=== PATIENT | female | born 1995 | race Caucasian/White ===

== ENCOUNTER 2020-05-19 15:15 | Emergency (ER) | payer OTHER ==
[2020-05-19] MEDS ORDERED: METOCLOPRAMIDE INJ 10MG/2ML VIAL (J2765 PER 1) ONE (17:49)
[2020-05-19] MEDS ORDERED: METOCLOPRAMIDE INJ 10MG/2ML VIAL (J2765 PER 1) As Ordered ONE (17:49)
--- NOTE | 2020-06-29 14:17 | ECGEPIP ---
SINUS RHYTHM NORMAL ECG SEE SCANNED DOWNTIME REPORT MTDD
[2020-07-02 18:20] LABS: BASO % 0.6 % (0.0-1.0); EOS # 0.1 10^3/uL (0.0-0.5); EOS % 0.9 % (0.0-3.0); HEMATOCRIT 41.7 % (36.0-47.0); LYMPH # 0.9 10^3/uL (1.5-5.0); LYMPH % 14.1 % (24.0-44.0); MEAN CORPUSCULAR HEMOGLOBIN 27.2 pg (27.0-33.0); MEAN CORPUSCULAR HGB CONC 33.6 g/dl (32.0-36.5); MEAN CORPUSCULAR VOLUME 81.1 fl (80.0-96.0); MONO # 0.4 10^3/uL (0.0-0.8); MONO % 6.6 % (0.0-5.0); NEUTROPHILS % 77.5 % (36.0-66.0); PLATELET COUNT, AUTOMATED 276 10^3/uL (150-450); RED BLOOD COUNT 5.14 10^6/uL (4.00-5.40); WHITE BLOOD COUNT 6.5 10^3/uL (4.0-10.0)
[2020-07-02 18:35] LABS: APPEARANCE, URINE HAZY (CLEAR); BACTERIA, URINE AUTO NEGATIVE (NEGATIVE); BILIRUBIN, URINE AUTO NEGATIVE (NEGATIVE); BLOOD, URINE BLOOD NEGATIVE (NEGATIVE); COLOR, URINE AMBER (YELLOW); GLUCOSE, URINE (UA) AUTO 1+ mg/dL (NEGATIVE); KETONE, URINE AUTO 2+ mg/dL (NEGATIVE); LEUKOCYTE ESTERASE, URINE AUTO NEGATIVE (NEGATIVE); MUCUS, URINE SMALL (NEGATIVE); NITRITE, URINE AUTO NEGATIVE (NEGATIVE); PROTEIN, URINE AUTO 1+ mg/dL (NEGATIVE); RBC, URINE AUTO 0 /HPF (0-3); SPECIFIC GRAVITY URINE AUTO 1.019 (1.002-1.035); SQUAMOUS EPITHELIAL CELL UR AU 3 /HPF (0-6); WBC, URINE AUTO 26 /HPF (0-3)
[2020-08-07 11:46] LABS: ALBUMIN 3.5 GM/DL (3.2-5.2); ALT/SGPT 73 U/L (12-78); BILIRUBIN,DIRECT 0.4 MG/DL (0.0-0.2); BILIRUBIN,TOTAL 1.3 MG/DL (0.2-1.0); BLOOD UREA NITROGEN 7 MG/DL (7-18); CALCIUM LEVEL 9.4 MG/DL (8.5-10.1); CARBON DIOXIDE LEVEL 24 MEQ/L (21-32); CHLORIDE LEVEL 103 MEQ/L (98-107); CK-MB VALUE MASS < 1.0 NG/ML (<3.6); CPK CREATINE PHOSPHOKINASE 109 U/L (26-192); CREATININE FOR GFR 0.72 MG/DL (0.55-1.30); GLOMERULAR FILTRATION RATE > 60.0 (>60); GLUCOSE, FASTING 95 MG/DL (70-100); MAGNESIUM LEVEL 1.9 MG/DL (1.8-2.4); MB/CK RELATIVE INDEX 0.92 (< OR =4); SODIUM LEVEL 136 MEQ/L (136-145); THYROID STIMULATING HORMONE < 0.005 uIU/ML (0.358-3.740); TOTAL PROTEIN 7.5 GM/DL (6.4-8.2); TROPONIN I < 0.02 NG/ML (< 0.10)
== END 2020-05-19 19:43 | disposition home or self-care (01) ==
LOC: M ED 15:15
DX: O26.891 Other specified pregnancy related conditions, first trimester (principal); R55 Syncope and collapse; O21.9 Vomiting of pregnancy, unspecified; Z3A.00 Weeks of gestation of pregnancy not specified
CPT/HCPCS: 80048; 80076; 81001; 82550; 82553; 83735; 84443; 84484; 84703; 85025; 93005; 96374; 99284; J2765

== ENCOUNTER → 2020-05-20 | Emergency (ER) | payer OTHER ==
[~2020-05-20] MED LIST: METOCLOPRAMIDE INJ 10MG/2ML VIAL (J2765 PER 1) As Ordered ONE; METOCLOPRAMIDE INJ 10MG/2ML VIAL (J2765 PER 1) ONE; MULTTAB20 PO; POTASSIUM CHLORIDE 10 MEQ SR TABLET As Ordered ONE; POTASSIUM CHLORIDE 10 MEQ SR TABLET ONE; metroNIDAZOLE (FLAGYL) 500MG TABLET As Ordered ONE; metroNIDAZOLE (FLAGYL) 500MG TABLET ONE
--- NOTE | 2020-06-28 16:49 | ECGEPIP ---
SINUS JUAN CARLOS CARDIA WITH SINUS ARRHYTHMIA BORDERLINE ECG SEE SCANNED DOWNTIME REPORT MTDD
[2020-07-02 09:07] LABS: CHLAMYDIA DNA AMPLIFICATION NEGATIVE (NEGATIVE); GC DNA AMPLIFICATION NEGATIVE (NEGATIVE)
[2020-07-06 11:29] LABS: D-DIMER QUANT 654.72 ng/ml (<500); INR 1.24; PARTIAL THROMBOPLASTIN TIME 26.3 SECONDS (24.2-38.5); PROTHROMBIN TIME 15.9 SECONDS (12.5-14.3)
[2020-07-06 11:48] LABS: APPEARANCE, URINE HAZY (CLEAR); BACTERIA, URINE AUTO NEGATIVE (NEGATIVE); BILIRUBIN, URINE AUTO NEGATIVE (NEGATIVE); BLOOD, URINE BLOOD NEGATIVE (NEGATIVE); COLOR, URINE AMBER (YELLOW); GLUCOSE, URINE (UA) AUTO NEGATIVE (NEGATIVE); KETONE, URINE AUTO 2+ mg/dL (NEGATIVE); LEUKOCYTE ESTERASE, URINE AUTO NEGATIVE (NEGATIVE); MUCUS, URINE SMALL (NEGATIVE); NITRITE, URINE AUTO NEGATIVE (NEGATIVE); PROTEIN, URINE AUTO NEGATIVE (NEGATIVE); RBC, URINE AUTO 3 /HPF (0-3); SPECIFIC GRAVITY URINE AUTO 1.018 (1.002-1.035); SQUAMOUS EPITHELIAL CELL UR AU 6 /HPF (0-6); WBC, URINE AUTO 7 /HPF (0-3)
[2020-07-06 17:18] LABS: BASO # 0.1 10^3/uL (0.0-0.2); BASO % 1.1 % (0.0-1.0); EOS # 0.1 10^3/uL (0.0-0.5); EOS % 1.9 % (0.0-3.0); HEMATOCRIT 36.7 % (36.0-47.0); HEMOGLOBIN 12.2 g/dl (12.0-15.5); LYMPH # 1.4 10^3/uL (1.5-5.0); LYMPH % 26.8 % (24.0-44.0); MEAN CORPUSCULAR HEMOGLOBIN 27.4 pg (27.0-33.0); MEAN CORPUSCULAR HGB CONC 33.2 g/dl (32.0-36.5); MEAN CORPUSCULAR VOLUME 82.5 fl (80.0-96.0); MONO # 0.4 10^3/uL (0.0-0.8); MONO % 6.8 % (0.0-5.0); NEUTROPHILS # 3.4 10^3/uL (1.5-8.5); NEUTROPHILS % 63.2 % (36.0-66.0); PLATELET COUNT, AUTOMATED 251 10^3/uL (150-450); RED BLOOD COUNT 4.45 10^6/uL (4.00-5.40); WHITE BLOOD COUNT 5.3 10^3/uL (4.0-10.0)
[2020-08-08 18:45] LABS: HCG, SERUM QUALITATIVE POSITIVE (NEGATIVE)
[2020-08-08 18:48] LABS: BLOOD UREA NITROGEN 4 MG/DL (7-18); CALCIUM LEVEL 8.7 MG/DL (8.5-10.1); CARBON DIOXIDE LEVEL 25 MEQ/L (21-32); CHLORIDE LEVEL 105 MEQ/L (98-107); CK-MB VALUE MASS < 1.0 NG/ML (<3.6); CPK CREATINE PHOSPHOKINASE 34 U/L (26-192); CREATININE FOR GFR 0.56 MG/DL (0.55-1.30); GLOMERULAR FILTRATION RATE > 60.0 (>60); GLUCOSE, FASTING 84 MG/DL (70-100); LIPASE 54 U/L (73-393); MB/CK RELATIVE INDEX 2.94 (< OR =4); POTASSIUM SERUM 3.4 MEQ/L (3.5-5.1); SODIUM LEVEL 137 MEQ/L (136-145)
== END | disposition home or self-care (01) ==
LOC: M ED 13:45
DX: O26.51 Maternal hypotension syndrome, first trimester (principal); O23.591 Infection of other part of genital tract in pregnancy, first trimester; Z3A.10 10 weeks gestation of pregnancy
CPT/HCPCS: 76801; 80048; 80076; 81001; 82550; 82553; 83690; 84703; 85025; 85379; 85610; 85730; 86850; 86900; 86901; 87086; 87210; 87491; 87591; 93005; 93970; 93976; 96374; 99284; J2765

== ENCOUNTER 2020-08-17 19:01 | Emergency (ER) | payer OTHER ==
[~2020-08-17] VITALS: Ht 167.6 cm; Wt 78.6 kg
[2020-08-17] MEDS ORDERED: MULTTAB20 PO (19:13)
[2020-08-17] MEDS ORDERED: NS 1,000 ML IV ONE (21:30)
[2020-08-17 21:52] LABS: APPEARANCE, URINE HAZY (CLEAR); BACTERIA, URINE AUTO NEGATIVE (NEGATIVE); BILIRUBIN, URINE AUTO NEGATIVE (NEGATIVE); BLOOD, URINE BLOOD NEGATIVE (NEGATIVE); COLOR, URINE YELLOW (YELLOW); GLUCOSE, URINE (UA) AUTO NEGATIVE (NEGATIVE); KETONE, URINE AUTO NEGATIVE (NEGATIVE); LEUKOCYTE ESTERASE, URINE AUTO NEGATIVE (NEGATIVE); NITRITE, URINE AUTO NEGATIVE (NEGATIVE); PROTEIN, URINE AUTO NEGATIVE (NEGATIVE); RBC, URINE AUTO 1 /HPF (0-3); SQUAMOUS EPITHELIAL CELL UR AU 2 /HPF (0-6); UROBILINOGEN, URINE AUTO 0.2 mg/dL (0.0-2.0); WBC, URINE AUTO 1 /HPF (0-3)
[2020-08-17 22:15] LABS: BASO # 0.1 10^3/uL (0.0-0.2); BASO % 0.5 % (0.0-1.0); EOS # 0.2 10^3/uL (0.0-0.5); EOS % 1.4 % (0.0-3.0); HEMATOCRIT 34.2 % (36.0-47.0); HEMOGLOBIN 10.5 g/dl (12.0-15.5); LYMPH # 2.1 10^3/uL (1.5-5.0); LYMPH % 17.2 % (24.0-44.0); MEAN CORPUSCULAR HEMOGLOBIN 26.7 pg (27.0-33.0); MEAN CORPUSCULAR HGB CONC 30.7 g/dl (32.0-36.5); MONO # 0.7 10^3/uL (0.0-0.8); NEUTROPHILS # 8.8 10^3/uL (1.5-8.5); NEUTROPHILS % 74.1 % (36.0-66.0); PLATELET COUNT, AUTOMATED 277 10^3/uL (150-450); RED BLOOD COUNT 3.93 10^6/uL (4.00-5.40); WHITE BLOOD COUNT 11.9 10^3/uL (4.0-10.0)
[2020-08-17 22:48] LABS: CK-MB VALUE MASS < 1.0 NG/ML (<3.6); CPK CREATINE PHOSPHOKINASE 30 U/L (26-192); MB/CK RELATIVE INDEX 3.33 (< OR =4); TROPONIN I < 0.02 NG/ML (< 0.10)
[2020-08-17 22:53] LABS: ALBUMIN 2.6 GM/DL (3.2-5.2); ALT/SGPT 17 U/L (12-78); BILIRUBIN,DIRECT 0.1 MG/DL (0.0-0.2); BILIRUBIN,TOTAL 0.3 MG/DL (0.2-1.0); BLOOD UREA NITROGEN 10 MG/DL (7-18); CALCIUM LEVEL 8.6 MG/DL (8.5-10.1); CARBON DIOXIDE LEVEL 24 MEQ/L (21-32); CHLORIDE LEVEL 108 MEQ/L (98-107); CREATININE FOR GFR 0.59 MG/DL (0.55-1.30); FREE T4 0.92 NG/DL (0.76-1.46); GLOMERULAR FILTRATION RATE > 60.0 (>60); GLUCOSE, FASTING 86 MG/DL (70-100); LIPASE 100 U/L (73-393); POTASSIUM SERUM 3.8 MEQ/L (3.5-5.1); SODIUM LEVEL 139 MEQ/L (136-145); TOTAL PROTEIN 6.2 GM/DL (6.4-8.2)
[2020-08-17 23:47] VITALS: BP 125/63
--- NOTE | 2020-08-18 13:37 | ECGEPIP ---
[facility] - ED Test Date: 2020-08-17 Pat Name: LIANE FIGUEROA Department: Room: - Gender: Female [employer]: BARNEY : 1995 Requested By: ELPIDIO Nuñez PA-C Order Number: [id number] Reading MD: Lilli Hurst Measurements Intervals [place] Rate: 68 P: 54 AK: 137 QRS: 20 QRSD: 102 T: 30 QT: 400 QTc: 428 Interpretive Statements SINUS RHYTHM WITH SINUS ARRHYTHMIA No prior Electronically Signed on 08-18-2020 13:37:24 EST by Lilli Hurst
== END 2020-08-17 23:49 | disposition home or self-care (01) ==
LOC: M ED 19:01
DX: O99.891 Other specified diseases and conditions complicating pregnancy (principal); R42 Dizziness and giddiness; Z87.891 Personal history of nicotine dependence; Z3A.22 22 weeks gestation of pregnancy; Z87.828 Personal history of other (healed) physical injury and trauma

== ENCOUNTER 2020-09-12 13:49 | Outpatient (CLI) | payer OTHER ==
[~2020-09-12] VITALS: Ht 167.6 cm; Wt 83.1 kg
[~2020-09-12 13:49] MED LIST changes: -METOCLOPRAMIDE INJ 10MG/2ML VIAL (J2765 PER 1) As Ordered ONE; -METOCLOPRAMIDE INJ 10MG/2ML VIAL (J2765 PER 1) ONE; -POTASSIUM CHLORIDE 10 MEQ SR TABLET As Ordered ONE; -POTASSIUM CHLORIDE 10 MEQ SR TABLET ONE; -metroNIDAZOLE (FLAGYL) 500MG TABLET As Ordered ONE; -metroNIDAZOLE (FLAGYL) 500MG TABLET ONE
[2020-09-12 14:10] VITALS: BP 129/64
[2020-09-12 15:21] VITALS: BP 112/57
[2020-09-12 16:08] VITALS: BP 99/57
[2020-09-12] MEDS ORDERED: ACETAMINOPHEN 500 MG TAB PO ONE (16:30)
[2020-09-12 17:16] LABS: HEMATOCRIT 32.9 % (36.0-47.0); HEMOGLOBIN 10.3 g/dl (12.0-15.5); MEAN CORPUSCULAR HEMOGLOBIN 26.3 pg (27.0-33.0); MEAN CORPUSCULAR HGB CONC 31.3 g/dl (32.0-36.5); MEAN CORPUSCULAR VOLUME 84.1 fl (80.0-96.0); PLATELET COUNT, AUTOMATED 254 10^3/uL (150-450); RED BLOOD COUNT 3.91 10^6/uL (4.00-5.40); WHITE BLOOD COUNT 10.9 10^3/uL (4.0-10.0)
[2020-09-12 17:23] VITALS: BP 110/58
[2020-09-12 17:49] VITALS: BP 107/57
== END 2020-09-12 18:09 | disposition home or self-care (01) ==
LOC: M LDO 13:49
PROVIDERS: ATTEND Registered Nurse
DX: O99.891 Other specified diseases and conditions complicating pregnancy (principal); Z3A.26 26 weeks gestation of pregnancy; W01.0XXA Fall on same level from slipping, tripping and stumbling without subsequent striking against object, initial encounter
CPT/HCPCS: 36415; 76815; 85027; 85460; G0378; G0463

== ENCOUNTER 2020-11-24 05:23 | Inpatient (IN) | payer OTHER ==
--- NOTE | 2020-11-23 12:59 | HPE ---
HISTORY AND PHYSICAL DATE OF ADMISSION: 11/24/2020 HISTORY OF PRESENT ILLNESS: This lady is a 24-year-old 4, para 2, last menstrual period (LMP) March 04, 2020, estimated date of confinement (EDC) December 16, 2020 by dating ultrasound at eight weeks, two days. Her past history was a previous section times two. Initial section was at 39 weeks because of a breech presentation and the second was an elective repeat section. She came in several days ago with acute itching. liver enzymes were performed and she was given ursodiol for the severe itching and her section was moved up to November 24, 2020. She received a Beta 12 mg 11/22/2020 and received her second dose on 11/23/2020. PAST MEDICAL HISTORY: 1. 10/23/2011 at 38 weeks, primary section, breech presentation, 8 pounds 5 ounces; infant required hip braces for four months. 2. 10/30/2016 at 39 weeks, elective repeat section, 7 pounds 11 ounces. 3. Several years later, had a spontaneous at 6 weeks, which was confirmed. PHYSICAL EXAMINATION: The rest of the examination is unremarkable. She is normocephalic, atraumatic. Neck full range of motion. Pupils equal and reactive to light. Distal pulses are symmetric. No evidence of deep venous thrombosis (DVT), pulmonary embolism (PE) or superficial phlebitis. CHEST: Clear bilaterally to bases. No wheezes or rhonchi. No CVAT. ABDOMEN: Soft. Four quadrant bowel sounds are noted. Symphysis fundus height is 36.5. heart is 145 and regular. Her weight today is 198.8 pounds. She is 5 feet 6 inches. Her initial body mass index (BMI) at visit was 25.8. Blood pressure 131/65, respirations 18, pulse 72. LABORATORY DATA: She is A positive. Human immunodeficiency virus negative. Hepatitis negative. RPR negative. Rubella immune. Varicella nonimmune. Pap was normal. Urine was mixed thuan. Gonorrhea and chlamydia were negative. Her one-hour glucose was 113. Group B Streptococcus (GBS) is pending. We reviewed the risks and benefits of section including hemorrhage, infection, perforation, , reoperation, remote possibility of blood transfusion, remote possibility of hysterectomy for life-threatening bleeding issues, remote possibility of laceration and/or baby in the intensive care unit (NICU) for respiratory difficulty, despite the fact she has had two Beta shots already. Patient expressed understanding of risks and benefits, has significant itching today. She had a nonstress test, which is reactive. All questions were answered, 30 minute discussion. Patient signed a consent form. She is scheduled for COVID testing. supervisor rod placing her medications at [place]. [facility]
[~2020-11-24] VITALS: Ht 167.6 cm; Wt 90.4 kg
[2020-11-24] VITALS (8 sets, daily range): BP systolic 114–128; BP diastolic 56–82
[~2020-11-24 05:23] MED LIST changes: +[UNRECOGNIZED DRUG - OTHER] PO; +[UNRECOGNIZED DRUG - REMARK] PO
--- OUTSIDE RECORDS SUMMARY | 2020-11-24 05:27 | CCD ---
Author Author [facility] Organization [facility] Address Unknown Phone Unavailable Care Team Providers Care Fence Laborer Name Role Phone Li, Zhenbo PA Unavailable Unavailable Li, Zhenbo PA Unavailable Unavailable Li, Zhenbo PA Unavailable Unavailable Li, Zhenbo PA Unavailable Unavailable Swatsworth, A Alfonso PA Unavailable Unavailable Swatsworth, A Alfonso PA Unavailable Unavailable Swatsworth, A Alfonso PA Unavailable Unavailable Swatsworth, A Alfonso PA Unavailable Unavailable Swatsworth, A Alfonso PA Unavailable Unavailable Swatsworth, A Alfonso PA Unavailable Unavailable Swatsworth, A Alfonso PA Unavailable Unavailable Swatsworth, A Alfonso PA Unavailable Unavailable Swatsworth, A Alfonso PA Unavailable Unavailable Swatsworth, A Alfonso PA Unavailable Unavailable Swatsworth, A Alfonso PA Unavailable Unavailable Swatsworth, A Alfonso PA Unavailable Unavailable Swatsworth, A Alfonso PA Unavailable Unavailable Swatsworth, A Alfonso PA Unavailable Unavailable Giuliana MOORE MD Unavailable Unavailable Giuliana MOORE MD Unavailable Unavailable Giuliana MOORE MD Unavailable Unavailable Giuliana MOORE MD Unavailable Unavailable Giuliana MOORE MD Unavailable Unavailable Giuliana MOORE MD Unavailable Unavailable Giuliana MOORE MD Unavailable Unavailable Giuliana MOORE MD Unavailable Unavailable Giuliana MOORE MD Unavailable Unavailable Giuliana MOORE MD Unavailable Unavailable Giuliana MOORE MD Unavailable Unavailable Giuliana MOORE MD Unavailable Unavailable TERESA F SUNNI CHAMPION Unavailable Unavailable TERESAGiuliana MD Unavailable Unavailable TERESA F SUNNI CHAMPION Unavailable Unavailable TERESA, F SUNNI CHAMPION Unavailable Unavailable TERESA, F SUNNI CHAMPION Unavailable Unavailable TERESA, F SUNNI CHAMPION Unavailable Unavailable TERESA, F SUNNI CHAMPION Unavailable Unavailable TERESA, F SUNNI CHAMPION Unavailable Unavailable TERESA, F SUNNI CHAMPION Unavailable Unavailable TERESA, F SUNNI CHAMPION Unavailable Unavailable TERESA, F SUNNI CHAMPION Unavailable Unavailable TERESA, F SUNNI CHAMPION Unavailable Unavailable TERESA, F SUNNI CHAMPION Unavailable Unavailable TERESA, F SUNNI CHAMPION Unavailable Unavailable TERESA, F SUNNI CHAMPION Unavailable Unavailable UNKNOWN, [facility] Unavailable Unavailable TURRIN, TATI Unavailable Unavailable TURRIN, TATI Unavailable Unavailable TURRIN, TATI Unavailable Unavailable TURRIN, TATI Unavailable Unavailable Sandra, J Anjum PA-C Unavailable Unavailable Sandra, J Anjum PA-C Unavailable Unavailable Sandra, J Anjum PA-C Unavailable Unavailable Sandra, J Anjum PA-C Unavailable Unavailable Sandra, J Anjum PA-C Unavailable Unavailable Sandra, J Anjum PA-C Unavailable Unavailable Sandra, J Anjum PA-C Unavailable Unavailable Sandra, J Anjum PA-C Unavailable Unavailable Sandra, J Anjum PA-C Unavailable Unavailable Sandra, J Anjum PA-C Unavailable Unavailable Sandra, J Anjum PA-C Unavailable Unavailable Kendrick RODRIGUEZ MD Unavailable Unavailable Kendrick RODRIGUEZ MD Unavailable Unavailable Kendrick RODRIGUEZ MD Unavailable Unavailable Kendrick RODRIGUEZ MD Unavailable Unavailable Kendrick RODRIGUEZ MD Unavailable Unavailable Kendrick RODRIGUEZ MD Unavailable Unavailable Kendrick RODRIGUEZ MD Unavailable Unavailable Kendrick RODRIGUEZ MD Unavailable Unavailable Kendrick RODRIGUEZ MD Unavailable Unavailable Kendrick RODRIGUEZ MD Unavailable Unavailable Kendrick RODRIGUEZ MD Unavailable Unavailable Kendrick RODRIGUEZ MD Unavailable Unavailable Kendrick RODRIGUEZ MD Unavailable Unavailable Kendrick RODRIGUEZ MD Unavailable Unavailable Kendrick RODRIGUEZ MD Unavailable Unavailable Kendrick RODRIGUEZ MD Unavailable Unavailable Kendrick RODRIGUEZ MD Unavailable Unavailable Kendrick RODRIGUEZ MD Unavailable Unavailable Kendrick RODRIGUEZ MD Unavailable Unavailable Kendrick RODRIGUEZ MD Unavailable Unavailable Kendrick RODRIGUEZ MD Unavailable Unavailable Kendrick RODRIGUEZ MD Unavailable Unavailable Kendrick RODRIGUEZ MD Unavailable Unavailable VENERUS, Mumtaz MCCANN MD Unavailable Unavailable VENERUS, Mumtaz MCCANN MD Unavailable Unavailable VENERUS, Mumtaz MCCANN MD Unavailable Unavailable VENERUS, Mumtaz MCCANN MD Unavailable Unavailable VENERUS, Mumtaz MCCANN MD Unavailable Unavailable VENERUS, Mumtaz MCCANN MD Unavailable Unavailable VENERUS, Mumtaz MCCANN MD Unavailable Unavailable VENERUS, Mumtaz MCCANN MD Unavailable Unavailable VENERUS, Mumtaz MCCANN MD Unavailable Unavailable Re-disclosure Warning The records that you are about to access may contain information from federally-assisted alcohol or drug abuse programs. If such information is present, then the following federally mandated warning applies: This information has been disclosed to you from records protected by federal confidentiality rules (42 CFR part 2). The federal rules prohibit you from making any further disclosure of this information unless further disclosure is expressly permitted by the written consent of the person to whom it pertains or as otherwise permitted by 42 CFR part 2. A general authorization for the release of medical or other information is NOT sufficient for this purpose. The Federal rules restrict any use of the information to criminally investigate or prosecute any alcohol or drug abuse patient.The records that you are about to access may contain highly sensitive health information, the redisclosure of which is protected by Article 27-F of the [facility] Public Health law. If you continue you may have access to information: Regarding HIV / AIDS; Provided by facilities licensed or operated by the [facility] Office of Mental Health; or Provided by the [facility] Office for People With Developmental Disabilities. If such information is present, then the following [facility] mandated warning applies: This information has been disclosed to you from confidential records which are protected by state law. State law prohibits you from making any further disclosure of this information without the specific written consent of the person to whom it pertains, or as otherwise permitted by law. Any unauthorized further disclosure in violation of state law may result in a fine or long-term sentence or both. A general authorization for the release of medical or other information is NOT sufficient authorization for further disc losure. Allergies and Adverse Reactions Type Description Substance Reaction Status Data Source(s ) No Known Allergies No Known Allergies [facility] Hospital Encounters Encounter Providers Location Date Indications Data Source(s ) Outpatient Attender: SUNNI MOORE MDConsultant: MIKE Belcher NKNOWRiccardo 11/13/2020 07:27:00 PM EST - 11/13/2020 09:59:00 PM [facility] Patient discharged. Emergency Attender: Anjum Flores PA-C 01/2020 02:08:00 PM EDT - 05/16/2020 05:45:00 PM EDT [facility] Patient discharged. Inpatient Attender: Rebecca Mosquera PAAttender: TATI MILNER 05/08/2020 01:45:00 PM EDT - 05/12/2020 02:00:00 PM EDT [facility] Patient discharged. Emergency Attender: JEFE LOWERY MD 05/05 08:12:00 AM EDT - 05/05/2020 12:59:00 PM EDT [facility] Patient discharged. Emergency Attender: TATI MILNER 2019 09:16:00 PM EDT - 05/04/2020 01:07:00 AM EDT [facility] Patient discharged. Emergency Attender: TATI MILNER 2019 06:58:00 PM EDT - 05/01/2020 10:04:00 PM EDT [facility] Patient discharged. Emergency Attender: ABIGAIL RODRIGUEZ MD 2019 06:07:00 PM EDT - 04/27/2020 09:28:00 PM EDT [facility] Patient discharged. Emergency Attender: Alfonso BANKS 04/2020 09:32:00 PM EDT - 04/19/2020 12:11:00 AM EDT [facility] Patient discharged. Medications Medication Brand Name Start Date Product Form Dose Route Admi nistrative Instructions Pharmacy Instructions Status Indications Reaction Description Data Source(s) 400 mg (241.3 mg magnesium) 05/13/2020 12:00:00 AM EDT table t 40 TAKE ONE TABLET BY MOUTH TWICE A DAY TAKE ONE TABLET BY MOUTH TWICE A DAY SOLD: 05/13/2020 [facility] Meclizine Hydrochloride 25 MG Oral Tablet MECLIZINE HCL 05/12/2020 12:00:00 AM EDT tablet 30 TAKE ONE TABLET BY MOUTH TWI CE A DAY TAKE ONE TABLET BY MOUTH TWICE A DAY SOLD: 05/13/2020 [facility] Insurance Providers Payer name Policy type / Coverage type Policy ID Covered constitution party ID Covered constitution party's relationship to tavera Policy Tavera Plan Information [facility] [id number] [facility] [id number] [facility] - O/P [id number] 01 [id number] [facility] - I/P [id number] 01 [id number] [facility] - PHYSICIAN [id number] 01 [id number] Problems, Conditions, and Diagnoses Code Display Name Description Problem Type Effective Dates Data Source(s) Z3A35 35 weeks gestation of 35 weeks gestation of Diagnosis 11/13/2020 07:27:00 PM [facility] [id number] Maternal care for low transverse scar fr om previous delivery Maternal care for low transverse scar from previous delivery Diagnosis 11/13/2020 07:27:00 PM [facility] Z3A09 9 weeks gestation of 9 weeks gestation of pr egnancy Diagnosis 05/16/2020 02:08:00 PM EDT [facility] O211 Hyperemesis gravidarum with metabolic di sturbance Hyperemesis gravidarum with metabolic disturbance Diagnosis 05/16/2020 02:08:00 PM EDT [facility] O219 Vomiting of , unspecified Vomiting of p regnancy, unspecified Diagnosis 05/16/2020 02:08:00 PM EDT [facility] N30673 Endocrine, nutritional and m etabolic diseases complicating , first trimester Endocrine, nutritional and metabolic dis eases complicating , first trimester Diagnosis 05/08/2020 01:45:00 PM EDT [facility] E8342 Hypomagnesemia Hypomagnesemia Diagnosis 05/08/2020 01:45: 00 PM EDT [facility] E860 Dehydration Dehydration Diagnosis 05/08/2020 01:45:00 PM EDT [facility] R824 Acetonuria Acetonuria Diagnosis 05/08/2020 01:45:00 PM ED T [facility] Z3A08 8 weeks gestation of 8 weeks gestation of pr egnancy Diagnosis 05/08/2020 01:45:00 PM EDT [facility] E869 Volume depletion, unspecified Volume depletion, unspec ified Diagnosis 05/05/2020 08:12:00 AM EDT [facility] V93803 Other specified related condit ions, first trimester Other specified related conditions, first trimester Diagnosis 05/05/2020 08:12:00 AM EDT [facility] Z3A01 Less than 8 weeks gestation of Less than 8 weeks gestation of Diagnosis 05/01/2020 06:58:00 PM EDT [facility] E876 Hypokalemia Hypokalemia Diagnosis 04/27/2020 06:07:00 PM EDT [facility] R102 Pelvic and perineal pain Pelvic and perineal pain Diag nosis 04/18/2020 09:32:00 PM [facility] Surgeries/Procedures Procedure Description Date Indications Data Source(s) Introduction of Electrolytic and Water B alance Substance into Peripheral Vein, Percutaneous Approach Introduction of Electrolytic and Water B alance Substance into Peripheral Vein, Percutaneous Approach 05/11/2020 12:00:00 AM [facility] Results ID Date Data Source [id number] 11/17/2020 02:38:00 PM EST [facility] Name Value Range Interpretation Code Description Data Marilia rce(s) Supporting Document(s) CULTURE URINE [facility] spital _CULTURE URINE_$$[id number]$$125256$$155698$$334168$$132394$$410553$$569139$$968456$$631667$$ 688734$$222936$$819092$$019127$$817390$$768523$$503973$$355962$$251624$$616412$$ 204363$$784811$$343091$$274784$$942467$$019052$$519854$$899805 -- Continued on next page --Patient: CAROLINA Pope Order: [id number] Page 2Culture: CULTURE URINE Status: Final ==== -- Continued on next page --Patient: CAROLINA Pope Order: [id number] Page 2Culture: CULTURE URINE Status: Prelim ===== -- Continued on next page --Patient: CAROLINA Pope Order: [id number] Page 2Culture: CULTURE URINE Status: Prelim =====$$[id number]$$[id number] DATE/TIME: 11/17/2020 14:07Culture: CULTURE URINE Status: FinalUrine Culture,Comprehensive: P1No growth in 36 - 48 hours. Previous result entered on 11/16/2020 13:31 ET Specimen has been received and testing has been initiated. Previous result entered on 11/16/2020 04:45 ET Specimen has been received and testing has been initiated.P1 Test performed by: [facility] #: [id number] [address] [place] [address] [id number] [facility] [id number] Director : Hero Lezama MD NPI #:Rig Operator : 11/16/[email or web address].SENT REF 11/16/20.1744.XMT.SENT REF 11/17/20.1438.XMT.SENT REF ID Date Data Source [id number] 11/13/2020 07:55:00 PM EST [facility] Name Value Range Interpretation Code Description Data Marilia rce(s) Supporting Document(s) UR[facility]ALYSIS [facility] URINALYSIS SOURCE R [facility] COLOR yellow NORMAL: Yellow [facility] CLARITY clear NORMAL: Clear [facility] Specific gravity of Urine by Test strip 1.020 1.001 - 1.030 [facility] pH 6 5 - 9 [facility] Hospit [facility] Glucose [Mass/volume] in Urine by Test strip NORM NORMAL: Negat [facility] Bilirubin.total [Presence] in Urine by Test strip NEG NORMAL: Negative [facility] Ketones [Presence] in Urine by Test strip 15 NORMAL: Negative A [facility] Protein [Mass/volume] in Urine by Test strip NEG NORMAL: Negat [facility] Nitrite [Presence] in Urine by Test strip NEG NORMAL: Negative [facility] BLOOD NEG NORMAL: Negative [facility] Leukocyte esterase [Presence] in Urine by Test strip NEG ABIGAIL L: Negative [facility] Urobilinogen [Mass/volume] in Urine by Test strip NOR less jeromy n 1.0 mg/dL [facility] MICROSCOPIC Not Indicate [facility] ID Date Data Source [id number] 10/11/2020 11:32:00 AM EST [facility] Name Value Range Interpretation Code Description Data Marilia rce(s) Supporting Document(s) SARS-COV-2 RNA RESP QL [facility]AN[facility]BE [facility] This lab was ordered by [id number] and rep orted by [employer] [place]. ID Date Data Source [id number] 05/17/2020 09:53:00 AM EDT [facility] [address] [place] [address] PHONE: [phone] FAX: [phone] Name .................. : CAROLINA Pope Acct Number.................. : [id number] ROOM. ................. : [place] Number ................... : [id number] Stay type ............. : E/R Discharge Date......... ... : 05/16/20 Admit Date ......... : 05/16/20 Admit Phys .................... : SANDRA LIO Date of ....... : 1995 Family Phys ................... : UNKNOWN Phone .................. : [phone] Age ................................ : 24 Film# .................. .:[id number] Sex ................................. : F Unsigned transcriptions are preliminary reports and do not represent a medical or legal document OB 1ST TRI UP TO 14 WEEKS 58718 COMPLETE:05/16/20 15:12 KNB 37922 Reason(s): lower abd pain, vomiting OBSTETRICAL ULTRASOUND: HISTORY: Lower abdominal pain and vomiting. FINDINGS: The uterus measures 9.3 x 7.6 x 6.2 cm. The right ovary measures 2.7 x 2.9 x 3.0 cm. The left ovary measures 2.3 x 1.9 x 1.7 cm. Within the endometrial cavity, there is a single live intrauterine gestation with a crown rump length measuring 28 mm, which corresponds to 9 weeks 5 days plus/minus 1 week. EDC is 12/14/20. heart rate is 172 beats per minute. IMPRESSION: Single live intrauterine gestation at 9 weeks 5 days. EDC is 12/14/20. EDC based on the initial sonogram was 12/17/20. This indicates appropriate interval growth. heart rate is 172 beats per minute. Examination dictated by DARREN Porras. Examination was reviewed with Sudhakar Sahni MD, radiologist at the time of this dictation. Electronically Reviewed and Signed By Sudhakar Sahni MD , 05/17/20 09:53, AML Transcribe Initials: DZ , Transcribe Date: 05/17/20 00:34, Dictation Date: Copy for: SANDRA Pandya via fax Copy for: EMERGENCY DEPT via modem Page 1 of 2 [facility] [address] [facility] [place] [address] PHONE: [phone] FAX: [phone] Name .................. : CAROLINA Pope Acct Number.................. : [id number] ROOM. ................. : [place] MR Number ................... : [id number] Stay type ............. : E/R Discharge Date......... ... : 05/16/20 Admit Date ......... : 05/16/20 Admit Phys .................... : SANDRA LIO Date of ....... : 1995 Family Phys ................... : UNKNOWN Phone .................. : [phone] Age ................................ : 24 Film# .................. .:[id number] Sex ................................. : F Unsigned transcriptions are preliminary reports and do not represent a medical or legal document US OB 1ST TRI UP TO 14 WEEKS 51375 COMPLETE:05/16/20 15:12 KNB 74930 Reason(s): lower abd pain, vomiting Copy for: 710 MED REC DISCHARGED Page 2 of 2 Name Value Range Interpretation Code Description Data Marilia rce(s) Supporting Document(s) ID Date Data Source [id number] 05/16/2020 02:08:00 PM EDT [facility] 1 OrderSheet [facility] Emergency Department [address] [place] [address] Phone #: ext- [phone] 05/16/2020 13:54 Patient: LIANE FIGUEROA Sex: F : 1995 Age: 24yWEIGHT:67.5 kg (S) HEIGHT:66 inches (S) BMI:24.0ALLERGIES: No Known Drug AllergyCHIEF COMPLAINT: vomitingDIAGNOSIS: Hyperemesis gravidarum, Urinary tract infectious diseaseLAB ORDERSOrder Description Priority Entered Acknowledged InitialedBeta-HCG, Quant STAT 14:43 05/16/2020 14:44 Sumi,Serum Anjum BANKS; Noam GoCBC w Diff STAT 14:43 05/16/2020 14:44 Anjum oJnas; Noam GoCMP STAT 14:43 05/16/2020 14:44 Anjum Jonas; Noam GoLactic Acid STAT 14:43 05/16/2020 14:44 Anjum Jonas; Noam GoLipase STAT 14:43 05/16/2020 14:44 Anjum Jonas; Noam GoUrinalysis (Clean STAT 14:43 05/16/2020 16:45 Nelly,Catch) Anjum BANKS; Veronica GoCulture, Urine STAT 17:23 05/16/2020 18:21 Sumi,(Urine, Clean Anjum BANKS; Noam GoCatch)DIAGNOSTIC STUDY ORDERSOrder Description Priority Entered Acknowledged InitialedUS OB 1ST TRI UP STAT 14:43 05/16/2020 14:44 Sumi,TO 14 WEEKS Anjum BANKS; Noam Go(Oxygen?(No))(IV?(Yes)) Reason for Study: lower abd pain, vomitingMEDICATION/IV/DRIP/FLUID ORDERSOrder Description Priority Entered Acknowledged InitialedNS IV : Bolus 1000 14:43 05/16/2020 15:13 Sumi,mL, then 125 mL/hr Anjum BANKS; Noam Go(NOW x1)Reglan 10 mg IVP 14:43 05/16/2020 15:03 Sumi,X1 dose: 10 mg Anjum BANKS; Noam Go 2 OrderSheet [facility] Emergency Department [address] [place] [address] Phone #: ext- [phone] 05/16/2020 13:54 Patient: LIANE FIGUEROA Sex: F : 1995 Age: 24y(NOW x1)GENERAL ORDERSOrder Description Priority Entered Acknowledged InitialedNPO 14:43 05/16/2020 14:44 Anjum Jonas; Noam GoWarm blanket 14:43 05/16/2020 14:44 Anjum Jonas; Noam GoVitals 14:43 05/16/2020 14:44 Anjum Jonas; Noam Go[Electronically signed by Noam Jonas R.N. (18:21 05/16/2020)][Electronically signed by Anjum Flores (18:27 05/16/2020)][Electronically locked by Noam Jonas R.N. (18:21 05/16/2020)] Name Value Range Interpretation Code Description Data Marilia rce(s) Supporting Document(s) ID Date Data Source [id number] 05/16/2020 02:08:00 PM EDT [facility] 1 Medication Reconciliation Report [facility] Emergency Department [address] [place] [address] Phone #: ext- [phone] 05/16/2020 13:54 Patient: LIANE FIGUEROA Sex: F : 1995 Age: 24yWeight: 67.5 kgHeight/Length: 66 in.BMI: 24.0ALLERGIES: No Known Drug AllergyThe patient's Home Medications are listed below:CONTINUE TAKING THE FOLLOWING MEDICATIONS: Meclizine HCl Oral 25 mg, prnThe source(s) of the original Home Medication information:patientThe following Medications were given to the patient in the Emergency Department:Reglan [IVP] IVP 10 mg, administered: 05/16/2020 2:48:00 PMNS [IV] IV Fluids bolus 0, then 1500 mL/hr, administered: 05/16/2020 3:12:00 PMThe following Medications were prescribed to the patient:Macrobid 100 mg capsule Take 1 capsule twice a day as directed for 7 days -- for UTI. Dispense 14capsule. Refills: 0. Substitution permitted.Pharmacy - [facility] [id number] ; [place] [address]. . -- DARREN Taylor Name Value Range Interpretation Code Description Data Marilia rce(s) Supporting Document(s) ID Date Data Source [id number] 05/16/2020 02:08:00 PM EDT [facility] 1 Medication Administration Record [facility] Emergency Department [address] [place] [address] Phone #: ext- [phone] 05/16/2020 13:54 Patient: LIANE FIGUEROA Sex: F : 1995 Age: 24yWeight: 67.5 kgHeight/Length: 66 inBMI: 24ALLERGIES: No Known Drug Allergy Date/Time Medication Administered Medication OrderedStart NS [IV] NS IV : Bolus 1000 mL, then 23922:12 05/16/2020 Dose: IV Fluids mL/hr (NOW x1)Noam Jonas RAnastacio Rate: 1500 mL/hr over 40 minute(s)---- Dispensed: 1000 mL bagStop Site: #1 right AC16:45 05/16/2020Veronica Villegas R.N.Given REGLAN [IVP] (METOCLOPRAMIDE Reglan 10 mg IVP X1 dose: 10 mg14:48 05/16/2020 HCL) (NOW x1)Noam Jonas R.N. Dose: 10 mg IVP Site: #1 right AC Name Value Range Interpretation Code Description Data Marilia rce(s) Supporting Document(s) ID Date Data Source [id number] 05/16/2020 02:08:00 PM EDT [facility] 1 General Instructions [facility] Emergency Department [address] [place] [address] Phone #: ext- [phone] 05/16/2020 13:54 Patient: LIANE FIGUEROA Sex: F : 1995 Age: 24yAcute urinary tract infection with cystitis and hematuria. Not associated with indwelling catheter orobstruction.Moderate hyperemesis gravidarum less than 21 weeks with dehydration.INSTRUCTIONSNo strenuous activity until better. Rest at home for two days. Do not work for two days.Drink plenty of fluids for the next 48 hours as needed. Avoid alcohol and NSAIDS. NSAIDS includeaspirin, ibuprofen (Advil) and naproxen (Aleve). Avoid fatty, fried/greasy, lactose-containing (such as milk,cheese and ice cream), salty and spicy foods until better. No alcohol. Do not smoke.Warnings: Further evaluation is necessary. It is very important to follow up with a healthcare provider.GENERAL WARNINGS: Return or contact your physician immediately if your condition worsens orchanges unexpectedly, if not improving as expected, or if other problems arise. SPECIFICALLY, return ifyou develop pain in the abdomen, back or shoulder, fever, vomiting, the inability to keep fluids down, bloodin vomitus, blood in diarrhea, fainting, lightheadedness or vaginal bleeding.Your Current Medications: Your current home medications have been reviewed.CONTINUE TAKING THE FOLLOWING MEDICATIONS:Meclizine HCl Oral : 25 mg, prn.Prescription Medications:Macrobid 100 mg capsule Take 1 capsule twice a day as directed for 7 days -- for UTI. Dispense 14capsule. Refills: 0. Substitution permitted.Pharmacy - [facility] [place] - [id number] ; [place] [address]. .Follow-up:Follow up with your healthcare provider in three days even if well. Call for the next available appointment.Reason for referral: evaluation. Summary of care provided to patient and follow-up provider via paper.Understanding of the discharge instructions verbalized by patient. Expected course of illness, dischargeinstructions, activity level, prescriptions x1, follow-up appointment a nd risks and benefits of treatmentreviewed with patient and understanding verbalized. Agrees to plan of care. ADDITIONAL INFORMATION 2 General Instructions [facility] Emergency Department [address] [place] [address] Phone #: ext- [phone] 05/16/2020 13:54 Patient: LIANE FIGUEROA ct#: [id number] Sex: F : 1995 Age: 24yBladder Infection, Female (Adult)Urine is normally doesn't have any bacteria in it. But bacteria can get into the urinary tract from theskin around the rectum. Or they can travel in the blood from elsewhere in the body. Once they are inyour urinary tract, they can cause infection in the urethra (urethritis), the bladder (cystitis), or thekidneys (pyelonephritis).The most common place for an infection is in the bladder. This is called a bladder infection. This isone of the most common infections in women. Most bladder infections are easily treated. They arenot serious unless the infection spreads to the kidney.The phrases "bladder infection," "UTI," and "cystitis" are often used to describe the same thing. Butthey are not always the same. Cystitis is an inflammation of the bladder. The most common cause ofcystitis is an infection.SymptomsThe infection causes inflammation in the urethra and bladder. This causes many of the symptoms.The most common symptoms of a bladder infection are: Pain or burning when urinating Having to urinate more often than usual Urgent need to urinate Only a small amount of urine comes out 3 General Instructions [facility] Emergency Department [address] [place] [address] Phone #: ext- [phone] 05/16/2020 13:54 Patient: LIANE FIGUEROA Sex: F : 1995 Age: 24y Blood in urine Abdominal discomfort. This is usually in the lower abdomen above the pubic bone. Cloudy urine Strong- or bad-smelling urine Unable to urinate (urinary retention) Unable to hold urine in (urinary incontinence) Fever Loss of appetite Confusion (in older adults)CausesBladder infections are not contagious. You can't get one from someone else, from a toilet seat, orfrom sharing a bath.The most common cause of bladder infections is bacteria from the bowels. The bacteria get onto theskin around the opening of the urethra. From there, they can get into the urine and travel up to thebladder, causing inflammation and infection. This usually happens because of: Wiping improperly after urinating. Always wipe from front to back. Bowel incontinence Procedures such as having a catheter inserted Older age Not emptying your bladder. This can allow bacteria a chance to grow in your urine. Dehydration Constipation Sex Use of a diaphragm for controlTreatmentBladder infections are diagnosed by a urine test. They are treated with antibiotics and usually clear up 4 General Instructions [facility] Emergency Department [address] [place] [address] Phone #: ext- [phone] 05/16/2020 13:54 Patient: LIANE FIGUEROA Sex: F : 1995 Age: 24yquickly without complications. Treatment helps prevent a more serious kidney infection.MedicinesMedicines can help in the treatment of a bladder infection: Take antibiotics until they are used up, even if you feel better. It is important to finish them to make sure the infection has cleared. You can use acetaminophen or ibuprofen for pain, fever, or discomfort, unless another medicine was prescribed. If you have chronic liver or kidney disease, talk with your healthcare provider before using these medicines. Also talk with your provider if you've ever had a stomach ulcer or gastrointestinal bleeding, or are taking blood-thinner medicines. If you are given phenazopydridine to reduce burning with urination, it will cause your urine to become a bright orange color. This can stain clothing.Care and preventionThese self-care steps can help prevent future infections: Drink plenty of fluids to prevent dehydration and flush out your bladder. Do this unless you must restrict fluids for other health reasons, or your doctor told you not to. Proper cleaning after going to the bathroom is important. Wipe from front to back after using the toilet to prevent the spread of bacteria. Urinate more often. Don't try to hold urine in for a long time. Wear loose-fitting clothes and cotton underwear. Avoid tight-fitting pants. Improve your diet and prevent constipation. Eat more fresh fruit and vegetables, and fiber, and less junk and fatty foods. Avoid sex until your symptoms are gone. Avoid caffeine, alcohol, and spicy foods. These can irritate your bladder. Urinate right after intercourse to flush out your bladder. If you use control pills and have frequent bladder infections, discuss it with your doctor.Follow-up careCall your healthcare provider if all symptoms are not gone after 3 days of treatment. This is especiallyimportant if you have repeat infections.If a culture was done, you will be told if your treatment needs to be changed. If directed, you can 5 General Instructions [facility] Emergency Department [address] [place] [address] Phone #: ext- [phone] 05/16/2020 13:54 Patient: LIANE FIGUEROA Sex: F : 1995 Age: 24ycall to find out the results.If X-rays were done, you will be told if the results will affect your treatment.Call 911Call [phone] if any of the following occur: Trouble breathing Hard to wake up or confusion Fainting or loss of consciousness Rapid heart rateWhen to seek medical adviceCall your healthcare provider right away if any of these occur: Fever of 100.4F (38.0C) or higher, or as directed by your healthcare provider Symptoms are not better by the third day of treatment Back or belly (abdominal) pain that gets worse Repeated vomiting, or unable to keep medicine down Weakness or dizziness Vaginal discharge Pain, redness, or swelling in the outer vaginal area (labia) [id number] [employer]. [address] [place] [id number]. All rights reserved. This information is not intended as asubstitute for professional medical care. Always follow your healthcare professional's instructions.Hyperemesis GravidarumHyperemesis gravidarum is a severe form of morning sickness that can affect some women duringpregnancy. It may develop around the 5th week and last until the 16th week of . In somewomen, it may last longer. Symptoms include severe nausea and vomiting. This can lead to problemssuch as weight loss and dehydration.It's not clear what causes hyperemesis gravidarum. It may be from rising hormone levels early in thepregnancy. It can be a serious threat to mother and fetus if symptoms are severe. Follow the advicebelow carefully. If your symptoms don't get better with home care measures, you may need to stay inthe hospital. In the hospital, you may get IV (intravenous) fluids and medicines. 6 General Instructions [facility] Emergency Department [address] [place] [address] Phone #: ext- [phone] 05/16/2020 13:54 Patient: LIANE FIGUEROA Sex: F : 1995 Age: 24yHome careDiet Keep a log of the foods you eat and how they affect your symptoms. Don't eat foods that trigger your symptoms. Eat small meals often throughout the day rather than 3 large meals. This can help keep your stomach from being empty. An empty stomach can make nausea worse. Choose foods that are high in carbohydrates. Eating foods high in protein may also help. Limit greasy or spicy foods. Before getting out of bed in the morning, try eating crackers or dry toast. This may help settle your stomach. Drink cold, clear liquids. Drinking small amounts of liquids with electrolytes, such as sports drinks, may help as well.Medicine If needed, your healthcare provider may prescribe certain medicines to help ease nausea and vomiting. Your provider may suggest vitamin B6 and nat. Don't try any [id number] medicines or home remedies without talking with your provider first.Follow-up careFollow up with your healthcare provider, or as advised.When to seek medical adviceCall your healthcare provider right away if any of these occur: Signs of dehydration. These include dry mouth, extreme thirst, dark urine or little urine output, dizziness, weakness, or fainting. Vomiting that won't stop Inability to keep down liquids Frequent diarrhea Weight loss or no weight gain over a 2-week period Severe constant pain in the lower right abdomen Fever of 100.4F (38C) or higher, or as directed by your healthcare provider 7 General Instructions [facility] Emergency Department [address] [place] [address] Phone #: ext- [phone] 05/16/2020 13:54 Patient: LIANE FIGUEROA Sex: F : 1995 Age: 24y [id number] [employer] [place] [address]. All rights reserved. This information is not intended as asubstitute for professional medical care. Always follow your healthcare professional's instructions.Lamar DietYour healthcare provider may recommend a bland diet if you have an upset stomach. It consists offoods that are mild and easy to digest. It is better to eat small frequent meals rather than 3 largemeals a day.BeveragesOK: Fruit juices, non-caffeinated teas and coffee, non-carbonated watersAvoid: Carbonated beverage, caffeinated tea and coffee, all alcoholic beveragesBreadOK: Refined white, wheat or rye bread, taco or soda crackers, Ashtyn toast, plain rolls, bagelsAvoid: Whole-grain breadCerealOK: Refined cereals: cooked or ready to eatAvoid: Whole-grain cereals and granola, or those containing bran, seeds or nutsDesserts 8 General Instructions [facility] Emergency Department [address] [place] [address] Phone #: ext- [phone] 05/16/2020 13:54 Patient: LIANE FIGUEROA Sex: F : 1995 Age: 24yOK: Peanut butter and all others except those to "avoid"Avoid: Chocolate, cocoa, coconut, popcorn, nuts, seeds, jam, marmaladeFruitsOK: Canned, cooked, frozen or fresh fruits without seeds or tough skinAvoid: Olives, skin and seeds of fruit, dried fruitMeatsOK: All fresh or preserved meat, fish and fowlAvoid: Any that are prepared with those spices to "avoid"Cheese and eggsOK: Eggs, cottage cheese, cream cheese, other cheesesAvoid: All cheeses made with those spices to "avoid"Potatoes and pastaOK: Potato, rice, macaroni, noodles, spaghettiAvoid: NoneSoupsOK: All soups without heavy seasoningAvoid: Soups made with those spices to "avoid"VegetablesOK: Canned, cooked, fresh or frozen mildly flavored vegetables without seeds, skins or coarse fiberAvoid: Vegetables prepared with those spices to "avoid"; skin and seeds of vegetables and those withcoarse fiber, broccoli, cabbage, cauliflower, cucumber, green peppers, and cornSpicesOK: Salt, lemon and limejuice, vinegar, all extracts, guadalupe, cinnamon, thyme, mace, allspice, paprikaAvoid: [place] powder, cloves, pepper, seed spices, garlic, gravy pickles, highly seasoned saladdressings 9 General Instructions [facility] Emergency Department [address] [place] [address] Phone #: ext- [phone] 05/16/2020 13:54 Patient: LIANE FIGUEROA Sex: F : 1995 Age: 24y [phone] [employer]. [address] [place], [place] [id number]. All rights reserved. This information is not intended as asubstitute for professional medical care. Always follow your healthcare professional's instructions.Clear Liquid DietClear liquids are any liquid that you can see through. They are also very easy to digest. You may beput on a clear liquid diet if you are recovering from irritation or infection of the stomach or intestinaltract. This diet may also be used before surgery or special procedures such as a colonoscopy. Youshould not be on this diet for more than 3 days. Below are some clear liquids you can have on thisdiet.Adults and children over 2 years oldAdults should drink a total of 2 to 3 quarts of liquid per day. It may be easier to drink small frequentservings rather than a few la rge ones. Liquids can include: Fruit juices. Strained orange juice or lemonade (no pulp); apple, grape, and cranberry juice; clear fruit drinks Beverages. Sport drinks, sodas, mineral water (plain or flavored), tea, black coffee, liquid gelatin (add twice the recommended amount of water) Soups. Clear broth Desserts. Plain gelatin, popsicles, fruit juice barsChildren under 2 years oldOral rehydration fluids are available at drug stores and most grocery stores. You don't need aprescription. [id number] [employer]. [address] [place] [address]. All rights reserved. This information is not intended as asubstitute for professional medical care. Always follow your healthcare professional's instructions. 10 General Instructions [facility] Emergency Department [address] [place] [address] Phone #: ext- [phone] 05/16/2020 13:54 Patient: LIANE FIGUEROA Sex: F : 1995 Age: 24yYou have been given the following additional information:Bladder Infection, Female (Adult)Hyperemesis GravidarumDiet, Lamar (Adult)Clear Liquid DietNo strenuous activity until better. Rest at home for two days. Do not work for two days.(Electronically signed by DARREN Taylor 05/16/2020 18:28) Name Value Range Interpretation Code Description Data Marilia rce(s) Supporting Document(s) ID Date Data Source [id number] 05/16/2020 02:08:00 PM EDT [facility] 1 Clinical Report - Nurses [facility] Emergency Department [address] [place] [address] Phone #: [phone]- [phone] 05/16/2020 13:54 Patient: LIANE FIGUEROA Sex: F : 1995 Age: 24yTRIAGEArrived by private vehicle. Historian: patient.Acuity: LEVEL 3.Chief Complaint: (nausea,vomiting,dizziness at 9 weeks gestation).Alert. No acute distress.This started yesterday. Onset. (11 AM). ( patient seen last week here in ED, admitted for 5 days.). Nofever. Last oral intake by patient was this morning.Treatment FRATERNITY ADVISER:(attempted meclizine PO FRATERNITY ADVISER.). --14:05/16/20 Veronica Villegas R.N.14:05/16/20. HR: 90. RR: 16. O2 saturation: 96%. Temp: 98 F. Pain level now: 01/20. --14:07 05/16/20Veronica Villegas R.N.14:08 05/16/20. BP: 98/40. MAP: 59. --14:08 05/16/20 Veronica Villegas R.N.Weight: 67.5 kg stated. Height/Length: 66 inches Per Patient. BMI: 24. --14:01 05/16/20 Veronica Villegas R. N.MedicationsMeclizine HCl Oral 25 mg, as needed. --14:04 05/16/20 Veronica Villegas R.N.AllergiesNo Known Drug Allergy. --14:05/16/20 Veronica Villegas R.N.Medication/allergy information source: the patient. --14:05/16/20 Veronica Villegas R.N.ADDITIONAL SURGERIES:Csection.Vertigo. --14:05 05/16/20 Veronica Villegas R.N.HistoryPAST MEDICAL HX: Immunizations: up-to-date. Currently . confirmed with serumtest and sonogram. Risks and / or problems associated with current include hyperemesisgravidarum.SOCIAL HX: Never smoker. No alcohol use or drug use. The patient was offered HIV testin g butdeclshasta and hepatitis C testing but declined. The patient has not traveled outside the [place]Infectious disease exposure: No infectious disease exposure. The patient was not exposed to C-diff,MRSA, VRE or CRE. 2 Clinical Report - Nurses [facility] Emergency Department [address] [place] [address] Phone #: ext- [phone] 05/16/2020 13:54 Patient: LIANE FIGUEROA Sex: F : 1995 Age: 24y SELF HARM ASSESSMENT: Self harm assessment was performed. The patient answered "no" to the question(s) "Have you recently felt down, depressed, or hopeless?", "Do you have thoughts of harming or killing yourself?", "Do you have a plan for harming or killing yourself?", "Have you recently had thoughts about harming or killing others?", "Do you have any dangerous items in your possession?", "Have you noticed less interest or pleasure in doing things?", "Are you here because you tried to hurt yourself?" and "Have you ever tried to hurt yourself before today?". ABUSE ASSESSMENT: No report of abuse. NUTRITIONAL RISK ASSESSMENT: The nutritional risk assessment revealed no deficiencies. FUNCTIONAL ASSESSMENT: Functional assessment: no impairments noted. LEARNING NEEDS ASSESSMENT: The learning needs assessment revealed no barriers. FALL RISK ASSESSMENT: Fall risk assessment completed. Risk factors identified include dizziness. SKIN INTEGRITY ASSESSMENT: Skin integrity risk assessment completed. No skin integrity risk identified. --14:07 05/16/20 Veronica Villegas R.N.PHYSICAL [id number] 05/16/20. Ambulatory to room.GENERAL / NEURO / PSYCH: Alert. Oriented X 4. Appears in no acute distress.HEENT: Mucous membranes are pink.RESPIRATORY: Respirations not labored. Breath sounds within normal limits.CVS: Normal heart rate and rhythm. Capillary refill less than 2 seconds.GI / : Abdomen soft and nontender. Bowel sounds within normal limits.EXTREMITIES: No lower extremity edema.SKIN: Skin is warm and dry. --15:04 05/16/20 Noam Jonas R.N.NURSING PROGRESS NOTES14:47 05/16/2020 Site #1 started via IV in the right antecubital space with an 20g angiocath, with aseptictechnique and good blood return; one attempt. Saline lock flushed with 10 mL saline. --15:02 05/16/20Noam dotson R.N. 14:48 05/16/2020 Reglan (Metoclopramide HCl) IVP 10 mg given over 2 minute(s) via site #1. Allergies verified and confirmed 5 rights. IV patency established. IV site checked: no pain, redness, or swelling. IV flushed thoroughly pre- and post- medication administration. IVP given by RN. Information reviewed with patient including reason for taking this medication, signs of allergic reaction and precautions. Verbalizes understanding. --15:03 05/16/20 Noam Jonas R.N. 14:48 05/16/20. Reassurance given. Reassessment acuity: LEVEL 3. Two patient identifiers checked. Call light placed in reach. Bed placed in lowest position. Brakes of bed on. Patient ready for evaluation- 3 Clinical Report - Nurses [facility] Emergency Department [address] [place] [address] Phone #: ext- [phone] 05/16/2020 13:54 ----- Patient: LIANE FIGUEROA Sex: F : 1995 Age: 24y PA notified. --15:03 05/16/20 Noam Jonas R.N. 14:49 05/16/20. Patient transported to [facility] by wheelchair with lawn and garden technician. --15:04 05/16/20 Noam Jonas R.N. 15:04 05/16/20. [facility] lawn and garden technician. --15:04 05/16/20 Noam Jonas R.N. 15:12 05/16/2020 Started bag #1 1000 mL IV Fluids NS; at 1500 mL/hr over 40 minute(s) via site #1 via IV pump. Allergies verified and confirmed 5 rights. IV patency established. IV site checked: no pain, redness, or swelling. IV flushed thoroughly pre- and post-medication administration. Information reviewed with patient including reason for taking this medication, signs of allergic reaction and precautions. Verbalizes understanding. --15:13 05/16/20 Noam Jonas R.N. 16:19 05/16/20. Reassurance given. Reassessment acuity: LEVEL 3. Reassessment after fluids administered. She reports no complaints and she is calm, resting quietly and sleeping. GI / : Denies nausea. SKIN: Skin is warm and dry. Two patient identifiers checked. Call light placed in reach. Bed placed in lowest position. Brakes of bed on. Patient ready for evaluation- PA notified. --16:29 05/16/20 Noam Jonas R.N. 16:45 05/16/2020 IV Fluids NS via IV site #1 Discontinued: completed. Total amount infused: 1000 mL. IV patency established. IV site checked: no pain, redness, or swelling. IV flushed thoroughly. --16:45 05/16/20 Veronica Villegas R.N.DISPOSITION / DISCHARGE 17:44 05/16/2020 Site #1 removed upon discharge. Catheter intact. Bandage applied. --17:44 05/16/20 Noam Jonas R.N. Condition at departure: improved and stable. The goals identified in the patient's plan of care were met. Fall risk assessment completed. No risk factors identified. No learning barriers present. Discharge instructions provided and reviewed with the patient. Reviewed warnings. Reviewed medication(s) side effects, precautions, dosing and course information. Prescription(s) sent electronically to pharmacy. Treatments reviewed. Reviewed referral to a primary care physician. Work note given. Patient verbalized understanding. Written instructions provided in Armenian. The patient was discharged by the physician learning support assistant. She was discharged home and accompanied by spouse. She left ambulatory and via private vehicle. Spouse driving. --17:45 05/16/20 Noam Jonas R.N. 17:43 05/16/20. BP: 94/68. MAP: 76. HR: 62. RR: 16. O2 saturation: 100%. Temp: 98.5 F. Pain level now: 0/10. --17:45 05/16/20 Noam Jonas R.N. Departure time: 17:45 05/16/2020. --17:45 05/16/20 Noam Jonas R.N. 4 Clinical Report - Nurses [facility] Emergency Department [address] [place] [address] Phone #: ext- [phone] 05/16/2020 13:54 Patient: LIANE FIGUEROA Sex: F : 1995 Age: 24yLocked/Released at 05/16/2020 18:21 by Noam Jonas R.N. Name Value Range Interpretation Code Description Data Marilia rce(s) Supporting Document(s) ID Date Data Source [id number] 05/16/2020 02:08:00 PM EDT [facility] 1 Clinical Report - Physicians/Mid Levels [facility] Emergency Department [address] [place] [address] Phone #: ext- [phone] 05/16/2020 13:54 Patient: LIANE FIGUEROA Sex: F : 1995 Age: 24y Time Seen: 14:35 05/16/2020. Arrived- By private vehicle. Historian- patient. Disposition decision: 17:24 05/16/2020.HISTORY OF PRESENT ILLNESS Chief Complaint: VOMITING. No recent travel. She has had nausea. She has had moderate vomiting. The vomiting has occurred several times. It has been similar to previous episodes. No diarrhea, black stools, bloody stools, abdominal pain or constipation. No flank pain, history of possible bad food exposure, known cont act with a sick individual or change in routine. Has not recently been camping or on antibiotics. This started just prior to arrival 9 weeks gestation and recent admission x 5 days for hyperemisis gravidarum, followed by OB on [place], vomited 6x today, lower abdominal pain. No fever. and is still present. It has been constant. The illness is described as moderate. (24 year old female who is currently 9 weeks is here today with hyperemesis. She was admitted for 5 days last week due to similar symptoms. Pt states she has vomited 6 times today and nothing is making it better.). Similar symptoms previously. Patient has had similar symptoms frequently. Recent medical care: The patient was seen recently in the emergency department and hospitalized.REVIEW OF SYSTEMSNo fever, muscle aches, difficulty with urination, dark urine or missed periods. No abnormal bleeding,irregular periods, headache, dizziness or sore throat. No cough, chest pain, difficulty breathing, excessiveurination or skin rash. No jaundice, back pain, fainting episodes or blurred vision. Currently : 9weeks In 1st trimester. All other systems reviewed and are negative.PAST HISTORYSee nurses notes. Problems: Hyperemesis Gravidarum. Hypokalemia. Dehydration. Discomfort of . OB History. . Psoriasis. Other Disease. Problems. 2 Clinical Report - Physicians/Mid Levels [facility] Emergency Department [address] [place] [address] Phone #: ext- [phone] 05/16/2020 13:54 Patient: LIANE FIGUEROA [facility]#: [id number] Sex: F : 1995 Age: 24y Additional Surgeries: C- sections. Cellulitus. Csection. C- Section. Elbow wash out. Vertigo. Medications: Meclizine HCl Oral 25 mg, as needed. Allergies: No Known Drug Allergy.SOCIAL HISTORYNever smoker. No alcohol use or drug use. No recent travel.ADDITIONAL NOTESThe nursing notes have been reviewed with agreement regarding the chief complaint, HPI, ROS, PMH andpatient medications and allergies.PHYSICAL EXAMVital Signs: 05/16/2020 14:08 BP: 98/40. MAP: 59.05/16/2020 14:02 HR: 90. RR: 16. O2 saturation: 96%. Temp: 98 F. Pain level now: 10. Have beenreviewed as abnormal and appear to be correct. Hypotensive. Mean arterial pressure- normal. Heartrate normal. Respiratory rate normal. Temperature normal. Oxygen saturation normal.Appearance: Alert. Oriented X3. No acute distress.Eyes: Pupils equal, round and reactive to light. Eyes normal inspection.ENT: Ears normal. Nose normal. Dry mucous membranes present. Pharynx normal.Neck: Normal inspection. Neck supple.CVS: Normal heart rate and rhythm. Heart sounds normal. Pulses normal.Respiratory: No respiratory distress. Painless inspiration. Breath sounds normal.Abdomen: Soft and nontender. Bowel sounds normal. No organomegaly. No mass.Back: Normal inspection.Skin: Skin warm and dry. Normal skin color. No rash. Normal skin turgor.Extremities: Extremities exhibit normal ROM. No lower extremity edema.Neuro: Oriented X 3. No motor deficit. No sensory deficit. Reflexes normal.LABS, X-RAYS, AND EKGLaboratory Tests: Laboratory tests have been ordered, with results reviewed and considered in themedical decision making process. Beta-HCG, Quant Serum: (ELBERT: 05/16/2020 15:40) ( MsgRcvd 05/16/2020 16:30) Final results Test Result Flag Units (Reference) HCG QUANT [id number] mIU/mL 3 Clinical Report - Physicians/Mid Levels [facility] Emergency Department [address] [place] [address] Phone #: ext- [phone] 05/16 13:54 Patient: LIANE FIGUEROA Sex: F : 1995 Age: 24y Interpretation: Less than 5 mU/mL: Negative6-10 mU/mL: Borderline (suggest repeat in 48 hours) >10: PositiveApprox HCG range (mU/mL) Weeks post LMP 5.4-708 mU/mL 3-4 Tewud490-17121 mU/mL 5-6 Weeks 4059-873052 mU/mL 7-8 Ubrex83455-105918 mU/mL 9-10 Weeks 20798-72640 mU/mL 12-14 Priom19382-08861 mU/mL 15-16 Weeks 8240-59794 mU/mL 17-18 WeeksCBC w Diff: (ELBERT: 05/16/2020 15:40) ( MsgRcvd 05/16/2020 15:56) Final results Test Result Flag Units (Reference) CBC W/AUTOMATED DIFF COMPLETE BLOOD COUNT WBC 7.8 10/uL (4.2 - 11.0) RBC 5.18 10/uL (4.20 - 5.40) HEMOGLOBIN 13.9 g/dL (12.0 - 16.0) HEMATOCRIT 42.3 % (37.0 - 47.0) MCV 81.7 fL (81.0 - 101) MCH 26.8 L pg (27.0 - 34.0) MCHC 32.9 g/dL (31.0 - 36.0) RDW 15.2 H % (11.5 - 14.5) PLATELETS 247 10/uL (150 - 450) MPV 11.9 H fL (7.4 - 10.4) NEUT 56.6 % (37.0 - 80.0) LYMPH 21.4 L % (25.0 - 40.0) MONO 6.2 % (3.0 - 8.0) EOS 14.4 H % (0.0 - 7.0) BASO 1.0 % (0.0 - 2.5) %IG 0.4 H % (0.0 - 0.0) %NRBC 0.0 % (0.0 - 0.0) #NEUT 4.41 10/uL (2.00 - 6.90) #LYMPH 1.67 10/uL (0.60 - 3.40) #MONO 0.48 10/uL (0.00 - 0.90) #EOS 1.12 H 10/uL (0.00 - 0.70) #BASO 0.08 10/uL (0.00 - 0.20) #IG 0.03 10/uL (0.00 - 0.10) #NRBC 0.00 10/uL (0.00 - 0.00) MANUAL DIFF NOT INDICATED RBC MORPH NOT INDICATEDCMP: (ELBERT: 05/16/2020 15:40) ( MsgRcvd 05/16/2020 16:32) Final results Test Result Flag Units (Reference) COMPREHENSIVE METABOLIC PANEL COMPREHENSIVE METABOLIC PANEL SODIUM 135 mEq/L (134 - 153) POTASSIUM 4.0 mEq/L (3.6 - 5.0) CHLORIDE 98 mEq/L (98 - 107) CO2 21 L MEQ/L (22 - 30) GLUCOSE 99 MG/DL (65 - 110) BUN 10 MG/DL (7 - 21) CREATININE 0.5 L MG/DL (0.7 - 1.5) BUN/CREAT 20 (8 - 27) TOTAL PROTEIN 7.2 G/DL (6.3 - 8.2) ALBUMIN 4.6 G/DL (3.9 - 5.0) GLOBULIN 2.6 GM/DL (2.4 - 3.2) A/G RATIO 1.8 (0.8 - 2.0) CALCIUM 10.2 MG/DL (8.4 - 10.2) TOTAL BILI 1.1 MG/DL (0.2 - 1.3) ALKALINE PHOS 84 U/L (38 - 126) 4 Clinical Report - Physicians/Mid Levels [facility] Emergency Department [address] [place] [address] Phone #: ext- [phone] 05/16/2020 13:54 Patient: LIANE FIGUEROA Sex: F : 1995 Age: 24y SGOT/AST 32 U/L (5 - 40) SGPT/ALT 55 U/L (7 - 56) ANION GAP 16.0 mmol/L (8.0 - 16.0) AGE 24 yrs NON- AA GFR >60 mL/min AFR AMER GFR >60 mL/min Male GFR Interprentation 20-49 yrs >60 mL/min Okmjau69-62 yrs >56 mL/min Normal 60-69 yrs >49 mL/min Normal 70-79yrs>42 mL/min Normal 80 and above >35 mL/min Normal Female GFRInterpretation 20-39 yrs >60 mL/min Normal 40-49 yrs >58 mL/minNormal 50-59 yrs >51 mL/min Normal 60-69 yrs >45 mL/min Artqpi73-30 yrs >39 mL/min Normal 80 and above >32 mL/min NormalLactic Acid: (ELBERT: 05/16/2020 15:40) ( MsgRcvd 05/16/2020 16:04) Final results Test Result Flag Units (Reference) LACTIC ACID 2.2 MMOL/L (0.2 - 2.2)Lipase: (ELBERT: 05/16/2020 15:40) ( MsgRcvd 05/16/2020 16:31) Final results Test Result Flag Units (Reference) LIPASE 21 U/L (13 - 60)Urinalysis: (ELBERT: 05/16/2020 16:40) ( MsgRcvd 05/16/2020 17:13) Final results Test Result Flag Units (Reference) URINALYSIS URINALYSIS SOURCE R COLOR taisha (NORMAL: Yello CLARITY clear (NORMAL: Clear SPEC GRAVITY 1.010 (1.001 - 1.030 pH 7 (5 - 9) GLUCOSE NORM (NORMAL: Negat BILIRUBIN NEG (NORMAL: Negat KETONE 150 A (NORMAL: Negat PROTEIN 15 (NORMAL: Negat NITRITE NEG (NORMAL: Negat BLOOD NEG (NORMAL: Negat LEUK EST 25 (NORMAL: Negat UROBILINOGEN 4 (less than 1.0 MICROSCOPIC See Below WBC 1 - 3 (NORMAL: NONE RBC 0 - 1 (NORMAL: NONE EPITHELIAL MODERATE A (NORMAL: NONE BACTERIA 1+ SMALL (NORMAL: NONE MUCOUS 2+ A (NORMAL: NONEUS OB 1ST TRI UP TO 14 WEEKS: (ELBERT: 05/16/2020 14:43) ( [facility] In ProgressUS OB 1ST TRI UP TO 14 WEEKSReason(s): lower abd pain, vomitingTRANSPORTATION: S IV? IV?(Yes) O2? Oxygen?(No) Ro.Note - Tests: (OB US- SLIUP FHR 172 9w5d edc 12/14/20). 5 Clinical Report - Physicians/Mid Levels [facility] Emergency Department [address] [place] [address] Phone #: ext- [phone] 05/16/2020 13:54 Patient: LIANE FIGUEROA Sex: F : 1995 Age: 24yPROGRESS AND PROCEDURESCourse of Care: 17:32 May 16 2020. Pt feeling improved after IV fluids and reglan in ED, no episodes ofvomiting while in ED, may have mild UTI, will tx as outpt, advised 3 day PCM f/u, and advised returnprecau tions. Disposition: Discharged home in good and improved condition. Discharge decision based on the following: patient's condition is improved; patient is ambulatory; patient is active; patient's exam is improved; minimally abnormal test results; improving condition on repeat evaluation; social support is adequate; transportation is available; follow-up is available; clinical impression is consistent with outpatient treatment.CLINICAL IMPRESSION Acute urinary tract infection with cystitis and hematuria. Not associated with indwelling catheter or obstruction. Moderate hyperemesis gravidarum less than 21 weeks with dehydration.INSTRUCTIONS No strenuous activity until better. Rest at home for two days. Do not work for two days. Drink plenty of fluids for the next 48 hours as needed. Avoid alcohol and NSAIDS. NSAIDS include aspirin, ibuprofen (Advil) and naproxen (Aleve). Avoid fatty, fried/greasy, lactose- containing (such as milk, cheese and ice cream), salty and spicy foods until better. No alcohol. Do not smoke. Warnings: Further evaluation is necessary. It is very important to follow up with a healthcare provider. GENERAL WARNINGS: Return or contact your physician immediately if your condition worsens or changes unexpectedly, if not improving as expected, or if other problems arise. SPECIFICALLY, return if you develop pain in the abdomen, back or shoulder, fever, vomiting, the inability to keep fluids down, blood in vomitus, blood in diarrhea, fainting, lightheadedness or vaginal bleeding. Your Current Medications: Your current home medications have been reviewed. CONTINUE TAKING THE FOLLOWING MEDICATIONS: Meclizine HCl Oral : 25 mg, prn. Prescription Medications: Macrobid 100 mg capsule Take 1 capsule twice a day as directed for 7 days -- for UTI. Dispense 14 capsule. Refills: 0. Substitution permitted. Pharmacy - [facility] - [id number] [facility] ; [place] [address]. . Follow-up: Follow up with your healthcare provider in three days even if well. Call for the next available appointment. 6 Clinical Report - Physicians/Mid Levels [facility] Emergency Department [address] [place] [address] Phone #: ext- [phone] 05/16/2020 13:54 Patient: LIANE FIGU[facility]OA [id number] Sex: F : 1995 Age: 24y Reason for referral: evaluation. Summary of care provided to patient and follow-up provider via paper. Understanding of the discharge instructions verbalized by patient. Expected course of illness, discharge instructions, activity level, prescriptions x1, follow-up appointment and risks and benefits of treatment reviewed with patient and understanding verbalized. Agrees to plan of care.(Electronically signed by DARREN Taylor 05/16/2020 18:28) Name Value Range Interpretation Code Description Data Marilia rce(s) Supporting Document(s) ID Date Data Source [id number] 05/20/2020 11:32:00 AM EDT [facility] Name Value Range Interpretation Code Description Data Marilia rce(s) Supporting Document(s) CULTURE URINE [facility] spital _CULTURE URINE_$$[id number]$$[id number]$$[id number]$$808001$$263310$$988163$$444795$$564254$$993871$$ 026551$$812995$$200753$$593720$$687582$$613877$$165918$$617519$$866987$$350561$$ 281528$$779480$$856358$$516419$$119426$$543333$$777936$$[id number] -- Continued on next page --Patient: CAROLINA Poep Order: [id number] Page 2Culture: CULTURE URINE Status: Final ==== -- Continued on next page --Patient: CAROLINA Pope Order: [id number] Page 2Culture: CULTURE URINE Status: Prelim ===== -- Continued on next page --Patient: CAROLINA Pope Order: [id number] Page 2Culture: CULTURE URINE Status: Prelim =====$$[id number]$$[id number] DATE/TIME: 05/20/2020 10:06Culture: CULTURE URINE Status: FinalUrine Culture,Comprehensive: P1No growth in 36 - 48 hours. Previous result entered on 05/19/2020 14:02 ET No growth after 18-24 hours. Previous result entered on 05/19/2020 05:39 ET Specimen has been received and testing has been initiated.P1 Test performed by: [facility] #: [id number] [address] [place] [address] [id number] [facility] [id number] Director : Hero Lezama MD NPI #:Rig Operator : [email or web address] REF 05/20/[email or web address] REF 05/20/[email or web address] REF ID Date Data Source [id number] 05/16/2020 05:12:00 PM EDT [facility] Name Value Range Interpretation Code Description Data Marilia rce(s) Supporting Document(s) UR[facility]YSIS [facility] el[facility] URINALYSIS SOURCE R [facility] COLOR taisha NORMAL: Yellow [facility] CLARITY clear NORMAL: Clear [facility] Specific gravity of Urine by Test strip 1.010 1.001 - 1.030 [facility] pH 7 5 - 9 [facility] Glucose [Mass/volume] in Urine by Test strip NORM NORMAL: Negat [facility] Bilirubin.total [Presence] in Urine by Test strip NEG NORMAL: Negative [facility] Ketones [Presence] in Urine by Test strip 150 NORMAL: Negative A [facility] Protein [Mass/volume] in Urine by Test strip 15 NORMAL: Negat [facility] Nitrite [Presence] in Urine by Test strip NEG NORMAL: Negative [facility] BLOOD NEG NORMAL: Negative [facility] Leukocyte esterase [Presence] in Urine by Test strip 25 ABIGAIL L: Negative [facility] Urobilinogen [Mass/volume] in Urine by Test strip 4 less jeromy n 1.0 mg/dL [facility] MICROSCOPIC See Below [facility] ital WBC 1 - 3 NORMAL: NONE SEEN [facility] Erythrocytes [#/volume] in Urine by Test strip 0 - 1 NORMAL: NON E SEEN [facility] EPITHELIAL MODERATE NORMAL: NONE SEEN A [facility] Bacteria [Presence] in Urine sediment by Light microscopy 1+ SMALL NORMAL: NONE SEEN [facility] Mucus [Presence] in Urine sediment by Light microscopy 2+ NOR MAL: NONE SEEN A [facility] ID Date Data Source [id number] 05/16/2020 04:32:00 PM EDT [facility] Name Value Range Interpretation Code Description Data Marilia rce(s) Supporting Document(s) COMPREHENSIVE METABOLIC PANEL [facility] COMPREHENSIVE METABOLIC PANEL Sodium [Moles/volume] in Serum or Plasma 135 mEq/L 134 - 153 [facility] Potassium [Moles/volume] in Serum or Plasma 4.0 mEq/L 3.6 - 5.0 [facility] Chloride [Moles/volume] in Serum or Plasma 98 mEq/L 98 - 107 [facility] Carbon dioxide, total [Moles/volume] in Serum or Plasma 21 MEQ/L 22 - 30 L [facility] Glucose [Mass/volume] in Serum or Plasma 99 MG/DL 65 - 110 [facility] BUN 10 MG/DL 7 - 21 [facility] Creatinine [Mass/volume] in Serum or Plasma 0.5 MG/DL 0.7 - 1.5 L [facility] BUN/CREAT 20 8 - 27 [facility] al Protein [Mass/volume] in Serum or Plasma 7.2 G/DL 6.3 - 8.2 [facility] Albumin [Mass/volume] in Serum or Plasma 4.6 G/DL 3.9 - 5.0 [facility] Globulin [Mass/volume] in Serum by calculation 2.6 GM/DL 2.4 - 3.2 [facility] A/G RATIO 1.8 0.8 - 2.0 [facility] Calcium [Mass/volume] in Serum or Plasma 10.2 MG/DL 8.4 - 10.2 [facility] Bilirubin.total [Mass/volume] in Serum or Plasma 1.1 MG/DL 0.2 - 1.3 [facility] Alkaline phosphatase [Enzymatic activity/volume] in Serum or Plasma 84 U/L 38 - 126 [facility] Aspartate aminotransferase [Enzymatic activity/volume] in Serum or Plasma 32 U/L 5 - 40 [facility] Alanine aminotransferase [Enzymatic activity/volume] in Seru m or Plasma 55 U/L 7 - 56 [facility] Anion gap 3 in Serum or Plasma 16.0 mmol/L 8.0 - 16.0 [facility] AGE 24 yrs [facility] al NON-AA GFR >60 mL/min [facility] ital AFR AMER GFR >60 mL/min [facility] sp[facility] Male GFR In terprentation 20-49 yrs >60 mL/min Normal 50-59 yrs >56 mL/min Normal 60-69 yrs >49 mL/min Normal 70-79yrs >42 mL/min Normal 80 and above >35 mL/min Normal Female GFR Interpretation 20-39 yrs >60 mL/min Normal 40-49 yrs >58 mL/min Normal 50-59 yrs >51 mL/min Normal 60-69 yrs >45 mL/min Normal 70-79 yrs >39 mL/min Normal 80 and above >32 mL/min Normal ID Date Data Source [id number] 05/16/2020 04:31:00 PM EDT [facility] Name Value Range Interpretation Code Description Data Marilia rce(s) Supporting Document(s) Lipase [Enzymatic activity/volume] in Serum or Plasma 21 U/L 13 - 60 [facility] ID Date Data Source [id number] 05/16/2020 04:30:00 PM EDT [facility] Name Value Range Interpretation Code Description Data Marilia rce(s) Supporting Document(s) Choriogonadotropin.intact [Units/volume] in Serum or Plasma 746213. 0 mIU/mL [facility] Interpr etation: Less than 5 mU/mL: Negative 6-10 mU/mL: Borderline (suggest repeat in 48 hours) >10: Positive Approx HCG range (mU/mL) Weeks post LMP 5.4-708 mU/mL 3-4 Weeks 217-46032 mU/mL 5-6 Weeks 4059-200209 mU/mL 7-8 Weeks 76234-055168 mU/mL 9-10 Weeks 62357-14094 mU/mL 12-14 Weeks 48836-28563 mU/mL 15-16 Weeks 8240- 36798 mU/mL 17-18 Weeks ID Date Data Source [id number] 05/16/2020 04:04:00 PM EDT [facility] Name Value Range Interpretation Code Description Data Marilia rce(s) Supporting Document(s) Lactate [Moles/volume] in Serum or Plasma 2.2 MMOL/L 0.2 - 2.2 [facility] ID Date Data Source [id number] 05/16/2020 03:56:00 PM EDT [facility] Name Value Range Interpretation Code Description Data Marilia rce(s) Supporting Document(s) CBC W/AUTOMATED DIFF [facility] COMPLETE BLOOD COUNT Leukocytes [#/volume] in Blood by Automated count 7.8 10^3/uL 4.2 - 1 1.0 [facility] Erythrocytes [#/volume] in Blood by Automated count 5.18 10^6/uL 4. 20 - 5.40 [facility] Hemoglobin [Mass/volume] in Blood 13.9 g/dL 12.0 - 16.0 [facility] Hematocrit [Volume Fraction] of Blood by Automated count 42.3 % 3 7.0 - 47.0 [facility] Erythrocyte mean corpuscular volume [Entitic volume] by Auto mated count 81.7 fL 81.0 - 101 [facility] Erythrocyte mean corpuscular hemoglobin [Entitic mass] by Automated count 26.8 pg 27.0 - 34.0 L [facility] Erythrocyte mean corpuscular hemoglobin concentration [Mass/volume] by Automated count 32.9 g/dL 31.0 - 36.0 [facility] Erythrocyte distribution width [Ratio] by Automated count 15.2 % 11.5 - 14.5 H [facility] Platelets [#/volume] in Blood by Automated count 247 10^3/uL 150 - 45 0 [facility] Platelet mean volume [Entitic volume] in Blood by Automated count 11.9 fL 7.4 - 10.4 H [facility] Neutrophils/100 leukocytes in Blood by Automated count 56.6 % 37. 0 - 80.0 [facility] Lymphocytes/100 leukocytes in Blood by Manual count 21.4 % 25.0 - 40.0 L [facility] Monocytes/100 leukocytes in Blood by Automated count 6.2 % 3.0 - 8.0 [facility] Eosinophils/100 leukocytes in Blood by Automated count 14.4 % 0.0 - 7.0 H [facility] Basophils/100 leukocytes in Blood by Automated count 1.0 % 0.0 - 2.5 [facility] %IG 0.4 % 0.0 - 0.0 H [facility] al %NRBC 0.0 % 0.0 - 0.0 [facility] al Neutrophils [#/volume] in Blood by Automated count 4.41 10^3/uL 2.00 - 6.90 [facility] Lymphocytes [#/volume] in Blood by Automated count 1.67 10^3/uL 0.60 - 3.40 [facility] Monocytes [#/volume] in Blood by Automated count 0.48 10^3/uL 0.00 - 0.90 [facility] Eosinophils [#/volume] in Blood by Automated count 1.12 10^3/uL 0.00 - 0.70 H [facility] Basophils [#/volume] in Blood by Automated count 0.08 10^3/uL 0.00 - 0.20 [facility] #IG 0.03 10^3/uL 0.00 - 0.10 [facility] #NRBC 0.00 10^3/uL 0.00 - 0.00 [facility] ospital MANUAL DIFF NOT INDICATED [facility] RBC MORPH NOT INDICATED [facility] spital ID Date Data Source [id number] 05/12/2020 08:40:00 AM EDT [facility] Name Value Range Interpretation Code Description Data Marilia rce(s) Supporting Document(s) Magnesium [Mass/volume] in Serum or Plasma 1.8 MG/DL 1.7 - 2.2 [facility] ID Date Data Source [id number] 05/12/2020 08:40:00 AM EDT [facility] Name Value Range Interpretation Code Description Data Marilia rce(s) Supporting Document(s) BASIC METABOLIC PANEL [facility] BASIC METABOLIC PANEL Sodium [Moles/volume] in Serum or Plasma 136 mEq/L 134 - 153 [facility] Potassium [Moles/volume] in Serum or Plasma 4.1 mEq/L 3.6 - 5.0 [facility] Chloride [Moles/volume] in Serum or Plasma 104 mEq/L 98 - 107 [facility] Carbon dioxide, total [Moles/volume] in Serum or Plasma 20 MEQ/L 22 - 30 L [facility] Glucose [Mass/volume] in Serum or Plasma 93 MG/DL 65 - 110 [facility] BUN <3 MG/DL 7 - 21 L [facility] Creatinine [Mass/volume] in Serum or Plasma 0.4 MG/DL 0.7 - 1.5 L [facility] BUN/CREAT 8 8 - 27 [facility] Calcium [Mass/volume] in Serum or Plasma 8.9 MG/DL 8.4 - 10.2 [facility] Anion gap 3 in Serum or Plasma 12.0 mmol/L 8.0 - 16.0 [facility] AGE 24 yrs [facility] al AFR AMER GFR >60 mL/min [facility] spital NON-AA GFR >60 mL/min [facility] ital Male GFR Inter prentation 20-49 yrs >60 mL/min Normal 50-59 yrs >56 mL/min Normal 60-69 yrs >49 mL/min Normal 70-79yrs >42 mL/min Normal 80 and above >35 mL/min Normal Female GFR Interpretation 20-39 yrs >60 mL/min Normal 40-49 yrs >58 mL/min Normal 50-59 yrs >51 mL/min Normal 60-69 yrs >45 mL/min Normal 70-79 yrs >39 mL/min Normal 80 and above >32 mL/min Normal ID Date Data Source [id number] 05/11/2020 07:01:00 AM EDT [facility] Name Value Range Interpretation Code Description Data Marilia rce(s) Supporting Document(s) BASIC METABOLIC PANEL [facility] BASIC METABOLIC PANEL Sodium [Moles/volume] in Serum or Plasma 137 mEq/L 134 - 153 [facility] Potassium [Moles/volume] in Serum or Plasma 3.8 mEq/L 3.6 - 5.0 [facility] Chloride [Moles/volume] in Serum or Plasma 108 mEq/L 98 - 107 H [facility] Carbon dioxide, total [Moles/volume] in Serum or Plasma 18 MEQ/L 22 - 30 L [facility] Glucose [Mass/volume] in Serum or Plasma 87 MG/DL 65 - 110 [facility] BUN <3 MG/DL 7 - 21 L [facility] al Creatinine [Mass/volume] in Serum or Plasma <0.4 MG/DL 0.7 - 1.5 L [facility] BUN/CREAT 10 8 - 27 [facility] Calcium [Mass/volume] in Serum or Plasma 8.3 MG/DL 8.4 - 10.2 L [facility] Anion gap 3 in Serum or Plasma 11.0 mmol/L 8.0 - 16.0 [facility] AGE 24 yrs [facility] al AFR AMER GFR >60 mL/min [facility] spital NON-AA GFR >60 mL/min [facility] ital Male GFR Inter prentation 20-49 yrs >60 mL/min Normal 50-59 yrs >56 mL/min Normal 60-69 yrs >49 mL/min Normal 70-79yrs >42 mL/min Normal 80 and above >35 mL/min Normal Female GFR Interpretation 20-39 yrs >60 mL/min Normal 40-49 yrs >58 mL/min Normal 50-59 yrs >51 mL/min Normal 60-69 yrs >45 mL/min Normal 70-79 yrs >39 mL/min Normal 80 and above >32 mL/min Normal ID Date Data Source [id number] 05/11/2020 06:58:00 AM EDT [facility] Name Value Range Interpretation Code Description Data Marilia rce(s) Supporting Document(s) Magnesium [Mass/volume] in Serum or Plasma 1.8 MG/DL 1.7 - 2.2 [facility] ID Date Data Source [id number] 05/10/2020 07:03:00 AM EDT [facility] Name Value Range Interpretation Code Description Data Marilia rce(s) Supporting Document(s) CBC W/AUTOMATED DIFF [facility] COMPLETE BLOOD COUNT Leukocytes [#/volume] in Blood by Automated count 5.8 10^3/uL 4.2 - 1 1.0 [facility] Erythrocytes [#/volume] in Blood by Automated count 4.15 10^6/uL 4. 20 - 5.40 L [facility] Hemoglobin [Mass/volume] in Blood 11.0 g/dL 12.0 - 16.0 L [facility] Hematocrit [Volume Fraction] of Blood by Automated count 33.4 % 3 7.0 - 47.0 L [facility] Erythrocyte mean corpuscular volume [Entitic volume] by Auto mated count 80.5 fL 81.0 - 101 L [facility] Erythrocyte mean corpuscular hemoglobin [Entitic mass] by Automated count 26.5 pg 27.0 - 34.0 L [facility] Erythrocyte mean corpuscular hemoglobin concentration [Mass/volume] by Automated count 32.9 g/dL 31.0 - 36.0 [facility] Erythrocyte distribution width [Ratio] by Automated count 15.2 % 11.5 - 14.5 H [facility] Platelets [#/volume] in Blood by Automated count 195 10^3/uL 150 - 45 0 [facility] Platelet mean volume [Entitic volume] in Blood by Automated count 11.7 fL 7.4 - 10.4 H [facility] Neutrophils/100 leukocytes in Blood by Automated count 60.2 % 37. 0 - 80.0 [facility] Lymphocytes/100 leukocytes in Blood by Manual count 28.1 % 25.0 - 40.0 [facility] Monocytes/100 leukocytes in Blood by Automated count 7.0 % 3.0 - 8.0 [facility] Eosinophils/100 leukocytes in Blood by Automated count 3.9 % 0.0 - 7.0 [facility] Basophils/100 leukocytes in Blood by Automated count 0.5 % 0.0 - 2.5 [facility] %IG 0.3 % 0.0 - 0.0 H [facility] Hospit al %NRBC 0.0 % 0.0 - 0.0 [facility] al Neutrophils [#/volume] in Blood by Automated count 3.51 10^3/uL 2.00 - 6.90 [facility] Lymphocytes [#/volume] in Blood by Automated count 1.64 10^3/uL 0.60 - 3.40 [facility] Monocytes [#/volume] in Blood by Automated count 0.41 10^3/uL 0.00 - 0.90 [facility] Eosinophils [#/volume] in Blood by Automated count 0.23 10^3/uL 0.00 - 0.70 [facility] Basophils [#/volume] in Blood by Automated count 0.03 10^3/uL 0.00 - 0.20 [facility] #IG 0.02 10^3/uL 0.00 - 0.10 [facility] #NRBC 0.00 10^3/uL 0.00 - 0.00 [facility] MANUAL DIFF NOT INDICATED [facility] RBC MORPH NOT INDICATED [facility] spital ID Date Data Source [id number] 05/10/2020 07:00:00 AM EDT [facility] Name Value Range Interpretation Code Description Data Marilia rce(s) Supporting Document(s) Magnesium [Mass/volume] in Serum or Plasma 1.5 MG/DL 1.7 - 2.2 L [facility] ID Date Data Source [id number] 05/10/2020 07:00:00 AM EDT [facility] Name Value Range Interpretation Code Description Data Marilia rce(s) Supporting Document(s) COMPREHENSIVE METABOLIC PANEL [facility] COMPREHENSIVE METABOLIC PANEL Sodium [Moles/volume] in Serum or Plasma 140 mEq/L 134 - 153 [facility] Potassium [Moles/volume] in Serum or Plasma 3.0 mEq/L 3.6 - 5.0 L [facility] Chloride [Moles/volume] in Serum or Plasma 109 mEq/L 98 - 107 H [facility] Carbon dioxide, total [Moles/volume] in Serum or Plasma 20 MEQ/L 22 - 30 L [facility] Glucose [Mass/volume] in Serum or Plasma 95 MG/DL 65 - 110 [facility] BUN <2 MG/DL 7 - 21 L [facility] al Creatinine [Mass/volume] in Serum or Plasma <0.4 MG/DL 0.7 - 1.5 L [facility] BUN/CREAT 3 8 - 27 L [facility] Protein [Mass/volume] in Serum or Plasma 5.6 G/DL 6.3 - 8.2 L [facility] Albumin [Mass/volume] in Serum or Plasma 3.6 G/DL 3.9 - 5.0 L [facility] Globulin [Mass/volume] in Serum by calculation 2.0 GM/DL 2.4 - 3.2 L [facility] A/G RATIO 1.8 0.8 - 2.0 [facility] Calcium [Mass/volume] in Serum or Plasma 8.3 MG/DL 8.4 - 10.2 L [facility] Bilirubin.total [Mass/volume] in Serum or Plasma 0.8 MG/DL 0.2 - 1.3 [facility] Alkaline phosphatase [Enzymatic activity/volume] in Serum or Plasma 57 U/L 38 - 126 [facility] Aspartate aminotransferase [Enzymatic activity/volume] in Serum or Plasma 17 U/L 5 - 40 [facility] Alanine aminotransferase [Enzymatic activity/volume] in Seru m or Plasma 31 U/L 7 - 56 [facility] Anion gap 3 in Serum or Plasma 11.0 mmol/L 8.0 - 16.0 [facility] AGE 24 yrs [facility] al NON-AA GFR >60 mL/min [facility] ital AFR AMER GFR >60 mL/min [facility] Male GFR In terprentation 20-49 yrs >60 mL/min Normal 50-59 yrs >56 mL/min Normal 60-69 yrs >49 mL/min Normal 70-79yrs >42 mL/min Normal 80 and above >35 mL/min Normal Female GFR Interpretation 20-39 yrs >60 mL/min Normal 40-49 yrs >58 mL/min Normal 50-59 yrs >51 mL/min Normal 60-69 yrs >45 mL/min Normal 70-79 yrs >39 mL/min Normal 80 and above >32 mL/min Normal ID Date Data Source [id number] 05/09/2020 07:12:00 PM EDT [facility] Name Value Range Interpretation Code Description Data Marilia rce(s) Supporting Document(s) URINALYSIS [facility] URINALYSIS SOURCE R [facility] COLOR yellow NORMAL: Yellow [facility] ospital CLARITY clear NORMAL: Clear [facility] spital Specific gravity of Urine by Test strip 1.010 1.001 - 1.030 [facility] pH 6 5 - 9 [facility] al Glucose [Mass/volume] in Urine by Test strip NORM NORMAL: Negat [facility] Bilirubin.total [Presence] in Urine by Test strip NEG NORMAL: Negative [facility] Ketones [Presence] in Urine by Test strip NEG NORMAL: Negative [facility] Protein [Mass/volume] in Urine by Test strip [facility] Nitrite [Presence] in Urine by Test strip NEG NORMAL: Negative [facility] BLOOD NEG NORMAL: Negative [facility] Leukocyte esterase [Presence] in Urine by Test strip NEG ABIGAIL L: Negative [facility] Urobilinogen [Mass/volume] in Urine by Test strip NOR less jeromy n 1.0 mg/dL [facility] MICROSCOPIC Not Indicate [facility] ID Date Data Source [id number] 05/09/2020 08:53:00 AM EDT [facility] [address] [place] [address] PHONE: [phone] FAX: [phone] Name .................. : CAROLINA Pope Acct Number.................. : [id number] ROOM. ................. : 109-1 MR Number ................... : [id number] Stay type ............. : O/P Discharge Date......... ... : Admit Date ......... : 05/08/20 Admit Phys .................... : SAMANTHA OG Date of ....... : 1995 Family Phys ................... : UNKNOWN Phone .................. : [phone] Age ................................ : 24 Film# .................. .:[id number] Sex ................................. : F Unsigned transcriptions are preliminary reports and do not represent a medical or legal document OB 1ST TRI UP TO 14 WEEKS [id number] COMPLETE:05/08/20 15:34 [facility] [id number] Reason(s): left pelvic pain, N/V, EDC 3-5-21, 8 weeks FIRST TRIMESTER OB ULTRASOUND: INDICATION: Left pelvic pain. FINDINGS: A single viable intrauterine gestation is identified with a crown rump length of 18 mm, which corresponds to 8 weeks 2 days plus/minus 1 week. EDC is 12/16/20. heart rate is 183 beats per minute. The uterus measures 7.6 x 7.2 x 5.7 cm. The right ovary measures 2.2 x 2.7 x 2.1 cm. The corpus luteum is identified, measuring 1.5 cm. The left ovary measures 2.2 x 1.9 x 1.7 cm. No free fluid or torsion is identified. IMPRESSION: Single live intrauterine gestation at 8 weeks 2 days plus/minus 1 we ek. EDC is 12/16/20. heart rate is 183 beats per minute. Examination dictated by DARREN Porras. Examination was reviewed with Camelia Hinojosa MD, radiologist at the time of this dictation. _ Electronically Reviewed and Signed By CAMELIA HINOJOSA MD , 05/09/20 08:53, [facility] Transcribe Initials: DZ , Transcribe Date: 05/08/20 18:17, Dictation Date: Page 1 of 2 [place] [address] PHONE: [phone] FAX: [phone] Name .................. : CAROLINA Pope Acct Number.................. : [id number] ROOM. ................. : 109-1 MR Number ................... : [id number] Stay type ............. : O/P Discharge Date......... ... : Admit Date ......... : 05/08/20 Admit Phys .................... : SAMANTHA OG Date of ....... : 1995 Family Phys ................... : UNKNOWN Phone .................. : [phone] Age ................................ : 24 Film# .................. .:[id number] Sex ................................. : F Unsigned transcriptions are preliminary reports and do not represent a medical or legal document OB 1ST TRI UP TO 14 WEEKS [id number] COMPLETE:05/08/20 15:34 [facility] [id number] Reason(s): left pelvic pain, N/V, EDC 3-5-21, 8 weeks Copy for: EMERGENCY DEPT via modem Copy for: 710 MED REC Page 2 of 2 Name Value Range Interpretation Code Description Data Marilia rce(s) Supporting Document(s) ID Date Data Source [id number] 05/09/2020 07:08:00 AM EDT [facility] Name Value Range Interpretation Code Description Data Marilia rce(s) Supporting Document(s) COMPREHENSIVE METABOLIC PANEL [facility] COMPREHENSIVE METABOLIC PANEL Sodium [Moles/volume] in Serum or Plasma 135 mEq/L 134 - 153 [facility] Potassium [Moles/volume] in Serum or Plasma 3.2 mEq/L 3.6 - 5.0 L [facility] Chloride [Moles/volume] in Serum or Plasma 109 mEq/L 98 - 107 H [facility] Carbon dioxide, total [Moles/volume] in Serum or Plasma 17 MEQ/L 22 - 30 L [facility] Glucose [Mass/volume] in Serum or Plasma 139 MG/DL 65 - 110 H [facility] BUN <2 MG/DL 7 - 21 [facility] Creatinine [Mass/volume] in Serum or Plasma 0.4 MG/DL 0.7 - 1.5 L [facility] BUN/CREAT 5 8 - 27 L [facility] Protein [Mass/volume] in Serum or Plasma 5.5 G/DL 6.3 - 8.2 L [facility] Albumin [Mass/volume] in Serum or Plasma 3.6 G/DL 3.9 - 5.0 L [facility] Globulin [Mass/volume] in Serum by calculation 1.9 GM/DL 2.4 - 3.2 L [facility] A/G RATIO 1.9 0.8 - 2.0 [facility] al Calcium [Mass/volume] in Serum or Plasma 8.1 MG/DL 8.4 - 10.2 L [facility] Bilirubin.total [Mass/volume] in Serum or Plasma 1.7 MG/DL 0.2 - 1.3 H [facility] Alkaline phosphatase [Enzymatic activity/volume] in Serum or Plasma 54 U/L 38 - 126 [facility] Aspartate aminotransferase [Enzymatic activity/volume] in Serum or Plasma 17 U/L 5 - 40 [facility] Alanine aminotransferase [Enzymatic activity/volume] in Seru m or Plasma 31 U/L 7 - 56 [facility] Anion gap 3 in Serum or Plasma 9.0 mmol/L 8.0 - 16.0 [facility] AGE 24 yrs [facility] al NON-AA GFR >60 mL/min [facility] ital AFR AMER GFR >60 mL/min [facility] Male GFR In terprentation 20-49 yrs >60 mL/min Normal 50-59 yrs >56 mL/min Normal 60-69 yrs >49 mL/min Normal 70-79yrs >42 mL/min Normal 80 and above >35 mL/min Normal Female GFR Interpretation 20-39 yrs >60 mL/min Normal 40-49 yrs >58 mL/min Normal 50-59 yrs >51 mL/min Normal 60-69 yrs >45 mL/min Normal 70-79 yrs >39 mL/min Normal 80 and above >32 mL/min Normal ID Date Data Source [id number] 05/09/2020 07:08:00 AM EDT [facility] Name Value Range Interpretation Code Description Data Marilia rce(s) Supporting Document(s) Magnesium [Mass/volume] in Serum or Plasma 1.6 MG/DL 1.7 - 2.2 L [facility] ID Date Data Source [id number] 05/09/2020 06:46:00 AM T [facility] Name Value Range Interpretation Code Description Data Marilia rce(s) Supporting Document(s) CBC W/AUTOMATED DIFF [facility] COMPLETE BLOOD COUNT Leukocytes [#/volume] in Blood by Automated count 5.8 10^3/uL 4.2 - 1 1.0 [facility] Erythrocytes [#/volume] in Blood by Automated count 4.15 10^6/uL 4. 20 - 5.40 L [facility] Hemoglobin [Mass/volume] in Blood 11.0 g/dL 12.0 - 16.0 L [facility] Hematocrit [Volume Fraction] of Blood by Automated count 33.8 % 3 7.0 - 47.0 L [facility] Erythrocyte mean corpuscular volume [Entitic volume] by Auto mated count 81.4 fL 81.0 - 101 [facility] Erythrocyte mean corpuscular hemoglobin [Entitic mass] by Automated count 26.5 pg 27.0 - 34.0 L [facility] Erythrocyte mean corpuscular hemoglobin concentration [Mass/volume] by Automated count 32.5 g/dL 31.0 - 36.0 [facility] Erythrocyte distribution width [Ratio] by Automated count 15.1 % 11.5 - 14.5 H [facility] Platelets [#/volume] in Blood by Automated count 196 10^3/uL 150 - 45 0 [facility] Platelet mean volume [Entitic volume] in Blood by Automated count 11.4 fL 7.4 - 10.4 H [facility] Neutrophils/100 leukocytes in Blood by Automated count 68.7 % 37. 0 - 80.0 [facility] Lymphocytes/100 leukocytes in Blood by Manual count 21.2 % 25.0 - 40.0 L [facility] Monocytes/100 leukocytes in Blood by Automated count 7.3 % 3.0 - 8.0 [facility] Eosinophils/100 leukocytes in Blood by Automated count 1.9 % 0.0 - 7.0 [facility] Basophils/100 leukocytes in Blood by Automated count 0.7 % 0.0 - 2.5 [facility] %IG 0.2 % 0.0 - 0.0 H [facility] %NRBC 0.0 % 0.0 - 0.0 [facility] al Neutrophils [#/volume] in Blood by Automated count 3.98 10^3/uL 2.00 - 6.90 [facility] Lymphocytes [#/volume] in Blood by Automated count 1.23 10^3/uL 0.60 - 3.40 [facility] Monocytes [#/volume] in Blood by Automated count 0.42 10^3/uL 0.00 - 0.90 [facility] Eosinophils [#/volume] in Blood by Automated count 0.11 10^3/uL 0.00 - 0.70 [facility] Basophils [#/volume] in Blood by Automated count 0.04 10^3/uL 0.00 - 0.20 [facility] #IG 0.01 10^3/uL 0.00 - 0.10 [facility] #NRBC 0.00 10^3/uL 0.00 - 0.00 [facility] MANUAL DIFF NOT INDICATED [facility] RBC MORPH NOT INDICATED [facility] spital ID Date Data Source [id number] 05/08/2020 01:45:00 PM EDT [facility] 1 OrderSheet [facility] Emergency Department [address] [place] [address] Phone #: ext- [phone] 05/08/2020 13:45 Patient: LIANE FIGUREOA Sex: F : 1995 Age: 24yWEIGHT:69.8 kg (S) HEIGHT:66 inches (S) BMI:24.8ALLERGIES: NoneCHIEF COMPLAINT: vomitingDIAGNOSIS: Hyperemesis gravidarumLAB ORDERSOrder Description Priority Entered Acknowledged InitialedCBC w Diff STAT 14:05/08/2020 14:25 Tracey Arzola Riccardo R.N. M.D.;CMP STAT 14:05/08/2020 14:25 Tracey Arzola Riccardo R.N. M.D.;Lipase STAT 14:05/08/2020 14:25 Tracey Arzola Riccardo R.N. M.D.;Urinalysis (Clean STAT 14:05/08/2020 15:50 Curry Arzola Riccardo R.N. MHerminia Becker;HCG Serum Quant STAT 14:24 05/08/2020 14:25 Tracey Arzola Riccardo R.N. MPaige;DIAGNOSTIC STUDY ORDERSOrder Description Priority Entered Acknowledged InitialedUS OB 1ST TRI UP STAT 14:25 05/08/2020 14:29 Meenakshi Arzola 14 WEEKS Tati Milner R.NHerminia(Oxygen?(No)) M.D.;(IV?(Yes)) NOTES: do TV if needed Reason for Study: left pelvic pain, N/V, EDC 3-5-21, 8 weeks MEDICATION/IV/DRIP/FLUID ORDERSOrder Description Priority Entered Acknowledged InitialedNS IV 1000 mL 14:25 05/08/2020 14:29 Raji Arzola: : Bolus 1000 Casperrin, Tati R.N.mL (X1) M.D.;Phenergan 25 mg 14:25 05/08/2020 14:30 Tracey Arzola 2 OrderSheet [facility] Emergency Department [address] [place] [address] Phone #: ext- [phone] 05/08/2020 13:45 ---- Patient: LIANE FIGUEROA Sex: F : 1995 Age: 24yin 50 mL NS, give Pop Milnercardo R.NHerminiawide open: 25 mg M.D.;(NOW x1, HIGHALERTMEDICATION)IV NS 1000 mL 15:49 05/08/2020 15:49 Raji Arzola : Bolus 1000 Tracey Arzola.N.; R.N.mL (X1) Verbal order per; Jonh Tati M.DHerminiaReglan 10 mg IVP 16:04 05/08/2020 16:11 Tracey ArzolaX1 dose: 10 mg Casperrin, Tati R.N.(NOW x1) M.D.;IV NS 1000 mL 16:33 05/08/2020 16:33 Tracey ArzolaBolus : Bolus 1000 Tracey Arzola R.N.; R.N.mL (X1) Verbal order per; Tati Milner M.D.Zofran 4 mg IVP X 1 16:36 05/08/2020 16:47 Cammy Arzolaose: 4 mg (NOW Tati Milner R.N.x1) KandyDHerminia;Pepcid IVPB 20 16:36 05/08/2020 16:47 Tracey Arzolamg/50mL (NOW x1, Tati Milner R.N.Infuse over 30 M.D.;minutes.)D5NS IV : 150 16:40 05/08/2020 17:10 Karie Arzola/hr Tati Milner R.N., M.D.;GENERAL ORDERSOrder Description Priority Entered Acknowledged InitialedNPO 14:24 05/08/2020 14:25 Tracey Arzola Riccardo R.N. M.D.;Saline Lock 14:24 05/08/2020 14:25 Tracey Arzola Riccardo R.N. M.D.;[Electronically signed by Tracey Arzola R.N. (18:04 05/08/2020)][Electronically signed by Tati Milner M.D. (18:24 05/08/2020)][Electronically locked by Tracey Arzola R.N. (18:04 05/08/2020)] Name Value Range Interpretation Code Description Data Marilia rce(s) Supporting Document(s) ID Date Data Source [id number] 05/08/2020 01:45:00 PM EDT [facility] 1 Medication Reconciliation Report [facility] Emergency Department [address] [place] [address] Phone #: ext- [phone] 05/08/2020 13:45 Patient: LIANE FIGUEROA Sex: F : 1995 Age: 24yWeight: 69.8 kgHeight/Length: 66 in.BMI: 24.8ALLERGIES: NoneThe patient's Home Medications are listed below:THE FOLLOWING MEDICATIONS NEED TO BE RECONCILED: Phenergan (Promethazine) Rectal, prn Unisom Sleepgels Oral, prn Vitamin B-6 Oral, prn Zofran ODT Oral, prnThe source(s) of the original Home Medication information:patientThe following Medications were given to the patient in the Emergency Department:IV NS IV Fluids bolus 1000 mL over 1 hour(s), administered: 05/08/2020 2:29:00 PMPhenergan [IVPB] IVPB bolus 0, then 25 mg 200 mL/hr, administered: 05/08/2020 2:30:00 PMIV NS IV Fluids bolus 1000 mL over 1 hour(s), administered: 05/08/2020 3:49:00 PMReglan [IVP] IVP 10 mg, administered: 05/08/2020 4:11:00 PMIV NS IV Fluids bolus 1000 mL over 1 hour(s), administered: 05/08/2020 4:33:00 PMZofran [IVP] IVP 4 mg, administered: 05/08/2020 4:47:00 PMPepcid [IVPB] IVPB bolus 0, then 20 mg 100 mL/hr, administered: 05/08/2020 4:47:00 PMD5NS IV IV Fluids bolus 0, then 150 mL/hr, administered: 05/08/2020 5:10:00 PM 2 Medication Reconciliation Report [facility] Emergency Department [address] [place] [address] Phone #: ext- [phone] 05/08/2020 13:45 Patient: LIANE FIGUEROA Sex: F : 1995 Age: 24yThe following Medications were prescribed to the patient:None. Name Value Range Interpretation Code Description Data Marilia rce(s) Supporting Document(s) ID Date Data Source [id number] 05/08/2020 01:45:00 PM EDT [facility] 1 Medication Administration Record [facility] Emergency Department [address] [place] [address] Phone #: ext- [phone] 05/08/2020 13:45 Patient: LIANE FIGUEROA Sex: F : 1995 Age: 24yWeight: 69.8 kgHeight/Length: 66 inBMI: 24.8ALLERGIES: None Date/Time Medication Administered Medication OrderedStart IV NS NS IV 1000 mL Bolus: : Bolus [id number] 05/08/2020 Dose: IV Fluids mL (X1)Tracey Arzola RHerminiaNHerminia Bolus: 1000 mL over 1 hour(s)---- Dispensed: 1000 mL bagStop Site: #1 right AC15:48 05/08/2020Tracey Arzola RHerminiaNHerminiaStart PHENERGAN [IVPB] Phenergan 25 mg in 50 mL NS,14:30 05/08/2020 Dose: 25 mg IVPB give wide open: 25 mg (NOW x1,Tracey Arzola RHerminiaNHerminia Rate: 200 mL/hr over 15 minute(s) HIGH ALERT MEDICATION)---- Dispensed: 50 mL bagStop Site: #1 right AC15:48 05/08/2020Tracey Arzola RHerminiaNHerminiaStart IV NS IV NS 1000 mL Bolus : Bolus [id number]:49 05/08/2020 Dose: IV Fluids mL (X1)Tracey Arzola RHerminiaNHerminia Bolus: 1000 mL over 1 hour(s)---- Dispensed: 1000 mL bagStop Site: #1 right AC16:33 05/08/2020Tracey Arzola RAnastacioGiven REGLAN [IVP] (METOCLOPRAMIDE Reglan 10 mg IVP X1 dose: 10 mg16:11 2019 HCL) (NOW x1)Tracey Arzola R.N. Dose: 10 mg IVP Site: #1 right ACStart IV NS IV NS 1000 mL Bolus : Bolus [id number]:33 05/08/2020 Dose: IV Fluids mL (X1)Tracey Arzola R.N. Bolus: 1000 mL over 1 hour(s)---- Dispensed: 1000 mL bagStop Site: #1 right AC17:09 05/08/2020Tracey Arzola R.N.Given ZOFRAN [IVP] (ONDANSETRON HCL) Zofran 4 mg IVP X 1 dose: 4 mg16:47 05/08/2020 Dose: 4 mg IVP (NOW x1)Tracey Arzola R.N. Site: #1 right ACStart PEPCID [IVPB] Pepcid IVPB 20 mg/50mL (NOW16:47 05/08/2020 Dose: 20 mg IVPB x1, Infuse over 30 minutes.)Tracey Arzola R.N. Rate: 100 mL/hr over 30 minute(s)---- Dispensed: 50 mL bagStop Site: #1 right AC17:10 05/08/2020Tracey Arzola R.N.Start D5NS IV D5NS IV : 150 mL/hr17:05/08/2020 Dose: IV Fluids 2 Medication Administration Record [facility] Emergency Department [address] [place] [address] Phone #: ext- [phone] 05/08/2020 13:45 Patient: LIANE FIGUEROA Sex: F : 1995 Age: 24Tracey Jett R.N. Rate: 150 mL/hr over 4 hour(s)---- Dispensed: 1000 mL bagContinued Upon Disposition Site: #1 right AC17:45 05/08/2020Tracey Arzola R.N. Name Value Range Interpretation Code Description Data Marilia rce(s) Supporting Document(s) ID Date Data Source [id number] 05/08/2020 01:45:00 PM EDT [facility] 1 General Instructions [facility] Emergency Department [address] [place] [address] Phone #: ext- [phone] 05/08/2020 13:45 Patient: LIANE FIGUEROA Sex: F : 1995 Age: 24ySevere hyperemesis gravidarum less than 21 weeks with dehydration ( 8w2d).(Electronically signed by Tati Milner M.D. 05/08/2020 18:24) Name Value Range Interpretation Code Description Data [facility](s) Supporting Document(s) ID Date Data Source [id number] 05/08/2020 01:45:00 PM EDT [facility] 1 Clinical Report - Nurses [facility] Emergency Department [address] [place] [address] Phone #: ext- [phone] 05/08/2020 13:45 Patient: LIANE FIGUEROA Sex: F : 1995 Age: 24yTRIAGEArrived by EMS. Historian: patient. Unaccompanied.Triage time: late entry - 14:11 05/08/2020. Acuity: LEVEL 4.Chief Complaint: (vomiting).Alert. No acute distress.This started today. ( Pt states she is 8.5 weeks and has a history of hyperemesis; Pt hasbeen seen in this ER mutliple times. Pt states she has been vomiting today, 7-8 times today, and recentlyvomited a small amount of blood, pt believes from throat irritation. Pt does c/o headache, Right sided pelvicpain and dizziness).Treatment FRATERNITY ADVISER:(Zofran last dose at 0900 and vomited after;).SEPSIS SCREEN: SIRS Screen negative. (14:20 05/08/2020). --14:20 05/08/20 Erica Perkins R.N.14:13 05/08/20. BP: 130/77. MAP: 94. HR: 71. RR: 18. O2 saturation: 98% on room air. Temp: 97.8 F.Pain level now: 04/21. --14:20 05/08/20 Erica Perkins R.N.Weight: 69.8 kg stated. Height/Length: 66 inches Per Patient. BMI: 24.8. --14:10 05/08/20 Erica Perkins R.N.MedicationsPhenergan (Promethazine) Rectal, as needed. --14:15 05/08/20 Erica Perkins R.N. Zofran ODT Oral, as needed. --14:15 05/08/20 Erica Perkins R.N. Vitamin B-6 Oral, as needed. --14:15 05/08/20 Erica Perkins R.N. Unisom Sleepgels Oral, as needed. --14:15 05/08/20 Erica Perkins R.N.AllergiesNone. --14:15 05/08/20 Erica Perkins R.N.Medication/allergy information source: the patient. --14:20 05/08/20 Erica Perkins R.N.ADDITIONAL SURGERIES:C- sections.Cellulitus. (X2). --14:16 05/08/20 Erica Perkins R.N.HistoryPAST MEDICAL HX: Immunizations: up-to-date. Last normal menstrual period- End of february/beginning of Clinical Report - Nurses [facility] Emergency Department [address] [place] [address] Phone #: [phone] ext- [phone] 05/08/2020 13:45 Patient: LIANE FIGUEROA Sex: F : 1995 Age: 24y March 2020. Confirmed . In 1st trimester. confirmed with sonogram. Has had care by arc cutter. OB history: G 4; P 2; Ab 1. SOCIAL HX: Former smoker. No alcohol use or drug use. She was offered HIV testing but declined. Patient education was provided. She was offered hepatitis C testing but declined. Patient education was provided. ( COVID screen negative). She has not traveled outside the [place] Infectious disease exposure: No infectious disease exposure. Patient is not a known carrier of tuberculosis, hepatitis, HIV, MRSA or VRE. Patient is not a known carrier of CRE. SELF HARM ASSESSMENT: Self harm assessment was performed. The patient answered "no" to the question(s) "Do you have thoughts of harming or killing yourself?" and "Do you have a plan for harming or killing yourself?". ABUSE ASSESSMENT: Abuse assessment. The patient had positive responses to the question(s) "Do you feel safe in your home?". Abuse denied. No suspicion of abuse. No report of abuse. NUTRITIONAL RISK ASSESSMENT: The nutritional risk assessment revealed no deficiencies. FUNCTIONAL ASSESSMENT: Functional assessment: no impairments noted. LEARNING NEEDS ASSESSMENT: The learning needs assessment revealed no barriers. FALL RISK ASSESSMENT: Fall risk assessment completed. No risk factors identified. SKIN INTEGRITY ASSESSMENT: Skin integrity risk assessment completed. No skin integrity risk identified. --14:20 05/08/20 Erica Perkins R.N. Interventions Identification band on patient. --14:20 05/08/20 Erica Perkins R.N.PHYSICAL ASSESSMENTGENERAL / NEURO / PSYCH: Alert. Oriented X 4.RESPIRATORY: Respirations not labored. Breath sounds within normal limits.CVS: Normal heart rate and rhythm. Capillary refill less than 2 seconds.GI / : Emesis noted. Abdomen soft. Abdominal tenderness in the left upper quadrant. Bowel soundswithin normal limits.EXTREMITIES: No lower extremity edema.SKIN: Skin is warm and dry. --14:24 05/08/20 Tracey Arzola R.N.NURSING PROGRESS NOTESNIBP monitor and pulse oximeter placed on patient; monitor alarms on. Patient gowned. Reassurancegiven. Three patient identifiers checked. Call light placed in reach. Side rails up x 2. Bed placed inlowest position. Brakes of bed on. Patient ready for evaluation- ED physician and PA notified. --14: Erica Perkins R.N. 3 Clinical Report - Nurses [facility] Emergency Department [address] [place] [address] Phone #: ext- [phone] 05/08/2020 13:45 Patient: LIANE FIGUEROA Sex: F : 1995 Age: 24y14:25 05/08/2020 Site #1 started via IV in the right antecubital space with an 20g angiocath, with aseptictechnique and good blood return; one attempt. --14:05/08/20 Tracey Arzola R.N.14:29 05/08/2020 Started bag #1 1000 mL IV Fluids IV NS; bolus of 1000 mL over 1 hour(s) via site #1 viaIV pump. Allergies verified and confirmed 5 rights. IV patency established. IV site checked: no pain,redness, or swelling. IV flushed thoroughly pre- and post-medication administration. Information reviewedwith patient including reason for taking this medication, signs of allergic reaction and precautions.Verbalizes understanding. --14:29 05/08/20 Tracey Arzola R.N.14:30 05/08/2020 Started 25 mg of Phenergan IVPB in bag #1 50 mL; at 200 mL/hr over 15 minute(s) viasite #1. via IV pump. Allergies verified and confirmed 5 rights. IV patency established. IV site checked: nopain, redness, or swelling. IV flushed thoroughly pre- and post-medication administration. Informationreviewed with patient including reason for taking this medication, signs of allergic reaction and precautions.Verbalizes understanding. --14:30 05/08/20 Tracey Arzola R.N.( pt notified of need for urine sample pt states she cannot void at present). --14:31 05/08/20 Tracey Arzola R.N.Patient transported to sonogram by wheelchair with tech. --14:54 05/08/20 Tracey Arzola R.N.14:50 05/08/20. BP: 130/74. MAP: 92. HR: 85. RR: 18. O2 saturation: 99%. --14:56 05/08/20 Tracey Arzola R.N.Patient returned from radiology by wheelchair with tech. --15:31 05/08/20 Tracey Arzola R.N.( pt states she does not feel any better). --15:32 05/08/20 Tracey Arzola R.N.15:32 05/08/20. BP: 127/68. MAP: 87. HR: 62. RR: 18. O2 saturation: 100%. --15:32 05/08/20 Tracey Arzola R.N.15:48 05/08/2020 IV Fluids IV NS via IV site #1 Discontinued: completed. Total amount infused: 1000 mL.IV patency established. IV site checked: no pain, redness, or swelling. IV flushed thoroughly. --15:4805/08/20 Tracey Arzola R.N.15:48 05/08/2020 Phenergan IVPB via IV site #1 Discontinued: completed. Total amount infused: 50 mL.--15:48 05/08/20 Tracey Arzola R.N.15:49 05/08/2020 Started bag #1 1000 mL IV Fluids IV NS; bolus of 1000 mL over 1 hour(s) via site #1 viaIV pump. Allergies verified and confirmed 5 rights. IV patency established. IV site checked: no pain,redness, or swelling. IV flushed thoroughly pre- and post-medication administration. Information reviewedwith patient including reason for taking this medication, signs of allergic reaction and precautions.Verbalizes understanding. --15:49 05/08/20 Tracey Arzola R.N.Patient ID band checked for patient name and birthdate: patient confirmed. Instructions provided to collect 4 Clinical Report - Nurses [facility] Emergency Department [address] [place] [address] Phone #: ext- [phone] 05/08/2020 13:45 Patient: LIANE FIGUEROA Sex: F : 1995 Age: 24yclean catch urine and patient verbalized understanding. Clean catch urine collected; sample sent to lab forurinalysis. Specimen labeled in the presence of the patient. --15:51 05/08/20 Tracey Arzola R.N.16:11 05/08/2020 Reglan (Metoclopramide HCl) IVP 10 mg given over 2 minute(s) via site #1. Allergiesverified and confirmed 5 rights. IV patency established. IV site checked: no pain, redness, or swelling. IVflushed thoroughly pre- and post-medication administration. IVP given by RN. Information reviewed withpatient including reason for taking this medication, signs of allergic reaction and precautions. Verbalizesunderstanding. --16:12 05/08/20 Tracey Arzola R.N.16:33 05/08/2020 Started bag #1 1000 mL IV Fluids IV NS; bolus of 1000 mL over 1 hour(s) via site #1 viaIV pump. Allergies verified and confirmed 5 rights. IV patency established. IV site checked: no pain,redness, or swelling. IV flushed thoroughly pre- and post-medication administration. Information reviewedwith patient including reason for taking this medication, signs of allergic reaction and precautions.Verbalizes understanding. --16:33 05/08/20 Tracey Arzola R.N.16:33 05/08/2020 IV Fluids IV NS via IV site #1 Discontinued: bag #2 infused. Total amount infused: 1000mL. IV patency established. IV site checked: no pain, redness, or swelling. IV flushed thoroughly. --16: Tracey Arzola R.N.16:47 05/08/2020 Zofran (Ondansetron HCl) IVP 4 mg given over 2 minute(s) via site #1. Allergies verifiedand confirmed 5 rights. IV patency established. IV site checked: no pain, redness, or swelling. IV flushedthoroughly pre- and post-medication administration. IVP given by RN. Information reviewed with patientincluding reason for taking this medication, signs of allergic reaction and precautions. Verbalizesunderstanding. --16:47 05/08/20 Tracey Arzola R.N.16:47 05/08/2020 Started 20 mg of Pepcid IVPB in bag #1 50 mL; at 100 mL/hr over 30 minute(s) via site#1. via IV pump. Allergies verified and confirmed 5 rights. IV patency established. IV site checked: no pain,redness, or swelling. IV flushed thoroughly pre- and post- medication administration. Information reviewedwith patient including reason for taking this medication, signs of allergic reaction and precautions.Verbalizes understanding. --16:47 05/08/20 Tracey Arzola R.N.16:00 05/08/20. BP: 132/76. MAP: 94. HR: 53. RR: 18. O2 saturation: 100%. --17:09 05/08/20 Tracey Arzola R.N.17:00 05/08/20. BP: 100/57. MAP: 71. HR: 73. RR: 18. O2 saturation: 100%. --17:09 05/08/20 Tracey Arzola R.N.( waiting on bed for admission). --17:05/08/20 Tracey Arzola R.N.17:05/08/2020 IV Fluids IV NS via IV site #1 Discontinued: infused. Total amount infused: 1000 mL. IVpatency established. IV site checked: no pain, redness, or swelling. IV flushed thoroughly. --17:09 05/08/20Tracey Arzola R.N.17:10 05/08/2020 Started bag #1 1000 mL IV Fluids D5NS IV; at 150 mL/hr over 4 hour(s) via site #1 via IV 5 Clinical Report - Nurses [facility] Emergency Department [address] [place] [address] Phone #: ext- [phone] 05/08/2020 13:45 Patient: LIANE FIGUEROA Sex: F : 1995 Age: 1 5y pump. Allergies verified and confirmed 5 rights. IV patency established. IV site checked: no pain, redness, or swelling. IV flushed thoroughly pre- and post-medication administration. Information reviewed with patient including reason for taking this medication, signs of allergic reaction and precautions. Verbalizes understanding. --17:10 05/08/20 Tracey Arzola R.N. 17:10 05/08/2020 Pepcid IVPB via IV site #1 Discontinued: infused. Total amount infused: 50 mL. IV patency established. IV site checked: no pain, redness, or swelling. IV flushed thoroughly. --17:10 05/08/20 Tracey Arzola R.N. 17:45 05/08/2020 IV Fluids D5NS IV via IV site #1 Continued: at the rate of 150 mL/hr. 950 mL remaining bag #4. IV patency established. IV site checked: no pain, redness, or swelling. IV flushed thoroughly. --18:03 05/08/20 Tracey Arzola R.N.DISPOSITION / DISCHARGE 17:45 05/08/20. Disposition: observation in the Acute Inpatient Unit for IV fluids. Transported via stretcher by nurse with IV. Report was given to a nurse in person and via visit overview. Report included information regarding patient's treatment, allergies and condition including: recent changes, current vital signs and abnormal labs. Report included treatment information regarding medications given or pending; type and amount of IV fluids and medications infusing. All questions were answered. Report was acknowledged and care was transferred. (Twilia). Bed obtained and ready. --18:02 05/08/20 Tracey Arzola R.N. 17:45 05/08/20. BP: 110/57. MAP: 74. HR: 74. RR: 18. O2 saturation: 100%. Temp: 98.5 F. Pain level now: 02/19. --18:02 05/08/20 Tracey Arzola R.N. Departure time: 17:45 05/08/2020. --18:03 05/08/20 Tracey Arzola R.N.Locked/Released at 05/08/2020 18:04 by Tracey Arzola R.N. Name Value Range Interpretation Code Description Data Marilia rce(s) Supporting Document(s) ID Date Data Source [id number] 05/08/2020 01:45:00 PM EDT [facility] 1 Clinical Report - Physicians/Mid Levels [facility] Emergency Department [address] [place] [address] Phone #: ext- [phone] 05/08/2020 13:45 Patient: LIANE FIGUEROA Sex: F : 1995 Age: 24y Time Seen: 14:15 05/08/2020; initial patient contact. Arrived- By ambulance. Historian- patient. Disposition decision: 16:38 05/08/2020.HISTORY OF PRESENT ILLNESS Chief Complaint: VOMITING. No recent travel. She has had severe nausea and vomiting. The vomiting has occurred several times and mild, intermittent abdominal pain. The pain is described as located in the LLQ and associated with nausea and vomiting. No diarrhea, black stools, bloody stools, constipation or flank pain. No history of possible bad food exposure, known contact with a sick individual or change in routine. Has not recently been camping or on antibiotics. This started today and is still present. It was gradual in onset and has been constant. The illness is described as severe. Similar symptoms previously. Patient has had similar symptoms many times. Recent medical care: The patient was seen recently at this facility. ( on 04-18, 04-27, 05-01, 05-03 and 05-05 for hyperemesis gravidarum; pt has diclegis and phenergan and zofran and reglan at home; pt has OB US on 04-27-2020, showed IUP; pt saw her [employer] on 05-05, given diclegis and phenergan supp.).REVIEW OF SYSTEMSNo fever, muscle aches, dark urine, headache or sore throat. No cough, chest pain, difficulty breathing,excessive urination or skin rash. No jaundice, back pain, fainting episodes or blurred vision. Currently: LNMP: EDC: 12-15-2020 8 weeks In 1st trimester. Has had care in clinic.Recent son ogram showed intrauterine . G 3. P 2. The patient has had dizziness. All othersystems reviewed and are negative.PAST HISTORYSee nurses notes. Problems: Hyperemesis Gravidarum. Discomfort of . . Additional Surgeries: C- sections. Cellulitus. . Elbow wash out. 2 Clinical Report - Physicians/Mid Levels [facility] Emergency Department [address] [place] [address] Phone #: [phone] ext- [phone] 05/08/2020 13:45 Patient: LIANE FIGUEROA Sex: F : 1995 Age: 24y Medications: Unisom Sleepgels Oral, as needed. Vitamin B-6 Oral, as needed. Zofran ODT Oral, as needed. Phenergan (Promethazine) Rectal, as needed. Allergies: None.SOCIAL HISTORYFormer smoker. No alcohol use or drug use.ADDITIONAL NOTESThe nursing notes have been reviewed with agreement regarding the chief complaint, HPI, ROS, PMH andpatient medications and allergies.PHYSICAL EXAMVital Signs: 05/08/2020 14:13 BP: 130/77. MAP: 94. HR: 71. RR: 18. O2 saturation: 98% on room air.Temp: 97.8 F. Pain level now: 04/21. Have been reviewed. Oxygen saturation normal.Appearance: Alert. Oriented X3. No acute distress.Eyes: Pupils equal, round and reactive to light. Eyes normal inspection.ENT: Ears normal. Nose normal. Pharynx normal.Neck: Normal inspection. Neck supple.CVS: Normal heart rhythm and rate. Heart sounds normal. Pulses normal.Respiratory: No respiratory distress. Painless inspiration. Breath sounds normal.Abdomen: Soft. Mild tenderness in the left lower quadrant and lower abdomen. No guarding or reboundtenderness. Bowel sounds normal. No organomegaly. No mass. Femoral pulses equal.Back: Normal inspection. No CVA tenderness.Skin: Skin warm and dry. Normal skin color. No rash. Normal skin turgor.Extremities: Extremities exhibit normal ROM. No lower extremity edema.Neuro: Oriented X 3. No motor deficit. No sensory deficit. Reflexes normal.LABS, X-RAYS, AND EKGPelvic Sonogram: Normal study. A single gestation, viable intrauterine (8w2d, edc 3-6-21, urf410/min) is present. Study type: obstetrical evaluation. The study was interpreted by the radiologist.In terpretation time: 16:04 05/08/2020.Laboratory Tests: Laboratory tests have been ordered, with results reviewed and considered in themedical decision making process. OB 1ST TRI UP TO 14 WEEKS: (ELBERT: 05/08/2020 14:25) ( [facility]34[facility] In Progress OB 1ST TRI UP TO 14 WEEKS Reason(s): left pelvic pain, N/V, EDC 3-5-21, 8 weeks TRANSPORTATION: WC IV? IV?(Yes) O2? Oxygen?(No) Ro : Yes CMTS: do TV if needed CBC w Diff: (ELBERT: 05/08/2020 14:37) ( TngRcvd 05/08/2020 15:11) Final results 3 Clinical Report - Physicians/Mid Levels [facility] Emergency Department [address] [place] [address] Phone #: ext- [phone] 05/08/2020 13:45 Patient: LIANE FIGUEROA Sex: F : 1995 Age: 24y Test Result Flag Units (Reference) CBC W/AUTOMATED DIFF COMPLETE BLOOD COUNT WBC 8.1 10/uL (4.2 - 11.0) RBC 5.34 10/uL (4.20 - 5.40) HEMOGLOBIN 14.2 g/dL (12.0 - 16.0) HEMATOCRIT 43.6 % (37.0 - 47.0) MCV 81.6 fL (81.0 - 101) MCH 26.6 L pg (27.0 - 34.0) MCHC 32.6 g/dL (31.0 - 36.0) RDW 15.0 H % (11.5 - 14.5) PLATELETS 262 10/uL (150 - 450) MPV 11.2 H fL (7.4 - 10.4) NEUT 80.2 H % (37.0 - 80.0) LYMPH 13.3 L % (25.0 - 40.0) MONO 5.5 % (3.0 - 8.0) EOS 0.2 % (0.0 - 7.0) BASO 0.6 % (0.0 - 2.5) %IG 0.2 H % (0.0 - 0.0) %NRBC 0.0 % (0.0 - 0.0) #NEUT 6.47 10/uL (2.00 - 6.90) #LYMPH 1.07 10/uL (0.60 - 3.40) #MONO 0.44 10/uL (0.00 - 0.90) #EOS 0.02 10/uL (0.00 - 0.70) #BASO 0.05 10/uL (0.00 - 0.20) #IG 0.02 10/uL (0.00 - 0.10) #NRBC 0.00 10/uL (0.00 - 0.00) MANUAL DIFF NOT INDICATED RBC MORPH NOT INDICATEDCMP: (ELBERT: 05/08/2020 14:37) ( MsgRcvd 05/08/2020 15:32) Final results Test Result Flag Units (Reference) COMPREHENSIVE METABOLIC PANEL COMPREHENSIVE METABOLIC PANEL SODIUM 135 mEq/L (134 - 153) POTASSIUM 3.5 L mEq/L (3.6 - 5.0) CHLORIDE 101 mEq/L (98 - 107) CO2 14 L MEQ/L (22 - 30) GLUCOSE 80 MG/DL (65 - 110) BUN 6 L MG/DL (7 - 21) CREATININE 0.6 L MG/DL (0.7 - 1.5) BUN/CREAT 10 (8 - 27) TOTAL PROTEIN 7.6 G/DL (6.3 - 8.2) ALBUMIN 4.7 G/DL (3.9 - 5.0) GLOBULIN 2.9 GM/DL (2.4 - 3.2) A/G RATIO 1.6 (0.8 - 2.0) CALCIUM 9.6 MG/DL (8.4 - 10.2) TOTAL BILI 2.2 H MG/DL (0.2 - 1.3) ALKALINE PHOS 77 U/L (38 - 126) SGOT/AST 26 U/L (5 - 40) SGPT/ALT 48 U/L (7 - 56) ANION GAP 20.0 H mmol/L (8.0 - 16.0) AGE 24 yrs NON- AA GFR >60 mL/min AFR AMER GFR >60 mL/min Male GFR Interprentation 20-49 yrs >60 mL/min Tdlzso76-48 yrs >56 mL/min Normal 60- 69 yrs >49 mL/min Normal 70-79yrs>42 mL/min Normal 80 and above >35 mL/min Normal Female GFR 4 Clinical Report - Physicians/Mid Levels [facility] Emergency Department [address] [place] [address] Phone #: ext- [phone] 05/08/2020 13:45 Patient: LIANE FIGUEROA [facility]#: [id number] Sex: F : 1995 Age: 24y Interpretation 20-39 yrs >60 mL/min Normal 40-49 yrs >58 mL/min Normal 50-59 yrs >51 mL/min Normal 60-69 yrs >45 mL/min Normal 70-79 yrs >39 mL/min Normal 80 and above >32 mL/min Normal Lipase: (ELBERT: 05/08/2020 14:37) ( [facility] 05/08[facility] 15:31) Final results Test Result Flag Units (Reference) LIPASE 15 U/L (13 - 60) Urinalysis: (ELBERT: 05/08/2020 15:45) ( [facility] 05/08[facility] 16:06) Final results Test Result Flag Units (Reference) URINALYSIS URINALYSIS SOURCE R COLOR taisha (NORMAL: Yello CLARITY clear (NORMAL: Clear SPEC GRAVITY 1.025 (1.001 - 1.030 pH 5 (5 - 9) GLUCOSE NORM (NORMAL: Negat BILIRUBIN NEG (NORMAL: Negat KETONE 150 A (NORMAL: Negat PROTEIN 30 (NORMAL: Negat NITRITE NEG (NORMAL: Negat BLOOD NEG (NORMAL: Negat LEUK EST NEG (NORMAL: Negat UROBILINOGEN 4 (less than 1.0 MICROSCOPIC Not Indicate Beta-HCG, Quant Serum: (ELBERT: 05/08/2020 14:37) ( [facility]/08[facility] 15:47) Final results Test Result Flag Units (Reference) HCG QUANT 942531.0 mIU/mL Interpretation: Less than 5 mU/mL: Negative 6-10 mU/mL: Borderline (suggest repeat in 48 hours) >10: Positive Approx HCG range (mU/mL) Weeks post LMP 5.4-708 mU/mL 3-4 Weeks 217-13474 mU/mL 5-6 Weeks 4059-718222 mU/mL 7-8 Weeks 57963-678571 mU/mL 9-10 Weeks 41561-93178 mU/mL 12-14 Weeks 02572-54039 mU/mL 15-16 Wee ks 8240-86528 mU/mL 17-18 Weeks.PROGRESS AND PROCEDURESCourse of Care: 16:36 05/08/20. workup all in and reviewed, as well as pelvic US which shows [id number]; this is the pt's 6th ER visit in 2 weeks, wants to be admitted; will admit; case discussed w Sebastian Mosquera,hospitalist, who agrees. Critical care performed (60 minutes). Time is exclusive of separately billable procedures. Time includes: direct patient care, patient reassessment, coordination of patient care, interpretation of data (laboratory data), medical consultation and documentation of patient care- see progress notes. Patient counseled in person regarding the patient's stable condition, test results, diagnosis and need for follow-up. Patient agrees with plan of care. 5 Clinical Report - Physicians/Mid Levels [facility] Emergency Department [address] [place] [address] Phone #: ext- [phone] 05/08/2020 13:45 Patient: LIANE FIGUEROA MR N: [id number] Sex: F : 1995 Age: 24y Disposition: Condition: good and stable. Admit decision based on need for further evaluation, observation, IV hydration and medications and stabilization of condition.CLINICAL IMPRESSION Severe hyperemesis gravidarum less than 21 weeks with dehydration ( 8w2d).(Electronically signed by Tati Milner M.D. 05/08/2020 18:24) Name Value Range Interpretation Code Description Data Marilia rce(s) Supporting Document(s) ID Date Data Source [id number] 05/08/2020 04:06:00 PM EDT [facility] Name Value Range Interpretation Code Description Data Marilia rce(s) Supporting Document(s) URINALYSIS [facility] taisha NORMAL: Yellow [facility] CLARITY clear NORMAL: Clear [facility] Specific gravity of Urine by Test strip 1.025 1.001 - 1.030 [facility] pH 5 5 - 9 [facility] Glucose [Mass/volume] in Urine by Test strip NORM NORMAL: Negat [facility] Bilirubin.total [Presence] in Urine by Test strip NEG NORMAL: Negative [facility] Ketones [Presence] in Urine by Test strip 150 NORMAL: Negative A [facility] Protein [Mass/volume] in Urine by Test strip 30 NORMAL: Negat [facility] Nitrite [Presence] in Urine by Test strip NEG NORMAL: Negative [facility] BLOOD NEG NORMAL: Negative [facility] Leukocyte esterase [Presence] in Urine by Test strip NEG ABIGAIL L: Negative [facility] Urobilinogen [Mass/volume] in Urine by Test strip 4 less jeromy n 1.0 mg/dL [facility] MICROSCOPIC Not Indicate [facility] ID Date Data Source [id number] 05/08/2020 03:47:00 PM EDT [facility] Name Value Range Interpretation Code Description Data Marilia rce(s) Supporting Document(s) Choriogonadotropin.intact [Units/volume] in Serum or Plasma 897555. 0 mIU/mL [facility] Interpr etation: Less than 5 mU/mL: Negative 6-10 mU/mL: Borderline (suggest repeat in 48 hours) >10: Positive Approx HCG range (mU/mL) Weeks post LMP 5.4-708 mU/mL 3-4 Weeks 217-47018 mU/mL 5-6 Weeks 4059-917852 mU/mL 7-8 Weeks 33317-545711 mU/mL 9-10 Weeks 85347-80857 mU/mL 12-14 Weeks 33052-33810 mU/mL 15-16 Weeks 8240- 00256 mU/mL 17-18 Weeks ID Date Data Source [id number] 05/08/2020 03:32:00 PM EDT [facility] Name Value Range Interpretation Code Description Data Marilia rce(s) Supporting Document(s) COMPREHENSIVE METABOLIC PANEL [facility] COMPREHENSIVE METABOLIC PANEL Sodium [Moles/volume] in Serum or Plasma 135 mEq/L 134 - 153 [facility] Potassium [Moles/volume] in Serum or Plasma 3.5 mEq/L 3.6 - 5.0 L [facility] Chloride [Moles/volume] in Serum or Plasma 101 mEq/L 98 - 107 [facility] Carbon dioxide, total [Moles/volume] in Serum or Plasma 14 MEQ/L 22 - 30 L [facility] Glucose [Mass/volume] in Serum or Plasma 80 MG/DL 65 - 110 [facility] BUN 6 MG/DL 7 - 21 L [facility] al Creatinine [Mass/volume] in Serum or Plasma 0.6 MG/DL 0.7 - 1.5 L [facility] BUN/CREAT 10 8 - 27 [facility] Protein [Mass/volume] in Serum or Plasma 7.6 G/DL 6.3 - 8.2 [facility] Albumin [Mass/volume] in Serum or Plasma 4.7 G/DL 3.9 - 5.0 [facility] Globulin [Mass/volume] in Serum by calculation 2.9 GM/DL 2.4 - 3.2 [facility] A/G RATIO 1.6 0.8 - 2.0 [facility] Calcium [Mass/volume] in Serum or Plasma 9.6 MG/DL 8.4 - 10.2 [facility] Bilirubin.total [Mass/volume] in Serum or Plasma 2.2 MG/DL 0.2 - 1.3 H [facility] Alkaline phosphatase [Enzymatic activity/volume] in Serum or Plasma 77 U/L 38 - 126 [facility] Aspartate aminotransferase [Enzymatic activity/volume] in Serum or Plasma 26 U/L 5 - 40 [facility] Alanine aminotransferase [Enzymatic activity/volume] in Seru m or Plasma 48 U/L 7 - 56 [facility] Anion gap 3 in Serum or Plasma 20.0 mmol/L 8.0 - 16.0 H [facility]GE 24 y[facility] NON-AA GFR >60 mL/min [facility] ital AFR AMER GFR >60 mL/min [facility] Male GFR In terprentation 20-49 yrs >60 mL/min Normal 50-59 yrs >56 mL/min Normal 60-69 yrs >49 mL/min Normal 70-79yrs >42 mL/min Normal 80 and above >35 mL/min Normal Female GFR Interpretation 20-39 yrs >60 mL/min Normal 40-49 yrs >58 mL/min Normal 50-59 yrs >51 mL/min Normal 60-69 yrs >45 mL/min Normal 70-79 yrs >39 mL/min Normal 80 and above >32 mL/min Normal ID Date Data Source [id number] 05/08/2020 03:31:00 PM EDT [facility] Name Value Range Interpretation Code Description Data Marilia rce(s) Supporting Document(s) Lipase [Enzymatic activity/volume] in Serum or Plasma 15 U/L 13 - 60 [facility] ID Date Data Source [id number] 05/08/2020 03:11:00 PM EDT [facility] Name Value Range Interpretation Code Description Data Marilia rce(s) Supporting Document(s) CBC W/AUTOMATED DIFF [facility] COMPLETE BLOOD COUNT Leukocytes [#/volume] in Blood by Automated count 8.1 10^3/uL 4.2 - 1 1.0 [facility] Erythrocytes [#/volume] in Blood by Automated count 5.34 10^6/uL 4. 20 - 5.40 [facility] Hemoglobin [Mass/volume] in Blood 14.2 g/dL 12.0 - 16.0 [facility] Hematocrit [Volume Fraction] of Blood by Automated count 43.6 % 3 7.0 - 47.0 [facility] Erythrocyte mean corpuscular volume [Entitic volume] by Auto mated count 81.6 fL 81.0 - 101 [facility] Erythrocyte mean corpuscular hemoglobin [Entitic mass] by Automated count 26.6 pg 27.0 - 34.0 L [facility] Erythrocyte mean corpuscular hemoglobin concentration [Mass/volume] by Automated count 32.6 g/dL 31.0 - 36.0 [facility] Erythrocyte distribution width [Ratio] by Automated count 15.0 % 11.5 - 14.5 H [facility] Platelets [#/volume] in Blood by Automated count 262 10^3/uL 150 - 45 0 [facility] Platelet mean volume [Entitic volume] in Blood by Automated count 11.2 fL 7.4 - 10.4 H [facility] Neutrophils/100 leukocytes in Blood by Automated count 80.2 % 37. 0 - 80.0 H [facility] Lymphocytes/100 leukocytes in Blood by Manual count 13.3 % 25.0 - 40.0 L [facility] Monocytes/100 leukocytes in Blood by Automated count 5.5 % 3.0 - 8.0 [facility] Eosinophils/100 leukocytes in Blood by Automated count 0.2 % 0.0 - 7.0 [facility] Basophils/100 leukocytes in Blood by Automated count 0.6 % 0.0 - 2.5 [facility] %IG 0.2 % 0.0 - 0.0 H [facility] al %NRBC 0.0 % 0.0 - 0.0 [facility] al Neutrophils [#/volume] in Blood by Automated count 6.47 10^3/uL 2.00 - 6.90 [facility] Lymphocytes [#/volume] in Blood by Automated count 1.07 10^3/uL 0.60 - 3.40 [facility] Monocytes [#/volume] in Blood by Automated count 0.44 10^3/uL 0.00 - 0.90 [facility] Eosinophils [#/volume] in Blood by Automated count 0.02 10^3/uL 0.00 - 0.70 [facility] Basophils [#/volume] in Blood by Automated count 0.05 10^3/uL 0.00 - 0.20 [facility] #IG 0.02 10^3/uL 0.00 - 0.10 [facility] #NRBC 0.00 10^3/uL 0.00 - 0.00 [facility] MANUAL DIFF NOT INDICATED [facility] RBC MORPH NOT INDICATED [facility] spital ID Date Data Source [id number] 05/05/2020 08:12:00 AM EDT [facility] 1 OrderSheet [facility] Emergency Department [address] [place] [address] Phone #: ext- [phone] 05/05/2020 08:08 Patient: LIANE FIGEUROA Sex: F : 1995 Age: 24yWEIGHT:69.8 kg (S) HEIGHT:66 inches (S) BMI:24.8ALLERGIES: NoneCHIEF COMPLAINT: abd crampsDIAGNOSIS: Hyperemesis gravidarumLAB ORDERSOrder Description Priority Entered Acknowledged InitialedUrinalysis (Clean STAT 08:32 05/05/2020 10:08 Susan Montes RN Physician;CBC w Diff STAT 08:32 05/05/2020 08:34 Tracey Arzola R.N. Physician;CMP STAT 08:32 05/05/2020 08:34 Tracey Arzola R.N. Physician;DIAGNOSTIC STUDY ORDERSOrder Description Priority Entered Acknowledged InitialedMEDICATION/IV/DRIP/FLUID ORDERSOrder Description Priority Entered Acknowledged InitialedIV NS : Bolus 1000 08:31 05/05/2020 08:34 Karie Arzola, then 250 mL/hr Jefe Lowery R.NHerminia(can be titrated per Physician;additionalphysicianinstruction)Zofran 4 mg IVP X 1 08:31 05/05/2020 08:35 Cammy Arzolaose: 8 mg (NOW Jefe Curielrus R.N.x1, NOW) Physician;Phenergan 25 mg 09:04 05/05/2020 09:17 Edinson Arzola 50 mL NS, give Jefe Muñozs R.N.wide open: 25 mg Physician;(NOW x1, HIGHALERTMEDICATION) 2 OrderSheet [facility] Emergency Department [address] [place] [address] Phone #: ext- [phone] 05/05/2020 08:08 ------ Patient: LIANE FIGUEROA Sex: F : 1995 Age: 24yGENERAL ORDERSOrder Description Priority Entered Acknowledged InitialedPulse oximeter 08:32 05/05/2020 08:34 Tracey Arzola(Spot Check) Jefe Lowery R.N. Physician;Saline Lock 08:32 05/05/2020 08:34 Tracey Arzola R.N. Physician;[Electronically signed by Tracey Arzola R.N. (12:58 05/05/2020)][Electronically signed by Jefe Lowery Physician (08:54 05/07/2020)][Electronically locked by Tracey Arzola R.N. (12:58 05/05/2020)] Name Value Range Interpretation Code Description Data Marilia rce(s) Supporting Document(s) ID Date Data Source [id number] 05/05/2020 08:12:00 AM EDT [facility] 1 Medication Reconciliation Report [facility] Emergency Department [address] [place] [address] Phone #: ext- [phone] 05/05/2020 08:08 Patient: LIANE FIGUEROA Sex: F : 1995 Age: 24yWeight: 69.8 kgHeight/Length: 66 in.BMI: 24.8ALLERGIES: NoneThe patient's Home Medications are listed below:THE FOLLOWING MEDICATIONS NEED TO BE RECONCILED: Phenergan (Promethazine) Rectal, prnThe source(s) of the original Home Medication information:Not obtained.The following Medications were given to the patient in the Emergency Department:IV NS IV Fluids bolus 1000 mL over 1 hour(s), administered: 05/05/2020 8:34:00 AMZofran [IVP] IVP 8 mg, administered: 05/05/2020 8:35:00 AMPHENERGAN [IVP] IVP 25 mg, administered: 05/05/2020 9:17:00 AMThe following Medications were prescribed to the patient:Diclegis 10 mg-10 mg tablet,delayed release Take 2 tablet at bedtime as needed for 10 days -- fornausea / vomiting / hyperemesis. Dispense 20 tablet. Refills: 0. Substitution permitted.Pharmacy - [address] ; [place] [address]. FaxNumber: [phone]. -- Jefe Lowery, Physician Name Value Range Interpretation Code Description Data Marilia rce(s) Supporting Document(s) ID Date Data Source [id number] 05/05/2020 08:12:00 AM EDT [facility] 1 Medication Administration Record [facility] Emergency Department [address] [place] [address] Phone #: ext- [phone] 05/05/2020 08:08 Patient: LIANE FIGUEROA Sex: F : 1995 Age: 24yWeight: 69.8 kgHeight/Length: 66 inBMI: 24.8ALLERGIES: None Date/Time Medication Administered Medication OrderedStart IV NS IV NS : Bolus 1000 mL, then 63471:34 05/05/2020 Dose: IV Fluids mL/hr (can be titrated Tracey Figueroa RAnastacio Bolus: 1000 mL over 1 hour(s) additional physician instruction)---- Dispensed: 1000 mL bagStop Site: #1 right AC10:18 05/05/2020PeForman RNGiven ZOFRAN [IVP] (ONDANSETRON HCL) Zofran 4 mg IVP X 1 dose: 8 mg08:35 05/05/2020 Dose: 8 mg IVP (NOW x1, NOW)Tracey Arzola R.N. Site: #1 right ACGiven PHENERGAN [IVP] (PROMETHAZINE Phenergan 25 mg in 50 mL NS,09:17 05/05/2020 HCL) give wide open: 25 mg (Dariusz Mix Julie, R.N. Dose: 25 mg IVP HIGH ALERT MEDICATION) Site: #1 right AC Name Value Range Interpretation Code Description Data Marilia rce(s) Supporting Document(s) ID Date Data Source [id number] 05/05/2020 08:12:00 AM EDT [facility] 1 General Instructions [facility] Emergency Department [address] [place] [address] Phone #: ext- [phone] 05/05/2020 08:08 Patient: LIANE FIGUEROA Sex: F : 1995 Age: 24yModerate hyperemesis gravidarum less than 21 weeks with volume depletion.INSTRUCTIONSDrink plenty of fluids.Warnings: GENERAL WARNINGS: Return or contact your physician immediately if your conditionworsens or changes unexpectedly, if not improving as expected, or if other problems arise.Prescription Medications:Diclegis 10 mg-10 mg tablet,delayed release Take 2 tablet at bedtime as needed for 10 days -- fornausea / vomiting / hyperemesis. Dispense 20 tablet. Refills: 0. Substitution permitted.Pharmacy - [facility] - [id number] [facility] ; [place] [address]. .Follow-up:Follow up with a motion picture printer and an arc cutter if not better. Call for an appointment. Reason for referral:evaluation, treatment and Hyperemesis gravidarum.Understanding of the discharge instructions verbalized by patient. ADDITIONAL INFORMATIONHyperemesis GravidarumHyperemesis gravidarum is a severe form of morning sickness that can affect some women duringpregnancy. It may develop around the 5th week and last until the 16th week of . In somewomen, it may last longer. Symptoms include severe nausea and vomiting. This can lead to problemssuch as weight loss and dehydration.It's not clear what causes hyperemesis gravidarum. It may be from rising hormone levels early in thepregnancy. It can be a serious threat to mother and fetus if symptoms are severe. Follow the advicebelow carefully. If your symptoms don't get better with home care measures, you may need to stay inthe hospital. In the hospital, you may get IV (intravenous) fluids and medicines.Home care 2 General Instructions [facility] Emergency Department [address] [place] [address] Phone #: ext- [phone] 05/05/2020 08:08 Patient: LIANE FIGUEROA Sex: F : 1995 Age: 24yDiet Keep a log of the foods you eat and how they affect your symptoms. Don't eat foods that trigger your symptoms. Eat small meals often throughout the day rather than 3 large meals. This can help keep your stomach from being empty. An empty stomach can make nausea worse. Choose foods that are high in carbohydrates. Eating foods high in protein may also help. Limit greasy or spicy foods. Before getting out of bed in the morning, try eating crackers or dry toast. This may help settle your stomach. Drink cold, clear liquids. Drinking small amounts of liquids with electrolytes, such as sports drinks, may help as well.Medicine If needed, your healthcare provider may prescribe certain medicines to help ease nausea and vomiting. Your provider may suggest vitamin B6 and nat. Don't try any optu-lwg-[id number] medicines or home remedies without talking with your provider first.Follow-up careFollow up with your healthcare provider, or as advised.When to seek medical adviceCall your healthcare provider right away if any of these occur: Signs of dehydration. These include dry mouth, extreme thirst, dark urine or little urine output, dizziness, weakness, or fainting. Vomiting that won't stop Inability to keep down liquids Frequent diarrhea Weight loss or no weight gain over a 2-week period Severe constant pain in the lower right abdomen Fever of 100.4F (38C) or higher, or as directed by your healthcare provider [phone] [employer]. [address] [place] [address]. All rights reserved. This information is not intended as asubstitute for professional medical care. Always follow your healthcare professional's instructions. 3 General Instructions [facility] Emergency Department [address] [place] [address] Phone #: ext- [phone] 05/05/2020 08:08 Patient: LIANE FIGUEROA Sex: F : 1995 Age: 24yYou have been given the following additional information:Hyperemesis Gravidarum(Electronically signed by Jefe Lowery, Physician 05/07/2020 08:54) Name Value Range Interpretation Code Description Data Marilia rce(s) Supporting Document(s) ID Date Data Source [id number] 05/05/2020 08:12:00 AM EDT [facility] 1 Clinical Report - Nurses [facility] Emergency Department [address] [place] [address] Phone #: ext- [phone] 05/05/2020 08:08 Patient: LIANE FIGUEROA Sex: F : 1995 Age: 24yTRIAGEArrived by private vehicle. Historian: patient. Accompanied by family. ( 8 weeks and hasnausea and vomit was told to come in by OB).Acuity: LEVEL 3.Chief Complaint: ABDOMINAL PAIN, NAUSEA and VOMITING.Alert. No acute distress.Onset. (constant since for weeks). The patient has had abdominal pain. The pain is described as locatedin the central area of the abdomen.Treatment FRATERNITY ADVISER:None.SEPSIS SCREEN: SIRS Screen negative. Sepsis Screen negative. No suspected or confirmed signs ofinfection present. --08:16 05/05/20 Tracey Arzola R.N.08:10 05/05/20. BP: 117/70. MAP: 85. HR: 60. RR: 18. O2 saturation: 100%. Temp: 98.4 F (temporal).Pain level now: 01/20. --08:16 05/05/20 Tracey Arzola R.N.Weight: 69.8 kg stated. Height/Length: 66 inches Per Patient. BMI: 24.8. --08:10 05/05/20 Tracey Arzola R.N.MedicationsPhenergan (Promethazine) Rectal, as needed. --08:12 05/05/20 Tracey Arzola R.N.AllergiesNone. --08:11 05/05/20 Tracey Arzola R.N.PROBLEMS:Hyperemesis Gravidarum.Dehydration.Hypokalemia.Psoriasis.. --08:13 05/05/20 Tracey Arzola R.N.ADDITIONAL SURGERIES:Cellulitus. (X2).Elbow wash out. --08:13 05/05/20 Tracey Arzola R.N.History 2 Clinical Report - Nurses [facility] Emergency Department [address] [place] [address] Phone #: ext- [phone] 05/05/2020 08:08 Patient: LIANE FIGUEROA Sex: F : 1995 Age: 24y PAST MEDICAL HX: Immunizations: up-to-date. Last normal menstrual period- end of february. Currently . confirmed with urine test and serum test. G 4. P 2. SOCIAL HX: Never smoker. No alcohol use or drug use. No recent travel. No known contact with a sick individual. The patient was offered HIV testing but declined and hepatitis C testing but declined. The patient has not traveled outside the [place] Infectious disease exposure: No infectious disease exposure. Patient is not a known carrier of tuberculosis, hepatitis, HIV, MRSA or VRE. Patient is not a known carrier of CRE. SELF HARM ASSESSMENT: Self harm assessment was performed. The patient answered "no" to the question(s) "Have you recently felt down, depressed, or hopeless?", "Do you have thoughts of harming or killing yourself?", "Do you have a plan for harming or killing yourself?", "Have you recently had thoughts about harming or killing others?", "Do you have any dangerous items in your possession?", "Have you noticed less interest or pleasure in doing things?", "Are you here because you tried to hurt yourself?" and "Have you ever tried to hurt yourself before today?". ABUSE ASSESSMENT: Abuse assessment. Abuse denied. No suspicion of abuse. No report of abuse. NUTRITIONAL RISK ASSESSMENT: The nutritional risk assessment revealed no deficiencies. FUNCTIONAL ASSESSMENT: Functional assessment: no impairments noted. LEARNING NEEDS ASSESSMENT: The learning needs assessment revealed no barriers. FALL RISK ASSESSMENT: Fall risk assessment completed. No risk factors identified. SKIN INTEGRITY ASSESSMENT: Skin integrity risk assessment completed. No skin integrity risk identified. --08:16 05/05/20 Tracey Arzola R.N. Interventions Identification band on patient. To treatment room. --08:05/05/20 Tracey Arzola R.N.PHYSICAL ASSESSMENTGENERAL / NEURO / PSYCH: Alert. Oriented X 4. Appears in no acute distress.HEENT: Mucous membranes are pink.RESPIRATORY: R espirations not labored. Breath sounds within normal limits.CVS: Normal sinus rhythm noted. Capillary refill less than 2 seconds.GI / : The patient has had nausea. Emesis noted. Abdomen soft. Abdominal tenderness in theperiumbilical area. Bowel sounds within normal limits.SKIN: Skin is warm and dry. --08:16 05/05/20 Tracey Arzola R.N.NURSING PROGRESS NOTESReassurance given. Two patient identifiers checked. Call light placed in reach. Side rails up x 2. Bedplaced in lowest position. Brakes of bed on. Patient ready for evaluation- ED physician notified. --08: Tracey Arzola R.N. 3 Clinical Report - Nurses [facility] Emergency Department [address] [place] [address] Phone #: ext- [phone] 05/05/2020 08:08 Patient: LIANE FIGUEROA Sex: F : 1995 Age: 24y08:29 05/05/2020 Site #1 started via IV in the right antecubital space with an 20g angiocath, with aseptictechnique and good blood return; two attempts. --08:29 05/05/20 Tracey Arzola R.N.08:34 05/05/2020 Started bag #1 1000 mL IV Fluids IV NS; bolus of 1000 mL over 1 hour(s) via site #1 viaIV pump. Allergies verified and confirmed 5 rights. IV patency established. IV site checked: no pain,redness, or swelling. IV flushed thoroughly pre- and post-medication administration. Information reviewedwith patient including reason for taking this medication, signs of allergic reaction and precautions.Verbalizes understanding. --08:34 05/05/20 Tracey Arzola R.N.08:35 05/05/2020 Zofran (Ondansetron HCl) IVP 8 mg given over 2 minute(s) via site #1. Allergies verifiedand confirmed 5 rights. IV patency established. IV site checked: no pain, redness, or swelling. IV flushedthoroughly pre- and post-medication administration. IVP given by RN. Information reviewed with patientincluding reason for taking this medication, signs of allergic reaction and precautions. Verbalizesunderstanding. --08:35 05/05/20 Tracey Arzola R.N.( blanket given to pt, pt states she still has nausea, MD made aware). --08:57 05/05/20 Tracey Arzola R.N.08:58 05/05/20. BP: 120/75. MAP: 90. HR: 62. RR: 18. O2 saturation: 99%. --08:59 05/05/20 Tracey Arzola R.N.09:17 05/05/2020 PHENERGAN (Promethazine HCl) IVP 25 mg given over 15 minute(s) via site #1.Allergies verified and confirmed 5 rights. IV patency established. IV site checked: no pain, redness, orswelling. IV flushed thoroughly pre- and post- medication administration. IVP given by RN. Informationreviewed with patient including reason for taking this medication, signs of allergic reaction, precautions andsedative warning. Verbalizes understanding. --09:17 05/05/20 Tracey Arzola R.N.09:17 05/05/2020 IV Fluids IV NS via IV site #1 Bag Change: bag #1 infused. Total amount infused: 1000.STARTED bag #2 (1000 mL) at 250 mL/hr via IV pump. Confirmed 5 rights. IV patency established. IV sitechecked: no pain, redness, or swelling. IV flushed thoroughly. --09:17 05/05/20 Tracey Arzola R.N.( resting at present). --09:45 05/05/20 Tracey Arzola R.N.09:44 05/05/20. BP: 118/76. MAP: 90. HR: 92. RR: 18. O2 saturation: 99%. --09:45 05/05/20 Tracey Arzola R.N.( pt up ambulating to the bathroom to provide a sample, denies any pain or nausea). --10:09 05/05/20Ayden Montes RN10:18 05/05/2020 IV Fluids IV NS via IV site #1 Discontinued: bag #2 STOPPED. Total amount infused:250 mL (pt states her IV hurts, stopped fluid and advised MD, he voices provide a sode to pt and if she canhold it down, she'll be discharged). --10:18 05/05/20 Ayden Montes RN10:53 05/05/2020 Site #1 removed (infiltrated). --10:53 05/05/20 Ayden Montes RN 4 Clinical Report - Nurses [facility] Emergency Department [address] [place] [address] Phone #: ext- [phone] 05/05/2020 08:08 Patient: LIANE FIGUEROA Sex: F : 1995 Age: 24y ( IV attempt unsuccessful x 3, made aware). --10:53 05/05/20 Ayden Montes RN 11:06 05/05/2020 Site #2 started via IV in the left upper arm with an 20g angiocath, with aseptic technique and good blood return; one attempt. Blood drawn. Labeled in the presence of the patient and sent to the lab. Saline lock flushed with 10 mL saline. --11:06 05/05/20 Erica Perkins R.N. ( IV fluids running well, pt states minimal nausea, will continue to infuse second liter of fluid). --11:25 05/05/20 Ayden Montes RN 12:57 05/05/2020 Site #2 removed upon discharge. Pressure dressing applied. --12:57 05/05/20 Tracey Arzola R.N.DISPOSITION / DISCHARGE Condition at departure: improved. No learning barriers present. Discharge instructions provided and reviewed with the patient. Reviewed medication(s) side effects, precautions, dosing and course information. Prescription(s) given to the patient. Medication(s) for home use given to the patient per protocol. Reviewed fever care and rest instructions. Patient verbalized understanding. Written instructions provided in Armenian. The patient was discharged home and unaccompanied at time of discharge. She left ambulatory and via private vehicle. Patient driving. --12:58 05/05/20 Tracey Arzola R.N. 12:57 05/05/20. BP: 122/74. MAP: 90. HR: 90. RR: 8. O2 saturation: 99%. Temp: 98.3 F (oral). Pain level now: 11/22. --12:58 05/05/20 Tracey Arzola R.N. Departure time: 12:58 05/05/2020. --12:58 05/05/20 Tracey Arzola R.N.Locked/Released at 05/05/2020 12:58 by Tracey Arzola R.N. Name Value Range Interpretation Code Description Data Marilia rce(s) Supporting Document(s) ID Date Data Source [id number] 05/05/2020 08:12:00 AM EDT [facility] 1 Clinical Report - Physicians/Mid Levels [facility] Emergency Department [address] [place] [address] Phone #: ext- [phone] 05/05/2020 08:08 Patient: LIANE FIGUEROA Sex: F : 1995 Age: 24y Time Seen: 08:19 05/05/2020. Arrived- By private vehicle. Historian- patient. RETURN VISIT: recently seen in this ED. Seen now for the same problem as before. Disposition decision: 12:48 05/05/2020.HISTORY OF PRESENT ILLNESS Chief Complaint: ABDOMINAL CRAMPS Vomiting during . This started several days ago; Pt. is about 8 weeks and has been having hyperemesis for over a week. She has had this in prior pregnancies also. and still present. It was abr upt in onset and has been waxing/waning. The symptoms are described as moderate. The patient has had moderate, crampy abdominal pain. The pain is described as located in the upper abdomen and epigastrium. No pelvic pain, vaginal pain, low back pain, flank pain or irregular periods. No abnormal bleeding, vaginal discharge, vaginal itching, genital lesions or pain with urination. No urinary frequency, urgency of urination or hematuria. The patient has missed a period (8 weeks ). Does not use control measures. Currently . In 1st trimester. Receiving care. Similar symptoms previously. Patient has had similar symptoms occasionally. ( Has had similar vomiting issues in prior pregnancies). Recent medical care: The patient was seen recently at this facility in the emergency department. ( Has been here in).REVIEW OF SYSTEMSThe patient has had nausea. She has had vomiting. No diarrhea, black stools, headache, fever or chills.No anorexia, eye discomfort, sore throat, cough or d ifficulty breathing. No chest pain, skin rash, enlargedlymph nodes or joint pain.PAST HISTORYPast history not negative. See nurses notes. Other disease. ( Ab1 - Currently 8 weeksPsoriasis). Surgeries: has been performed twice. (Elbow wash-out).SOCIAL HISTORYNever smoker. No alcohol use or drug use. No recent travel.ADDITIONAL NOTESThe nursing notes have been reviewed with agreement regarding the chief complaint, HPI, ROS, PMH andpatient medications and allergies. 2 Clinical Report - Physicians/Mid Levels [facility] Emergency Department [address] [place] [address] Phone #: ext- [phone] 05/05/2020 08:08 Patient: LIANE FIGUEROA Sex: F : 1995 Age: 24yPHYSICAL EXAMVital Signs: 05/05/2020 08:10 BP: 117/70. MAP: 85. HR: 60. RR: 18. O2 saturation: 100%. Temp: 98.4 F.Pain level now: 10. Have been reviewed and appear to be correct. Blood pressure normal. Heart ratenormal. Respiratory rate normal. Temperature normal. Oxygen saturation normal.Appearance: Alert. Oriented X3. Anxious. Appears to be in pain. Patient in moderate distress. Indistress.HEENT: Normal external inspection.ENT: Pharynx abnormal. (Dry mouth).Neck: Neck supple.CVS: Heart sounds normal.Respiratory: No respiratory distress. Painless inspiration. Breath sounds normal. Chest nontender.Abdomen: Soft. Mild tenderness in the upper abdomen and epigastric area. Bowel sounds normal. Noorganomegaly. No mass. Tenderness present.Back: Normal external inspection.: (Deferred).Skin: Skin warm and dry. Normal skin color. No rash. Normal skin turgor.Extremities: Extremities nontender. No lower extremity edema.Neuro: Oriented X 3. Mood/affect normal. No motor deficit. No sensory deficit.LABS, X-RAYS, AND EKGLaboratory Tests: Laboratory tests have been ordered, with results reviewed and considered in themedical decision making process. Urinalysis: (ELBERT: 05/05/2020 08:13) ( [facility] 05/05/2020 10:47) Final results Test Result Flag Units (Reference) URINALYSIS URINALYSIS SOURCE R COLOR yellow (NORMAL: Yello CLARITY clear (NORMAL: Clear SPEC GRAVITY 1.025 (1.001 - 1.030 pH 5 (5 - 9) GLUCOSE NORM (NORMAL: Negat BILIRUBIN NEG (NORMAL: Negat KETONE 150 A (NORMAL: Negat PROTEIN 15 (NORMAL: Negat NITRITE NEG (NORMAL: Negat BLOOD NEG (NORMAL: Negat LEUK EST 25 (NORMAL: Negat UROBILINOGEN 4 (less than 1.0 MICROSCOPIC See Below WBC 1 - 3 (NORMAL: NONE RBC 0 - 1 (NORMAL: NONE EPITHELIAL FEW (NORMAL: NONE BACTERIA Trace (NORMAL: NONE MUCOUS 1+ (NORMAL: NONE CBC w Diff: (ELBERT: 05/05/2020 08:46) ( [facility] 09:07) Final results Test Result Flag Units (Reference) CBC W/AUTOMATED DIFF 3 Clinical Report - Physicians/Mid Levels [facility] Emergency Department [address] [place] [address] Phone #: ext- [phone] 05/05/2020 08:08 Patient: LIANE FIGUEROA Sex: F : 1995 Age: 24y COMPLETE BLOOD COUNT WBC 5.9 10/uL (4.2 - 11.0) RBC 4.57 10/uL (4.20 - 5.40) HEMOGLOBIN 12.0 g/dL (12.0 - 16.0) HEMATOCRIT 37.3 % (37.0 - 47.0) MCV 81.6 fL (81.0 - 101) MCH 26.3 L pg (27.0 - 34.0) MCHC 32.2 g/dL (31.0 - 36.0) RDW 15.1 H % (11.5 - 14.5) PLATELETS 233 10/uL (150 - 450) MPV 11.2 H fL (7.4 - 10.4) NEUT 68.8 % (37.0 - 80.0) LYMPH 20.8 L % (25.0 - 40.0) MONO 7.3 % (3.0 - 8.0) EOS 2.0 % (0.0 - 7.0) BASO 0.8 % (0.0 - 2.5) %IG 0.3 H % (0.0 - 0.0) %NRBC 0.0 % (0.0 - 0.0) #NEUT 4.07 10/uL (2.00 - 6.90) #LYMPH 1.23 10/uL (0.60 - 3.40) #MONO 0.43 10/uL (0.00 - 0.90) #EOS 0.12 10/uL (0.00 - 0.70) #BASO 0.05 10/uL (0.00 - 0.20) #IG 0.02 10/uL (0.00 - 0.10) #NRBC 0.00 10/uL (0.00 - 0.00) MANUAL DIFF NOT INDICATED RBC MORPH NOT INDICATEDCMP: (ELBERT: 05/05/2020 08:46) ( MsgRcvd 05/05/2020 09:27) Final results Test Result Flag Units (Reference) COMPREHENSIVE METAB OLIC PANEL COMPREHENSIVE METABOLIC PANEL SODIUM 139 mEq/L (134 - 153) POTASSIUM 3.5 L mEq/L (3.6 - 5.0) CHLORIDE 105 mEq/L (98 - 107) CO2 21 L MEQ/L (22 - 30) GLUCOSE 94 MG/DL (65 - 110) BUN 6 L MG/DL (7 - 21) CREATININE 0.4 L MG/DL (0.7 - 1.5) BUN/CREAT 15 (8 - 27) TOTAL PROTEIN 6.6 G/DL (6.3 - 8.2) ALBUMIN 4.2 G/DL (3.9 - 5.0) GLOBULIN 2.4 GM/DL (2.4 - 3.2) A/G RATIO 1.8 (0.8 - 2.0) CALCIUM 8.7 MG/DL (8.4 - 10.2) TOTAL BILI 1.1 MG/DL (0.2 - 1.3) ALKALINE PHOS 61 U/L (38 - 126) SGOT/AST 31 U/L (5 - 40) SGPT/ALT 55 U/L (7 - 56) ANION GAP 13.0 mmol/L (8.0 - 16.0) AGE 24 yrs NON-AA GFR >60 mL/min AFR AMER GFR >60 mL/min Male GFR Interprentation 20-49 yrs >60 mL/min Czearz84-22 yrs >56 mL/min Normal 60-69 yrs >49 mL/min Normal 70-79yrs>42 mL/min Normal 80 and above >35 mL/min Normal Female GFRInterpretation 20-39 yrs >60 mL/min Normal 40-49 yrs >58 mL/minNormal 50-59 yrs >51 mL/min Normal 60-69 yrs >45 mL/min Izserv84-64 yrs >39 mL/min Normal 80 and above >32 mL/min Normal 4 Clinical Report - Physicians/Mid Levels [facility] Emergency Department [address] [place] [address] Phone #: ext- [phone] 05/05/2020 08:08 Patient: LIANE FIGUEROA Sex: F : 1995 Age: 24y.PROGRESS AND PROCEDURESCourse of Care: 11:May 05 2020. Patient is stable. Symptoms better. 11:May 05 2020. Pt. is getting 2nd liter of saline now and will ultimately be discharged with an Rx for Diclegis. Will run in fluid at 500cc/Hr and monitor progress. Critical care performed (120 minutes). Time is exclusive of separately billable procedures. Time includes: direct patient care, patient reassessment, interpretation of data (laboratory data and pulse oximetry), review of patient's medical records and documentation of patient care- see progress notes. Procedures included in critical care time: peripheral IV placement and phlebotomy- see progress notes. Disposition: Discharged home in good and improved condition (12:48 May 05 2020). Condition: good.CLINICAL IMPRESSION Moderate hyperemesis gravidarum less than 21 weeks with volume depletion.INSTRUCTIONS Drink plenty of fluids. Warnings: GENERAL WARNINGS: Return or contact your physician immediately if your condition worsens or changes unexpectedly, if not improving as expected, or if other problems arise. Prescription Medications: Diclegis 10 mg-10 mg tablet,delayed release Take 2 tablet at bedtime as needed for 10 days -- for nausea / vomiting / hyperemesis. Dispense 20 tablet. Refills: 0. Substitution permitted. Pharmacy - [address] ; [place] [address]. . Follow-up: Follow up with a motion picture printer and an arc cutter if not better. Call for an appointment. Reason for referral: evaluation, treatment and Hyperemesis gravidarum. Understanding of the discharge instructions verbalized by patient. 5 Clinical Report - Physicians/Mid Levels [facility] Emergency Department [address] [place] [address] Phone #: ext- [phone] 05/05/2020 08:08 [facility]: [id number] Sex: F : 1995 Age: 24y(Electronically signed by Jefe Lowery, Physician 05/07/2020 08:54) Name Value Range Interpretation Code Description Data Marilia rce(s) Supporting Document(s) ID Date Data Source [id number] 05/05/2020 09:27:00 AM EDT [facility] Name Value Range Interpretation Code Description Data Marilia rce(s) Supporting Document(s) COMPREHENSIVE METABOLIC PANEL [facility] COMPREHENSIVE METABOLIC PANEL Sodium [Moles/volume] in Serum or Plasma 139 mEq/L 134 - 153 [facility] Potassium [Moles/volume] in Serum or Plasma 3.5 mEq/L 3.6 - 5.0 L [facility] Chloride [Moles/volume] in Serum or Plasma 105 mEq/L 98 - 107 [facility] Carbon dioxide, total [Moles/volume] in Serum or Plasma 21 MEQ/L 22 - 30 L [facility] Glucose [Mass/volume] in Serum or Plasma 94 MG/DL 65 - 110 [facility] BUN 6 MG/DL 7 - 21 L [facility] Creatinine [Mass/volume] in Serum or Plasma 0.4 MG/DL 0.7 - 1.5 L [facility] BUN/CREAT 15 8 - 27 [facility] Protein [Mass/volume] in Serum or Plasma 6.6 G/DL 6.3 - 8.2 [facility] Albumin [Mass/volume] in Serum or Plasma 4.2 G/DL 3.9 - 5.0 [facility] Globulin [Mass/volume] in Serum by calculation 2.4 GM/DL 2.4 - 3.2 [facility] A/G RATIO 1.8 0.8 - 2.0 [facility] Calcium [Mass/volume] in Serum or Plasma 8.7 MG/DL 8.4 - 10.2 [facility] Bilirubin.total [Mass/volume] in Serum or Plasma 1.1 MG/DL 0.2 - 1.3 [facility] Alkaline phosphatase [Enzymatic activity/volume] in Serum or Plasma 61 U/L 38 - 126 [facility] Aspartate aminotransferase [Enzymatic activity/volume] in Serum or Plasma 31 U/L 5 - 40 [facility] Alanine aminotransferase [Enzymatic activity/volume] in Seru m or Plasma 55 U/L 7 - 56 [facility] Anion gap 3 in Serum or Plasma 13.0 mmol/L 8.0 - 16.0 [facility] AGE 24 yrs [facility] Hospit al NON-AA GFR >60 mL/min [facility] Hosp ital AFR AMER GFR >60 mL/min [facility] Ho sp[facility] Male GFR In terprentation 20-49 yrs >60 mL/min Normal 50-59 yrs >56 mL/min Normal 60-69 yrs >49 mL/min Normal 70-79yrs >42 mL/min Normal 80 and above >35 mL/min Normal Female GFR Interpretation 20-39 yrs >60 mL/min Normal 40-49 yrs >58 mL/min Normal 50-59 yrs >51 mL/min Normal 60-69 yrs >45 mL/min Normal 70-79 yrs >39 mL/min Normal 80 and above >32 mL/min Normal ID Date Data Source [id number] 05/05/2020 09:06:00 AM EDT [facility] Name Value Range Interpretation Code Description Data Marilia rce(s) Supporting Document(s) CBC W/AUTOMATED DIFF [facility] COMPLETE BLOOD COUNT Leukocytes [#/volume] in Blood by Automated count 5.9 10^3/uL 4.2 - 1 1.0 [facility] Erythrocytes [#/volume] in Blood by Automated count 4.57 10^6/uL 4. 20 - 5.40 [facility] Hemoglobin [Mass/volume] in Blood 12.0 g/dL 12.0 - 16.0 [facility] Hematocrit [Volume Fraction] of Blood by Automated count 37.3 % 3 7.0 - 47.0 [facility] Erythrocyte mean corpuscular volume [Entitic volume] by Auto mated count 81.6 fL 81.0 - 101 [facility] Erythrocyte mean corpuscular hemoglobin [Entitic mass] by Automated count 26.3 pg 27.0 - 34.0 L [facility] Erythrocyte mean corpuscular hemoglobin concentration [Mass/volume] by Automated count 32.2 g/dL 31.0 - 36.0 [facility] Erythrocyte distribution width [Ratio] by Automated count 15.1 % 11.5 - 14.5 H [facility] Platelets [#/volume] in Blood by Automated count 233 10^3/uL 150 - 45 0 [facility] Platelet mean volume [Entitic volume] in Blood by Automated count 11.2 fL 7.4 - 10.4 H [facility] Neutrophils/100 leukocytes in Blood by Automated count 68.8 % 37. 0 - 80.0 [facility] Lymphocytes/100 leukocytes in Blood by Manual count 20.8 % 25.0 - 40.0 L [facility] Monocytes/100 leukocytes in Blood by Automated count 7.3 % 3.0 - 8.0 [facility] Eosinophils/100 leukocytes in Blood by Automated count 2.0 % 0.0 - 7.0 [facility] Basophils/100 leukocytes in Blood by Automated count 0.8 % 0.0 - 2.5 [facility] %IG 0.3 % 0.0 - 0.0 H [facility] al %NRBC 0.0 % 0.0 - 0.0 [facility] al Neutrophils [#/volume] in Blood by Automated count 4.07 10^3/uL 2.00 - 6.90 [facility] Lymphocytes [#/volume] in Blood by Automated count 1.23 10^3/uL 0.60 - 3.40 [facility] Monocytes [#/volume] in Blood by Automated count 0.43 10^3/uL 0.00 - 0.90 [facility] Eosinophils [#/volume] in Blood by Automated count 0.12 10^3/uL 0.00 - 0.70 [facility] Basophils [#/volume] in Blood by Automated count 0.05 10^3/uL 0.00 - 0.20 [facility] #IG 0.02 10^3/uL 0.00 - 0.10 [facility] #NRBC 0.00 10^3/uL 0.00 - 0.00 [facility] MANUAL DIFF NOT INDICATED [facility] RBC MORPH NOT INDICATED [facility] ID Date Data Source [id number] 05/05/2020 10:46:00 AM EDT [facility] Name Value Range Interpretation Code Description Data Marilia rce(s) Supporting Document(s) [facility] yellow NORMAL: Yellow [facility] CLARITY clear NORMAL: Clear [facility] Specific gravity of Urine by Test strip 1.025 1.001 - 1.030 [facility] pH 5 5 - 9 [facility] al Glucose [Mass/volume] in Urine by Test strip NORM NORMAL: Negat [facility] Bilirubin.total [Presence] in Urine by Test strip NEG NORMAL: Negative [facility] Ketones [Presence] in Urine by Test strip 150 NORMAL: Negative A [facility] Protein [Mass/volume] in Urine by Test strip 15 NORMAL: Negat [facility] Nitrite [Presence] in Urine by Test strip NEG NORMAL: Negative [facility] BLOOD NEG NORMAL: Negative [facility] Leukocyte esterase [Presence] in Urine by Test strip 25 ABIGAIL L: Negative [facility] Urobilinogen [Mass/volume] in Urine by Test strip 4 less jeromy n 1.0 mg/dL [facility] MICROSCOPIC See Below [facility] ital WBC 1 - 3 NORMAL: NONE SEEN [facility] Erythrocytes [#/volume] in Urine by Test strip 0 - 1 NORMAL: NON E SEEN [facility] EPITHELIAL FEW NORMAL: NONE SEEN [facility] Bacteria [Presence] in Urine sediment by Light microscopy Tr xavier NORMAL: NONE SEEN [facility] Mucus [Presence] in Urine sediment by Light microscopy 1+ NOR MAL: NONE SEEN [facility] ID Date Data Source [id number] 05/03/2020 09:16:00 PM EDT [facility] 1 OrderSheet [facility] Emergency Department [address] [place] [address] Phone #: ext- [phone] 05/03/2020 21:15 Patient: LIANE FIGUEROA Sex: F : 1995 Age: 24yWEIGHT:69.8 kg HEIGHT:66 inches BMI:24.8ALLERGIES: No Known Drug AllergyCHIEF COMPLAINT: vomitingDIAGNOSIS: Hyperemesis gravidarumLAB ORDERSOrder Description Priority Entered Acknowledged InitialedCBC w Diff STAT 21:46 05/03/2020 22:56 Zoss, January Tati Milner R.N., M.D.;CMP STAT 21:46 05/03/2020 22:56 Zoss, January Tati Milner R.N., M.D.;Urinalysis (Clean STAT 21:46 05/03 22:56 Zoss, AprilCatch) Tati Milner R.N., M.D.;Lipase STAT 21:46 05/03/2020 Cancelled: Physician Order 21:48 Jonh Milner Riccardo Riccardo M.D. M.D.;DIAGNOSTIC STUDY ORDERSOrder Description Priority Entered Acknowledged InitialedMEDICATION/IV/DRIP/FLUID ORDERSOrder Description Priority Entered Acknowledged InitialedNS IV 1000 mL 21:46 05/03/2020 23:02 Ede,Bolus: : Bolus 1000 Tati Milner.N.mL (X1) M.D.;Reglan 10 mg IVP 21:46 05/03/2020 23:04 Mera,X1 dose: 10 mg Tati Milner R.N.(NOW x1) M.D.;Pepcid IVPB 20 21:46 05/03/2020 23:10 Mera,mg/50mL (NOW x1, Tati Milner R.N.Infuse over 30 M.D.;minutes.)Potassium Chloride 23:09 05/03/2020 Cancelled: Other 00:14 05/04/2020 Jennifer,Liquid PO 40 meq Tati Wang R.N., M.D.; 2 OrderSheet [facility] Emergency Department [address] [place] [address] Phone #: ext- [phone] 05/03/2020 21:15 Patient: LIANE FIGUEROA Sex: F : 1995 Age: 24yPhenergan 25 mg 23:13 05/03/2020 23:22 Ede,in 50 mL NS, give Tati Milner R.N.wide open: 25 mg M.D.;(NOW x1, HIGHALERTMEDICATION)Potassium Chloride 23:14 05/03/2020 23:37 Jennifer, ChanaIVPB 10 Tati Milner R.N.meq/100mL M.D.;GENERAL ORDERSOrder Description Priority Entered Acknowledged InitialedNPO 21:46 05/03 22:46 Jonh Mera Riccardo Robert R.N. M.D.;Saline Lock 21:46 05/03/2020 22:56 Jennifer, January Tati Milner R.N., M.D.;[Electronically signed by Chana Rodriguez R.N. (01:07 05/04/2020)][Electronically signed by Tati Milner M.D. (01:16 05/04/2020)][Electronically locked by Chana Rodriguez R.N. (01:05/04/2020)] Name Value Range Interpretation Code Description Data Marilia rce(s) Supporting Document(s) ID Date Data Source [id number] 05/03/2020 09:16:00 PM EDT [facility] 1 Medication Reconciliation Report [facility] Emergency Department [address] [place] [address] Phone #: ext- [phone] 05/03/2020 21:15 Patient: LIANE FIGUEROA Sex: F : 1995 Age: 24yWeight: 69.8 kgHeight/Length: 66 in.BMI: 24.8ALLERGIES: No Known Drug AllergyThe patient's Home Medications are listed below:CONTINUE TAKING THE FOLLOWING MEDICATIONS: Promethazine HCl Oral, prnThe source(s) of the original Home Medication information:Not obtained.The following Medications were given to the patient in the Emergency Department:NS [IV] IV Fluids bolus 1000 mL wide open, administered: 05/03/2020 11:01:00 PMReglan [IVP] IVP 10 mg, administered: 05/03/2020 11:04:00 PMPepcid [IVPB] IVPB bolus 0, then 20 mg 200 mg/kg/hr, administered: 05/03/2020 11:10:00 PMPhenergan [IVPB] IVPB bolus 0, then 25 mg 200 mL/hr, administered: 05/03/2020 11:22:00 PMPotassium Chloride [IVPB] IVPB bolus 0, then 10 meq 100 mL/hr, administered: 05/03/2020 11:30:00 PMThe following Medications were prescribed to the patient:None. Name Value Range Interpretation Code Description Data Marilia rce(s) Supporting Document(s) ID Date Data Source [id number] 05/03/2020 09:16:00 PM EDT [facility] 1 Medication Administration Record [facility] Emergency Department [address] [place] [address] Phone #: ext- [phone] 05/03/2020 21:15 Patient: LIANE FIGUEROA Sex: F : 1995 Age: 24yWeight: 69.8 kgHeight/Length: 66 inBMI: 24.8ALLERGIES: No Known Drug Allergy Date/Time Medication Administered Medication OrderedStart NS [IV] NS IV 1000 mL Bolus: : Bolus 042198:01 05/03/2020 Dose: IV Fluids mL (X1)Mera, Alex, R.N. Bolus: 1000 mL wide open---- Dispensed: 1000 mL bagStop Site: #1 left AC00:45 05/04/2020Zojennifer, Chana RAnastacioGiven REGLAN [IVP] (METOCLOPRAMIDE Reglan 10 mg IVP X1 dose: 10 mg23:04 05/03/2020 HCL) (NOW x1)Alex Mera R.N. Dose: 10 mg IVP Site: #1 left ACStart PEPCID [IVPB] Pepcid IVPB 20 mg/50mL (NOW23:10 05/03/2020 Dose: 20 mg IVPB x1, Infuse over 30 minutes.)Alex Mera R.N. Rate: 200 mg/kg/hr over 15 minute(s)---- Dispensed: 50 mL bagStop Site: #1 left AC23:45 05/03/2020Zo, Chana RHerminiaNHerminiaStart PHENERGAN [IVPB] Phenergan 25 mg in 50 mL NS,23:22 05/03/2020 Dose: 25 mg IVPB give wide open: 25 mg (NOW x1,Alex Mera R.N. Rate: 200 mL/hr over 15 minute(s) HIGH ALERT MEDICATION)---- Dispensed: 50 mL bagStop Site: #1 left AC23:50 05/03/2020Zo, Chana RHerminiaNHerminiaStart POTASSIUM CHLORIDE [IVPB] Potassium Chloride IVPB 1023:30 05/03/2020 Dose: 10 meq IVPB meq/100mLZoss, Chana R.N. Rate: 100 mL/hr over 1 hour(s)---- Dispensed: 100 mL bagStop Site: #1 left AC00:45 05/04/2020Zojennifer, Chana R.NHerminia Name Value Range Interpretation Code Description Data Marilia rce(s) Supporting Document(s) ID Date Data Source [id number] 05/03/2020 09:16:00 PM EDT [facility] 1 General Instructions [facility] Emergency Department [address] [place] [address] Phone #: ext- [phone] 05/03/2020 21:15 Patient: LIANE FIGUEROA Sex: F : 1995 Age: 24yModerate hyperemesis gravidarum less than 21 weeks with electrolyte imbalance. No volume depletion,dehydration or ketones.INSTRUCTIONSDrink plenty of fluids. Avoid alcohol and NSAIDS. NSAIDS include aspirin, ibuprofen (Advil) and naproxen(Aleve). Avoid fatty, fried/greas y, lactose-containing (such as milk, cheese and ice cream), salty and spicyfoods. No alcohol. Do not smoke.(PLEASE FOLLOW UP WITH YOUR [employer] TECHNICAL MANAGER TODAY REGARDING YOUR PERSISTENTHYPEREMESIS;PLEASE FILL THE DICLEGIS AND REGLAN SCRIPTS GIVEN TO YOU BY ME ON 05-01).Warnings: Further evaluation is necessary. It is very important to follow up with a healthcare provider.GENERAL WARNINGS: Return or contact your physician immediately if your condition worsens orchanges unexpectedly, if not improving as expected, or if other problems arise. SPECIFICALLY, return ifyou develop pain in the abdomen or back, fever, vomiting, the inability to keep fluids down, blood invomitus, blood in diarrhea, fainting, lightheadedness or vaginal bleeding.Your Current Medications: Your current home medications have been reviewed.CONTINUE TAKING THE FOLLOWING MEDICATIONS:Promethazine HCl Oral : prn.Follow-up:Return to the emergency department as needed. Follow up with an arc cutter today even if well. Call moises appointment. Reason for referral: evaluation and treatment. Summary of care provided to patient viapaper.Understanding of the discharge instructions verbalized by patient. Expected course of illness, dischargeinstructions, activity level, diet, follow-up appointment and risks and benefits of treatment reviewed withpatient and understanding verbalized. Agrees to plan of care. ADDITIONAL INFORMATIONHyperemesis GravidarumHyperemesis gravidarum is a severe form of morning sickness that can affect some women duringpregnancy. It may develop around the 5th week and last until the 16th week of . In some 2 General Instructions [facility] Emergency Department [address] [place] [address] Phone #: ext- [phone] 05/03/2020 21:15 Patient: LIANE FIGUEROA Sex: F : 1995 Age: 24ywomen, it may last longer. Symptoms include severe nausea and vomiting. This can lead to problemssuch as weight loss and dehydration.It's not clear what causes hyperemesis gravidarum. It may be from rising hormone levels early in thepregnancy. It can be a serious threat to mother and fetus if symptoms are severe. Follow the advicebelow carefully. If your symptoms don't get better with home care measures, you may need to stay inthe hospital. In the hospital, you may get IV (intravenous) fluids and medicines.Home careDiet Keep a log of the foods you eat and how they affect your symptoms. Don't eat foods that trigger your symptoms. Eat small meals often throughout the day rather than 3 large meals. This can help keep your stomach from being empty. An empty stomach can make nausea worse. Choose foods that are high in carbohydrates. Eating foods high in protein may also help. Limit greasy or spicy foods. Before getting out of bed in the morning, try eating crackers or dry toast. This may help settle your stomach. Drink cold, clear liquids. Drinking small amounts of liquids with electrolytes, such as sports drinks, may help as well.Medicine If needed, your healthcare provider may prescribe certain medicines to help ease nausea and vomiting. Your provider may suggest vitamin B6 and nat. Don't try any pimy-oqa-xfesffp medicines or home remedies without talking with your provider first.Follow-up careFollow up with your healthcare provider, or as advised.When to seek medical adviceCall your healthcare provider right away if any of these occur: Signs of dehydration. These include dry mouth, extreme thirst, dark urine or little urine output, dizziness, weakness, or fainting. Vomiting that won't stop 3 General Instructions [facility] Emergency Department [address] [place] [address] Phone #: ext- [phone] 05/03/2020 21:15 Patient: LIANE FIGUEROA Sex: F : 1995 Age: 24y Inability to keep down liquids Frequent diarrhea Weight loss or no weight gain over a 2-week period Severe constant pain in the lower right abdomen Fever of 100.4F (38C) or higher, or as directed by your healthcare provider [id number] [employer]. [address] [place] [address], [place] [address]. All rights reserved. This information is not intended as asubstitute for professional medical care. Always follow your healthcare professional's instructions. You have been given the following additional information: Hyperemesis Gravidarum(Electronically signed by Tati Milner M.D. 05/04/2020 01:16) Name Value Range Interpretation Code Description Data Marilia rce(s) Supporting Document(s) ID Date Data Source [id number] 05/03/2020 09:16:00 PM EDT [facility] 1 Clinical Report - Nurses [facility] Emergency Department [address] [place] [address] Phone #: ext- [phone] 05/03/2020 21:15 Patient: LIANE FIGUEROA Sex: F : 1995 Age: 24yTRIAGEArrived by private vehicle. Historian: patient. ( pt has been here for vomiting and nausea r/t .pt is weeks now. pt saw OB this am was given promethazine and is not feeling any better ptrequesitng hydration. pt states he urine was bright orange, no clots p resent.).Triage time: 21:17 05/03/2020. Acuity: LEVEL 4.Alert.Onset. (weeks). She has had vomiting. --21:05/03/20 Cristina Tanner R.N.21:05/03/20. HR: 68. RR: 16. O2 saturation: 97%. Temp: 98.5 F. Pain level now 10. --21:05/03/20Cristina Tanner R.N.21:24 05/03/20. BP: 125/81. --21:24 05/03/20 Cristina Tanner R.N.Chief Complaint: (hyperemesis). --01:06 05/04/20 Chana Rodriguez R.N.Weight: 69.8 kg. Height/Length: 66 inches. BMI: 24.8. --21:05/03/20 Cristina Tanner R.N.MedicationsPromethazine HCl Oral, as needed. --21:05/03/20 Cristina Tanner R.N.AllergiesNo Known Drug Allergy. --21:05/03/20 Cristina Tanner R.N.HistoryPAST MEDICAL HX: Immunizations: up-to-date. Currently : 8 weeks.SOCIAL HX: Never smoker. No alcohol use or drug use. She was offered HIV testing but declined. Vedahas not traveled outside the [place]Infectious disease exposure: No infectious disease exposure. The patient was not exposed to Coronavirus.Patient is not a known carrier of tuberculosis, hepatitis, HIV, MRSA or VRE. Patient is not a known carrierof CRE.SELF HARM ASSESSMENT: Self harm assessment was performed. The patient answered "no" to thequestion(s) "Have you recently felt down, depressed, or hopeless?", "Do you have thoughts of harming orkilling yourself?", "Do you have a plan for harming or killing yourself?", "Have you recently had thoughtsabout harming or killing others?", "Do you have any dangerous items in your possession?", "Have younoticed less interest or pleasure in doing things?", "Are you here because you tried to hurt yourself?" and"Have you ever tried to hurt yourself before today?".ABUSE ASSESSMENT: Abuse assessment. Abuse denied. No suspicion of abuse. No report of abuse. 2 Clinical Report - Nurses [facility] Emergency Department [address] [place] [address] Phone #: ext- [phone] 05/03/2020 21:15 Patient: LIANE FIGUEROA Sex: F : 1995 Age: 24y NUTRITIONAL RISK ASSESSMENT: The nutritional risk assessment revealed no deficiencies. FUNCTIONAL ASSESSMENT: Functional assessment: no impairments noted. LEARNING NEEDS ASSESSMENT: The learning needs assessment revealed no barriers. FALL RISK ASSESSMENT: Fall risk assessment completed. No risk factors identified. SKIN INTEGRITY ASSESSMENT: Skin integrity risk assessment completed. No skin integrity risk identified. --21:05/03/20 Cristina Tanner R.N. FAMILY HX: No significant family medical history. --01:16 05/04/20 Tati Milner M.D. Interventions Identification band on patient. To treatment room. --21:05/03/20 Cristina Tanner R.N.PHYSICAL ASSESSMENTGENERAL / NEURO / PSYCH: Alert. Oriented X 4. 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 Abdomen soft and nontender. Bowel sounds within normal limits.EXTREMITIES: No lower extremity edema.SKIN: Skin is warm and dry. --21:05/03/20 Chana Rodriguez R.N.NURSING PROGRESS NOTESThree patient identifiers checked. --21:05/03/20 Cristina Tanner R.N. Patient gowned. Head of bed elevated. Reassurance given. Two patient identifiers checked. Bed placed in lowest position. Brakes of bed on. Patient ready for evaluation- ED physician and PA notified. --21:05/03/20 Chana Rodriguez R.N. 22:55 05/03/2020 Site #2 started via IV in the left antecubital space with an 20g angiocath, with aseptic technique and good blood return; one attempt. Saline lock flushed with 10 mL saline. --23:02 05/03/20 Alex Mera R.N. 22:57 05/03/2020 Site #1 started via IV in the left antecubital space with an 20g angiocath, with aseptic technique and good blood return; one attempt. Saline lock flushed with 10 mL saline. --22:57 05/03/20 Kasiajennifer, JanuaryAbbi 23:01 05/03/2020 Started bag #1 1000 mL IV Fluids NS; bolus of 1000 mL wide open via site #1 via IV pump. Allergies verified and confirmed 5 rights. IV patency established. IV site checked: no pain, redness, or swelling. IV flushed thoroughly pre- and post-medication administration. Information reviewed with 3 Clinical Report - Nurses [facility] Emergency Department [address] [place] [address] Phone #: ext- [phone] 05/03/2020 21:15 Patient: LIANE FIGUEROA Sex: F : 1995 Age: 24ypatient including reason for taking this medication, signs of allergic reaction and precautions. Verbalizesunderstanding. --23:02 05/03/20 Alex Mera R.N.23:04 05/03/2020 Reglan (Metoclopramide HCl) IVP 10 mg given over 2 minute(s) via site #1. Allergiesverified and confirmed 5 rights. IV patency established. IV site checked: no pain, redness, or swelling. IVflushed thoroughly pre- and post-medication administration. IVP given by RN. Information reviewed withpatient including reason for taking this medication, signs of allergic reaction and precautions. Verbalizesunderstanding. --23:04 05/03/20 Alex Mera R.N.23:10 05/03/2020 Started 20 mg of Pepcid IVPB in bag #1 50 mL; at 200 mg/kg/hr over 15 minute(s) viasite #1. via IV pump. Allergies verified and confirmed 5 rights. IV patency established. IV site checked: nopain, redness, or swelling. IV flushed thoroughly pre- and post-medication administration. Informationreviewed with patient including reason for taking this medication, signs of allergic reaction and precautions.Verbalizes understanding. --23:10 05/03/20 Alex Mera R.N.23:22 05/03/2020 Started 25 mg of Phenergan IVPB in bag #1 50 mL; at 200 mL/hr over 15 minute(s) viasite #1. via IV pump. Allergies verified and confirmed 5 rights. IV patency established. IV site checked: nopain, redness, or swelling. IV flushed thoroughly pre- and post-medication administration. Informationreviewed with patient including reason for taking this medication, signs of allergic reaction and precautions.Verbalizes understanding. --23:22 05/03/20 Alex Mera R.N.23:30 05/03/2020 Started 10 meq of Potassium Chloride IVPB in bag #1 100 mL; at 100 mL/hr over 1hour(s) via site #1. via IV pump. Allergies verified and confirmed 5 rights. IV patency established. IV sitechecked: no pain, redness, or swelling. IV flushed thoroughly pre- and post-medication administration.Information reviewed with patient including reason for taking this medication. Verbalizes understanding.--23:37 05/03/20 Chana Rodriguez R.N.( pt resting, nad, phenergan complete, warm blankets given, lights dimmed, call light in reach. will cont tomonitor.). --23:37 05/03/20 Chana Rodriguez R.N.00:11 05/04/20. BP: 102/64. MAP: 76. HR: 54. RR: 18. O2 saturation: 99%. Pain level now: 0/10.--00:13 05/04/20 Chana Rodriguez R.N.( pt resting, nad, no vomiting since meds given. will cont to monitor.). --00:13 05/04/20 [facility]January, R.N.23:45 05/03/2020 Pepcid IVPB via IV site #1 Discontinued: bag #1 infused. Total amount infused: 50 mL.IV patency established. IV site checked: no pain, redness, or swelling. IV flushed thoroughly. --00:147 ZoJanuary, R.N.23:50 05/03/2020 Phenergan IVPB via IV site #1 Discontinued: bag #1 infused. Total amount infused: 50mL. IV patency established. IV site checked: no pain, redness, or swelling. IV flushed thoroughly. --00:157 january, R.N.Reassessment acuity: LEVEL 3. 4 Clinical Report - Nurses [facility] Emergency Department [address] [place] [address] Phone #: ext- [phone] 05/03/2020 21:15 Patient: LIANE FIGUEROA Sex: F : 1995 Age: 24y GI / : The patient reports nausea. Abdomen soft and nontender. No vaginal bleeding. SKIN: Skin is warm and dry. Call light placed in reach. Side rails up x 2. Bed placed in lowest position. Brakes of bed on. --00:57 05/04/20 Alex Mera R.N. 00:55 05/04/20. BP: 122. HR: 83. RR: 16. O2 saturation: 100%. Temp: 98.2 F. Pain level now: 0/10. --00:57 05/04/20 Alex Mera R.N. Correction. --00:58 05/04/20 Alex Mera R.N. 00:58 05/04/20. BP: 122/83. MAP: 96. HR: 62. RR: 16. O2 saturation: 100%. Temp: 98.1 F. Pain level now: 0/10. --01:00 05/04/20 Alex Mera R.N.DISPOSITION / DISCHARGE 00:45 05/04/2020 IV Fluids NS via IV site #1 Discontinued: bag #1 infused. Total amount infused: 1000 mL. IV patency established. IV site checked: no pain, redness, or swelling. IV flushed thoroughly. --01:06 05/04/20 Chana Rodriguez R.N. 00:45 05/04/2020 Potassium Chloride IVPB via IV site #1 Discontinued: bag #1 infused. Total amount infused: 100 mL. IV patency established. IV site checked: no pain, redness, or swelling. IV flushed thoroughly. --01:06 05/04/20 Chana Rodriguez R.NHerminia 01:05 05/04/2020 Site #1 removed upon discharge. Catheter intact. Bandaid applied. --01:05 05/04/20 Chana Rodriguez R.NHerminia 01:05 05/04/2020 Site #2 removed upon discharge. Catheter intact. Bandaid applied (same iv as #1, charted twice.). --01:05 05/04/20 Chana Rodriguez R.N. Condition at departure: improved and stable. No learning barriers present. Discharge instructions provided and reviewed with the patient. Follow up contact number OB. Patient verbalized understanding. Written instructions provided in Armenian. The patient was discharged by the physician. She was discharged home. She left ambulatory and via private vehicle. Patient driving. --01:06 05/04/20 Chana Rodriguez R.N. 01:04 05/04/20. BP: 107/69. MAP: 81. HR: 53. RR: 18. O2 saturation: 99%. Temp: 98.2 F. Pain level now: 0/10. --01:06 05/04/20 Chana Rodriguez R.N.Locked/Released at 05/04/2020 01:07 by Chana Rodriguez R.N. Name Value Range Interpretation Code Description Data Marilia rce(s) Supporting Document(s) ID Date Data Source [id number] 05/03/2020 09:16:00 PM EDT [facility] 1 Clinical Report - Physicians/Mid Levels [facility] Emergency Department [address] [place] [address] Phone #: ext- [phone] 05/03/2020 21:15 Patient: LIANE FIGUEROA Sex: F : 1995 Age: 24y Time Seen: 21:37 05/03/2020; initial patient contact. Arrived- By private vehicle. Historian- patient. Disposition decision: 00:18 05/04/2020.HISTORY OF PRESENT ILLNESS Chief Complaint: VOMITING. No recent travel. She has had severe nausea and vomiting. The vomiting has occurred several times. No diarrhea, black stools, bloody stools, abdominal pain or constipation. No flank pain, history of possible bad food exposure, known contact with a sick individual or change in routine. Has not recently been camping or on antibiotics. This started 3 weeks ago and is still present. It has been intermittent. The illness is described as severe. (pt saw her OB this am and was given promethazine; did not get Diclegis and Reglan from -20). Similar symptoms previously. Patient has had similar symptoms many times. Recent medical care: The patient was seen recently at this facility. ( 20, 16 and 7-7 for same, hyperemesis gravidum; pt has US on 16 showing IUP).REVIEW OF SYSTEMSNo fever, muscle aches, difficulty with urination, dark urine or headache. No dizziness, sore throat, cough,chest pain or difficulty breathing. No excessive urination, skin rash, jaundice, back pain or faintingepisodes. No blurred vision. Currently : LNMP: February 2020 EDC: December 15 2020 7w4d In 1sttrimester. confirmed with home test. Has had care in clinic. Recent sonogram showedintrauterine . G 3. P 2. All other systems reviewed and are negative.PAST HISTORYSee nurses notes. Medications: Promethazine HCl Oral, as needed. Allergies: No Known Drug Allergy.SOCIAL HISTORYNever smoker. No alcohol use or drug use. No recent travel.FAMILY HISTORYNo significant family medical history. 2 Clinical Report - Physicians/Mid Levels [facility] Emergency Department [address] [place] [address] Phone #: [phone]- [phone] 05/03/2020 21:15 Patient: LIANE FIGUEROA Sex: F : 1995 Age: 24yADDITIONAL NOTESThe nursing notes have been reviewed with agreement regarding the chief complaint, HPI, ROS, PMH andpatient medications and allergies.PHYSICAL EXAMVital Signs: 05/03/2020 21:24 BP: 125/81. MAP: 95.05/03/2020 21:17 HR: 68. RR: 16. O2 saturation: 97%. Temp: 98.5 F. Have been reviewed. Oxygensaturation normal.Appearance: Alert. Oriented X3. No acute distress.Eyes: Pupils equal, round and reactive to light. Eyes normal inspection.ENT: Ears normal. Nose normal. Pharynx normal.Neck: Normal inspection. Neck supple.CVS: Normal heart rate and rhythm. Heart sounds normal. Pulses normal.Respiratory: No respiratory distress. Painless inspiration. Breath sounds normal.Abdomen: Soft and nontender. Bowel sounds normal. No organomegaly. No mass. Femoral pulsesequal.Back: Normal inspection.Skin: Skin warm and dry. Normal skin color. No rash. Normal skin turgor.Extremities: Extremities exhibit normal ROM. No lower extremity edema.Neuro: Oriented X 3. No motor deficit. No sensory deficit. Reflexes normal.LABS, X-RAYS, AND EKGLaboratory Tests: Laboratory tests have been ordered, with results reviewed and considered in themedical decision making process. CBC w Diff: (ELBERT: 05/03/2020 21:57) ( MsgRcvd 05/03/2020 22:11) Final results Test Result Flag Units (Reference) CBC W/AUTOMATED DIFF COMPLETE BLOOD COUNT WBC 7.5 10/uL (4.2 - 11.0) RBC 4.81 10/uL (4.20 - 5.40) HEMOGLOBIN 12.6 g/dL (12.0 - 16.0) HEMATOCRIT 39.1 % (37.0 - 47.0) MCV 81.3 fL (81.0 - 101) MCH 26.2 L pg (27.0 - 34.0) MCHC 32.2 g/dL (31.0 - 36.0) RDW 14.9 H % (11.5 - 14.5) PLATELETS 249 10/uL (150 - 450) MPV 10.7 H fL (7.4 - 10.4) NEUT 59.1 % (37.0 - 80.0) LYMPH 29.8 % (25.0 - 40.0) MONO 8.0 % (3.0 - 8.0) EOS 1.9 % (0.0 - 7.0) BASO 0.9 % (0.0 - 2.5) %IG 0.3 H % (0.0 - 0.0) %NRBC 0.0 % (0.0 - 0.0) #NEUT 4.45 10/uL (2.00 - 6.90) #LYMPH 2.24 10/uL (0.60 - 3.40) #MONO 0.60 10/uL (0.00 - 0.90) #EOS 0.14 10/uL (0.00 - 0.70) 3 Clinical Report - Physicians/Mid Levels [facility] Emergency Department [address] [place] [address] Phone #: ext- [phone] 05/03/2020 21:15 Patient: LIANE FIGUEROA Sex: F : 1995 Age: 24y #BASO 0.07 10/uL (0.00 - 0.20) #IG 0.02 10/uL (0.00 - 0.10) #NRBC 0.00 10/uL (0.00 - 0.00) MANUAL DIFF NOT INDICATED RBC MORPH NOT INDICATEDCMP: (ELBERT: 05/03/2020 21:57) ( MsgRcvd 05/03/2020 22:40) Final results Test Result Flag Units (Reference) COMPREHENSIVE METABOLIC PANEL COMPREHENSIVE METABOLIC PANEL SODIUM 137 mEq/L (134 - 153) POTASSIUM 3.3 L mEq/L (3.6 - 5.0) CHLORIDE 102 mEq/L (98 - 107) CO2 22 MEQ/L (22 - 30) GLUCOSE 95 MG/DL (65 - 110) BUN 7 MG/DL (7 - 21) CREATININE 0.6 L MG/DL (0.7 - 1.5) BUN/CREAT 12 (8 - 27) TOTAL PROTEIN 7.4 G/DL (6.3 - 8.2) ALBUMIN 4.3 G/DL (3.9 - 5.0) GLOBULIN 3.1 GM/DL (2.4 - 3.2) A/G RATIO 1.4 (0.8 - 2.0) CALCIUM 9.9 MG/DL (8.4 - 10.2) TOTAL BILI 1.1 MG/DL (0.2 - 1.3) ALKALINE PHOS 62 U/L (38 - 126) SGOT/AST 43 H U/L (5 - 40) SGPT/ALT 61 H U/L (7 - 56) ANION GAP 13.0 mmol/L (8.0 - 16.0) AGE 24 yrs NON- AA GFR >60 mL/min AFR AMER GFR >60 mL/min Male GFR Interprentation 20-49 yrs >60 mL/min Hlypss26-90 yrs >56 mL/min Normal 60- 69 yrs >49 mL/min Normal 70-79yrs>42 mL/min Normal 80 and above >35 mL/min Normal Female GFRInterpretation 20-39 yrs >60 mL/min Normal 40-49 yrs >58 mL/minNormal 50-59 yrs >51 mL/min Normal 60-69 yrs >45 mL/min Kloxqi65-42 yrs >39 mL/min Normal 80 and above >32 mL/min NormalUrinalysis: (ELBERT: 05/03/2020 22:30) ( MsgRcvd 05/03/2020 22:50) Final results Test Result Flag Units (Reference) URINALYSIS URINALYSIS SOURCE R COLOR taisha (NORMAL: Yello CLARITY clear (NORMAL: Clear SPEC GRAVITY 1.020 (1.001 - 1.030 pH 6 (5 - 9) GLUCOSE NORM (NORMAL: Negat BILIRUBIN 1 (NORMAL: Negat KETONE 50 A (NORMAL: Negat PROTEIN 15 (NORMAL: Negat NITRITE NEG (NORMAL: Negat BLOOD NEG (NORMAL: Negat LEUK EST 25 (NORMAL: Negat UROBILINOGEN 12 (less than 1.0 MICROSCOPIC See Below WBC 1 - 3 (NORMAL: NONE 4 Clinical Report - Physicians/Mid Levels [facility] Emergency Department [address] [place] [address] Phone #: ext- [phone] 05/03/2020 21:15 Patient: LIANE FIGUEROA Sex: F : 1995 Age: 24y RBC None Seen (NORMAL: NONE EPITHELIAL FEW (NORMAL: NONE BACTERIA Trace (NORMAL: NONE Lipase: (ELBERT: 05/03/2020 21:46) ( MsgRcvd 05/03/2020 21:49) Canceled.PROGRESS AND PROCEDURESCourse of Care: 23:15 05/03/20. workup all in and reviewed, mild hypoK and mild transaminitis; pt stillvomiting post-reglan; will give phenergan iv and KCl iv 00:17 05/04/20. pt doing much better; no Vomiting; ready to go home; will d/c w instructions to f/u w [employer] in the am. Patient counseled in person regarding the patient's stable condition, test results, diagnosis and need for follow-up. Patient agrees with plan of care. Disposition: Condition: good and stable. Discharge decision based on the following: patient's condition is stable; patient's condition is improved; patient is ambulatory; patient is active; patient drinki ng fluids; patient's pain is controlled; patient's exam is improved; no seriously abnormal test results; improving condition on repeat evaluation; social support is good; transportation is available; follow-up is available; clinical impression is consistent with outpatient treatment.CLINICAL IMPRESSION Moderate hyperemesis gravidarum less than 21 weeks with electrolyte imbalance. No volume depletion, dehydration or ketones.INSTRUCTIONS Drink plenty of fluids. Avoid alcohol and NSAIDS. NSAIDS include aspirin, ibuprofen (Advil) and naproxen (Aleve). Avoid fatty, fried/greasy, lactose-containing (such as milk, cheese and ice cream), salty and spicy foods. No alcohol. Do not smoke. (PLEASE FOLLOW UP WITH YOUR [employer] TODAY REGARDING YOUR PERSISTENT HYPEREMESIS; PLEASE FILL THE DICLEGIS AND REGLAN SCRIPTS GIVEN TO YOU BY ME ON 05-01). Warnings: Further evaluation is necessary. It is very important to follow up with a healthcare provider. GENERAL WARNINGS: Return or contact your physician immedia tely if your condition worsens or changes unexpectedly, if not improving as expected, or if other problems arise. SPECIFICALLY, return if you develop pain in the abdomen or back, fever, vomiting, the inability to keep fluids down, blood in 5 Clinical Report - Physicians/Mid Levels [facility] Emergency Department [address] [place] [address] Phone #: ext- [phone] 05/03/2020 21:15 Patient: LIANE FIGUEROA Sex: F : 1995 Age: 24y vomitus, blood in diarrhea, fainting, lightheadedness or vaginal bleeding. Your Current Medications: Your current home medications have been reviewed. CONTINUE TAKING THE FOLLOWING MEDICATIONS: Promethazine HCl Oral : prn. Follow- up: Return to the emergency department as needed. Follow up with an arc cutter today even if well. Call for an appointment. Reason for referral: evaluation and treatment. Summary of care provided to patient via paper. Understanding of the discharge instructions verbalized by patient. Expected course of illness, discharge instructions, activity level, diet, follow-up appointment and risks and benefits of treatment reviewed with patient and understanding verbalized. Agrees to plan of care.(Electronically signed by Tati Milner M.D. 05/04/2020 01:16) Name Value Range Interpretation Code Description Data Marilia rce(s) Supporting Document(s) ID Date Data Source [id number] 05/03/2020 10:40:00 PM EDT [facility] Name Value Range Interpretation Code Description Data [facility] rce(s) Supporting Document(s) [facility]ALYS[facility] SOURCE R [facility] COLOR taisha NORMAL: Yellow [facility] CLARITY clear NORMAL: Clear [facility] spital Specific gravity of Urine by Test strip 1.020 1.001 - 1.030 [facility] pH 6 5 - 9 [facility] al Glucose [Mass/volume] in Urine by Test strip NORM NORMAL: Negat [facility] Bilirubin.total [Presence] in Urine by Test strip 1 NORMAL: Negative [facility] Ketones [Presence] in Urine by Test strip 50 NORMAL: Negative A [facility] Protein [Mass/volume] in Urine by Test strip 15 NORMAL: Negat [facility] Nitrite [Presence] in Urine by Test strip NEG NORMAL: Negative [facility] BLOOD NEG NORMAL: Negative [facility] Leukocyte esterase [Presence] in Urine by Test strip 25 ABIGAIL L: Negative [facility] Urobilinogen [Mass/volume] in Urine by Test strip 12 less jeromy n 1.0 mg/dL [facility] MICROSCOPIC See Below [facility] ital WBC 1 - 3 NORMAL: NONE SEEN [facility] Erythrocytes [#/volume] in Urine by Test strip None Seen NORMAL: NON E SEEN [facility] EPITHELIAL FEW NORMAL: NONE SEEN [facility] Bacteria [Presence] in Urine sediment by Light microscopy Tr xavier NORMAL: NONE SEEN [facility] ID Date Data Source [id number] 05/03/2020 10:40:00 PM EDT [facility] Name Value Range Interpretation Code Description Data Marilia rce(s) Supporting Document(s) COMPREHENSIVE METABOLIC PANEL [facility] COMPREHENSIVE METABOLIC PANEL Sodium [Moles/volume] in Serum or Plasma 137 mEq/L 134 - 153 [facility] Potassium [Moles/volume] in Serum or Plasma 3.3 mEq/L 3.6 - 5.0 L [facility] Chloride [Moles/volume] in Serum or Plasma 102 mEq/L 98 - 107 [facility] Carbon dioxide, total [Moles/volume] in Serum or Plasma 22 MEQ/L 22 - 30 [facility] Glucose [Mass/volume] in Serum or Plasma 95 MG/DL 65 - 110 [facility] BUN 7 MG/DL 7 - 21 [facility] Creatinine [Mass/volume] in Serum or Plasma 0.6 MG/DL 0.7 - 1.5 L [facility] BUN/CREAT 12 8 - 27 [facility] Protein [Mass/volume] in Serum or Plasma 7.4 G/DL 6.3 - 8.2 [facility] Albumin [Mass/volume] in Serum or Plasma 4.3 G/DL 3.9 - 5.0 [facility] Globulin [Mass/volume] in Serum by calculation 3.1 GM/DL 2.4 - 3.2 [facility] A/G RATIO 1.4 0.8 - 2.0 [facility] Calcium [Mass/volume] in Serum or Plasma 9.9 MG/DL 8.4 - 10.2 [facility] Bilirubin.total [Mass/volume] in Serum or Plasma 1.1 MG/DL 0.2 - 1.3 [facility] Alkaline phosphatase [Enzymatic activity/volume] in Serum or Plasma 62 U/L 38 - 126 [facility] Aspartate aminotransferase [Enzymatic activity/volume] in Serum or Plasma 43 U/L 5 - 40 H [facility] Alanine aminotransferase [Enzymatic activity/volume] in Seru m or Plasma 61 U/L 7 - 56 H [facility] Anion gap 3 in Serum or Plasma 13.0 mmol/L 8.0 - 16.0 [facility] AGE 24 yrs [facility] al NON-AA GFR >60 mL/min [facility] ital AFR AMER GFR >60 mL/min [facility] spital Male GFR In terprentation 20-49 yrs >60 mL/min Normal 50-59 yrs >56 mL/min Normal 60-69 yrs >49 mL/min Normal 70-79yrs >42 mL/min Normal 80 and above >35 mL/min Normal Female GFR Interpretation 20-39 yrs >60 mL/min Normal 40-49 yrs >58 mL/min Normal 50-59 yrs >51 mL/min Normal 60-69 yrs >45 mL/min Normal 70-79 yrs >39 mL/min Normal 80 and above >32 mL/min Normal ID Date Data Source [id number] 05/03/2020 10:11:00 PM EDT [facility] Name Value Range Interpretation Code Description Data Marilia rce(s) Supporting Document(s) CBC W/AUTOMATED DIFF [facility] COMPLETE BLOOD COUNT Leukocytes [#/volume] in Blood by Automated count 7.5 10^3/uL 4.2 - 1 1.0 [facility] Erythrocytes [#/volume] in Blood by Automated count 4.81 10^6/uL 4. 20 - 5.40 [facility] Hemoglobin [Mass/volume] in Blood 12.6 g/dL 12.0 - 16.0 [facility] Hematocrit [Volume Fraction] of Blood by Automated count 39.1 % 3 7.0 - 47.0 [facility] Erythrocyte mean corpuscular volume [Entitic volume] by Auto mated count 81.3 fL 81.0 - 101 [facility] Erythrocyte mean corpuscular hemoglobin [Entitic mass] by Automated count 26.2 pg 27.0 - 34.0 L [facility] Erythrocyte mean corpuscular hemoglobin concentration [Mass/volume] by Automated count 32.2 g/dL 31.0 - 36.0 [facility] Erythrocyte distribution width [Ratio] by Automated count 14.9 % 11.5 - 14.5 H [facility] Platelets [#/volume] in Blood by Automated count 249 10^3/uL 150 - 45 0 [facility] Platelet mean volume [Entitic volume] in Blood by Automated count 10.7 fL 7.4 - 10.4 H [facility] Neutrophils/100 leukocytes in Blood by Automated count 59.1 % 37. 0 - 80.0 [facility] Lymphocytes/100 leukocytes in Blood by Manual count 29.8 % 25.0 - 40.0 [facility] Monocytes/100 leukocytes in Blood by Automated count 8.0 % 3.0 - 8.0 [facility] Eosinophils/100 leukocytes in Blood by Automated count 1.9 % 0.0 - 7.0 [facility] Basophils/100 leukocytes in Blood by Automated count 0.9 % 0.0 - 2.5 [facility] %IG 0.3 % 0.0 - 0.0 H [facility] al %NRBC 0.0 % 0.0 - 0.0 [facility] Neutrophils [#/volume] in Blood by Automated count 4.45 10^3/uL 2.00 - 6.90 [facility] Lymphocytes [#/volume] in Blood by Automated count 2.24 10^3/uL 0.60 - 3.40 [facility] Monocytes [#/volume] in Blood by Automated count 0.60 10^3/uL 0.00 - 0.90 [facility] Eosinophils [#/volume] in Blood by Automated count 0.14 10^3/uL 0.00 - 0.70 [facility] Basophils [#/volume] in Blood by Automated count 0.07 10^3/uL 0.00 - 0.20 [facility] #IG 0.02 10^3/uL 0.00 - 0.10 [facility] #NRBC 0.00 10^3/uL 0.00 - 0.00 [facility] MANUAL DIFF NOT INDICATED [facility] RBC MORPH NOT INDICATED [facility] ID Date Data Source [id number] 05/01/2020 06:58:00 PM EDT [facility] 1 OrderSheet [facility] Emergency Department [address] [place] [address] Phone #: ext- [phone] 05/01/2020 18:40 Patient: LIANE FIGUEROA Sex: F : 1995 Age: 24yWEIGHT:73.4 kg (S) HEIGHT:66 inches (S) BMI:26.1ALLERGIES: No Known Drug AllergyCHIEF COMPLAINT: vomitingDIAGNOSIS: Hyperemesis gravidarumLAB ORDERSOrder Description Priority Entered Acknowledged InitialedCBC w Diff STAT 19:24 05/01/2020 19:25 Jonh Waite Riccardo John R.N. M.D.;CMP STAT 19:05/01/2020 19:25 Jonh Waite Riccardo John R.N. M.D.;Lipase STAT 19:05/01/2020 19:25 Jonh Waite Riccardo John R.N. M.D.;HCG Serum Quant STAT 19:05/01/2020 19:25 Jonh Waite Riccardo John R.N. M.D.;Magnesium STAT :05/01/2020 19:41 Jonh Mera Riccardo Robert R.N. M.D.;DIAGNOSTIC STUDY ORDERSOrder Description Priority Entered Acknowledged InitialedMEDICATION/IV/DRIP/FLUID ORDERSOrder Description Priority Entered Acknowledged InitialedNS IV 1000 mL 19:05/01/2020 20:01 Mariann,Bolus: : Bolus 1000 Capserrin, Tati Turcios R.N.mL (X1) M.D.;Reglan 10 mg IVP 19:05/01/2020 20:01 Mariann,X1 dose: 10 mg Turrin, Tati John R.N.(NOW x1) M.D.;Pepcid IVPB 20 19:05/01/2020 20:02 Mariann,mg/50mL (NOW x1, Turrin, Tati John R.N.Infuse over 30 M.D.;minutes.) 2 OrderSheet [facility] Emergency Department [address] [place] [address] Phone #: ext- [phone] 05/01/2020 18:40 Patient: LIANE FIGUEROA Sex: F : 1995 Age: 24yPotassium Chloride 20:17 05/01/2020 Cancelled: Physician Order 20:22 Jonh,Liquid PO 40 meq Tati Milner M.D., M.D.;Zofran IVP 8 mg 20:22 05/01/2020 21:31 Jonh Waite Riccardo John R.N. M.D.;GENERAL ORDERSOrder Description Priority Entered Acknowledged Initialed[Electronically signed by Tam Waite R.N. (22:04 05/01/2020)][Electronically signed by Tati Milner M.D. (22:30 05/01/2020)][Electronically locked by Tam Waite R.N. (22:05/01/2020)] Name Value Range Interpretation Code Description Data Marilia rce(s) Supporting Document(s) ID Date Data Source [id number] 05/01/2020 06:58:00 PM EDT [facility] 1 Medication Reconciliation Report [facility] Emergency Department [address] [place] [address] Phone #: jhi- [phone] 05/01/2020 18:40 Patient: LIANE FIGUEROA Sex: F : 1995 Age: 24yWeight: 73.4 kgHeight/Length: 66 in.BMI: 26.1ALLERGIES: No Known Drug AllergyThe patient's Home Medications are listed below:NONE.The source(s) of the original Home Medication information:patientThe following Medications were given to the patient in the Emergency Department:NS [IV] IV Fluids bolus 0, then 1000 mL/hr, administered: 05/01/2020 8:01:00 PMReglan [IVP] IVP 10 mg, administered: 05/01/2020 8:01:00 PMPepcid [IVPB] IVPB bolus 0, then 20 mg 100 mL/hr, administered: 05/01/2020 8:02:00 PMZofran [IVP] IVP 8 mg, administered: 05/01/2020 9:06:00 PMThe following Medications were prescribed to the patient:Diclegis 10 mg-10 mg tablet,delayed release Take 2 tablet every night for 10 days -- Dispense 20tablet. Refills: 2. Substitution permitted.Pharmacy - [address] ; [place] [address]. .Reglan 10 mg tablet Take 1 tablet four times a day as needed for 7 days -- Dispense 28 tablet. Refills: 2.Substitution permitted.[facility] [id number] [facility] ; [place] [address]. . -- Tati Milner M.D. Name Value Range Interpretation Code Description Data Marilia rce(s) Supporting Document(s) ID Date Data Source [id number] 05/01/2020 06:58:00 PM EDT [facility] 1 Medication Administration Record [facility] Emergency Department [address] [place] [address] Phone #: ext- [phone] 05/01/2020 18:40 Patient: LIANE FIGUEROA Sex: F : 1995 Age: 24yWeight: 73.4 kgHeight/Length: 66 inBMI: 26.1ALLERGIES: No Known Drug Allergy Date/Time Medication Administered Medication OrderedStart NS [IV] NS IV 1000 mL Bolus: : Bolus [id number] 05/01/2020 Dose: IV Fluids mL (X1)Tam Waite R.N. Rate: 1000 mL/hr over 60 minute(s)---- Dispensed: 1000 mL bagStop Site: #1 left AC22:03 05/01/2020Tam Waite R.N.Given REGLAN [IVP] (METOCLOPRAMIDE Reglan 10 mg IVP X1 dose: 10 mg20:01 05/01/2020 HCL) (NOW x1)Tam Waite R.N. Dose: 10 mg IVP Site: #1 left ACStart PEPCID [IVPB] Pepcid IVPB 20 mg/50mL (NOW20:02 05/01/2020 Dose: 20 mg IVPB x1, Infuse over 30 minutes.)Tam Waite R.N. Rate: 100 mL/hr over 30 minute(s)---- Dispensed: 50 mL bagStop Site: #1 left AC22:04 05/01/2020Tam Waite R.N.Given ZOFRAN [IVP] (ONDANSETRON HCL) Zofran IVP 8 mg21:06 05/01/2020 Dose: 8 mg IVPGTam monson R.N. Site: #1 left AC Name Value Range Interpretation Code Description Data Marilia rce(s) Supporting Document(s) ID Date Data Source [id number] 05/01/2020 06:58:00 PM EDT [facility] 1 General Instructions [facility] Emergency Department [address] [place] [address] Phone #: ext- [phone] 05/01/2020 18:40 Patient: LIANE FIGUEROA Sex: F : 1995 Age: 24yMild hyperemesis gravidarum less than 21 weeks ( 7+ weeks).INS TRUCTIONSDrink plenty of fluids. Avoid alcohol and NSAIDS. NSAIDS include aspirin, ibuprofen (Advil) and naproxen(Aleve). Avoid fatty, fried/greasy, lactose-containing (such as milk, cheese and ice cream), salty and spicyfoods. No alcohol. Do not smoke.Warnings: Further evaluation is necessary. It is very important to follow up with a healthcare provider.GENERAL WARNINGS: Return or contact your physician immediately if your condition worsens orchanges unexpectedly, if not improving as expected, or if other problems arise. SPECIFICALLY, return ifyou develop pain in the abdomen or back, fever, vomiting, the inability to keep fluids down, blood invomitus, blood in diarrhea, fainting or lightheadedness.Your Current Medications: .No home medication.Prescription Medications:Diclegis 10 mg-10 mg tablet,delayed release Take 2 tablet every night for 10 days -- Dispense 20tablet. Refills: 2. Substitution permitted.Pharmacy - [facility] [employer] [facility] ; [place] [address]. .Reglan 10 mg tablet Take 1 tablet four times a day as needed for 7 days -- Dispense 28 tablet. Refills: 2.Substitution permitted.Pharmacy - [facility] [employer] [facility] ; [place] [address]. .Follow-up:Return to the emergency department as needed. Follow up with an arc cutter in two days as scheduled.Reason for referral: evaluation and treatment. Summary of care provided to patient via paper.Understanding of the discharge instructions verbalized by patient. Expected course of illness, dischargeinstructions, activity level, diet, prescriptions x2, follow-up appointment and risks and benefits of treatmentreviewed with patient and understanding verbalized. Agrees to plan of care. ADDITIONAL INFORMATION 2 General Instructions [facility] Emergency Department [address] [place] [address] Phone #: ext- [phone] 05/01/2020 18:40 Patient: LIANE FIGUEROA Sex: F : 1995 Age: 24yHyperemesis GravidarumHyperemesis gravidarum is a severe form of morning sickness that can affect some women duringpregnancy. It may develop around the 5th week and last until the 16th week of . In somewomen, it may last longer. Symptoms include severe nausea and vomiting. This can lead to problemssuch as weight loss and dehydration.It's not clear what causes hyperemesis gravidarum. It may be from rising hormone levels early in thepregnancy. It can be a serious threat to mother and fetus if symptoms are severe. Follow the advicebelow carefully. If your symptoms don't get better with home care measures, you may need to stay inthe hospital. In the hospital, you may get IV (intravenous) fluids and medicines.Home careDiet Keep a log of the foods you eat and how they affect your symptoms. Don't eat foods that trigger your symptoms. Eat small meals often throughout the day rather than 3 large meals. This can help keep your stomach from being empty. An empty stomach can make nausea worse. Choose foods that are high in carbohydrates. Eating foods high in protein may also help. Limit greasy or spicy foods. Before getting out of bed in the morning, try eating crackers or dry toast. This may help settle your stomach. Drink cold, clear liquids. Drinking small amounts of liquids with electrolytes, such as sports drinks, may help as well.Medicine If needed, your healthcare provider may prescribe certain medicines to help ease nausea and vomiting. Your provider may suggest vitamin B6 and nat. Don't try any [id number]-[id number] medicines or home remedies without talking with your provider first.Follow-up careFollow up with your healthcare provider, or as advised.When to seek medical adviceCall your healthcare provider right away if any of these occur: Signs of dehydration. These include dry mouth, extreme thirst, dark urine or little urine output, 3 General Instructions [facility] Emergency Department [address] [place] [address] Phone #: ext- [phone] 05/01/2020 18:40 Patient: LIANE FIGUEROA Sex: F : 1995 Age: 24y dizziness, weakness, or fainting. Vomiting that won't stop Inability to keep down liquids Frequent diarrhea Weight loss or no weight gain over a 2-week period Severe constant pain in the lower right abdomen Fever of 100.4F (38C) or higher, or as directed by your healthcare provider [phone] [employer]. [address] [place] [address]. All rights reserved. This information is not intended as asubstitute for professional medical care. Always follow your healthcare professional's instructions. You have been given the following additional information: Hyperemesis Gravidarum(Electronically signed by Tati Milner M.D. 05/01/2020 22:30) Name Value Range Interpretation Code Description Data Marilia rce(s) Supporting Document(s) ID Date Data Source [id number] 05/01/2020 06:58:00 PM EDT [facility] 1 Clinical Report - Nurses [facility] Emergency Department [address] [place] [address] Phone #: ext- [phone] 05/01/2020 18:40 Patient: LIANE FIGUEROA Sex: F : 1995 Age: 24yTRIAGEArrived by private vehicle. Historian: patient.Acuity: LEVEL 3.Chief Complaint: (nausea/vomitting).Alert. No acute distress.This started last night. ( patient reports she is 8 weeks gestation and feeling "dehydrated," and "cannotkeep anything down."). No fever or swelling. Last oral intake by patient was (FRATERNITY ADVISER).Treatment FRATERNITY ADVISER:None. --18:54 05/01/20 Veronica Villegas R.N.18:48 05/01/20. BP: 103/60. MAP: 74. HR: 90. RR: 16. O2 saturation: 99%. Temp: 97.3 F. Pain level now:12/20. --18:54 05/01/20 Veronica Villegas R.N.( denies fevers, cough, SOB or recent traveling.). --18:55 05/01/20 Veronica Villegas R.N.Weight: 73.4 kg stated. Height/Length: 66 inches Per Patient. BMI: 26.1. --18:47 05/01/20 Veronica Villegas R.N.MedicationsNone. --18:52 05/01/20 Veronica Villegas R.N.AllergiesNo Known Drug Allergy. --18:52 05/01/20 Veronica Villegas R.N.PROBLEMS:no known problems.Medication/allergy information source: the patient. --18:54 05/01/20 Veronica Villegas R.N.ADDITIONAL SURGERIES:C- sections.Cellulitus. --18:53 05/01/20 Veronica Villegas R.N.HistoryPAST MEDICAL HX: Last normal menstrual period- March 06. Confirmed . In 1st trimester. confirmed with urine test, serum test and sonogram.SOCIAL HX: Never smoker. No alcohol use or drug use. The patient was offered HIV t esting butdeclined and hepatitis C testing but declined. 2 Clinical Report - Nurses [facility] Emergency Department [address] [place] [address] Phone #: ext- [phone] 05/01/2020 18:40 Patient: LIANE FIGUEROA Sex: F : 1995 Age: 24y Infectious disease exposure: No infectious disease exposure. The patient was not exposed to C-diff, MRSA, VRE or CRE. SELF HARM ASSESSMENT: Self harm assessment was performed. The patient answered "no" to the question(s) "Have you recently felt down, depressed, or hopeless?", "Do you have thoughts of harming or killing yourself?", "Do you have a plan for harming or killing y ourself?", "Have you recently had thoughts about harming or killing others?", "Do you have any dangerous items in your possession?", "Have you noticed less interest or pleasure in doing things?", "Are you here because you tried to hurt yourself?" and "Have you ever tried to hurt yourself before today?". ABUSE ASSESSMENT: No report of abuse. NUTRITIONAL RISK ASSESSMENT: The nutritional risk assessment revealed no deficiencies. FUNCTIONAL ASSESSMENT: Functional assessment: no impairments noted. LEARNING NEEDS ASSESSMENT: The learning needs assessment revealed no barriers. FALL RISK ASSESSMENT: Fall risk assessment completed. No risk factors identified. SKIN INTEGRITY ASSESSMENT: Skin integrity risk assessment completed. No skin integrity risk identified. --18:54 05/01/20 Veronica Villegas R.N. SOCIAL HX: The patient has not traveled outside the [place] Infectious disease exposure: No infectious disease exposure. --18:55 05/01/20 Veronica Villegas R.N.PHYSICAL ASSESSMENTGENERAL / NEURO / PSYCH: Alert. Oriented X 4. Appears anxious.RESPIRATORY: Respirations not labored.GI / : Emesis noted.SKIN: Skin is warm and dry. --20:02 05/01/20 Tam Waite R.N.NURSING PROGRESS NOTESPatient gowned. Head of bed elevated. Reassurance given. Call light placed in reach. Bed placed inlowest position. Brakes of bed on. Patient ready for evaluation. --19:13 05/01/20 Veronica Villegas R.N. 19:42 05/01/2020 Site #1 started via IV in the left antecubital space with an 20g angiocath, with aseptic technique and good blood return; one attempt. Blood drawn: rainbow set and green tube(s). Saline lock flushed with 10 mL saline. --19:42 05/01/20 Alex Mera R.N. 20:01 05/01/2020 Started bag #1 1000 mL IV Fluids NS; at 1000 mL/hr over 60 minute(s) via site #1 --20:01 05/01/20 Tam Waite R.N. 20:01 05/01/2020 Reglan (Metoclopramide HCl) IVP 10 mg given over 3 minute(s) via site #1. --20:01 3 Clinical Report - Nurses [facility] Emergency Department [address] [place] [address] Phone #: ext- [phone] 05/01/2020 18:40 Patient: LIANE FIGUEROA Sex: F : 1995 Age: 24y 05/01/20 Tam Waite R.N. 20:02 05/01/2020 Started 20 mg of Pepcid IVPB in bag #1 50 mL; at 100 mL/hr over 30 minute(s) via site #1. --20:02 05/01/20 Tam Waite R.N. ( pt called RN to room to inform her that she was vomiting despite medications given, info relayed to physician.). --20:23 05/01/20 Chana Rodriguez R.N. 21:06 05/01/2020 Zofran (Ondansetron HCl) IVP 8 mg given over 3 minute(s) via site #1. --21:31 05/01/20 Tam Waite R.N. Reassessment after medication administered. Nausea still present but improving. --21:34 05/01/20 Tam Waite R.N. 21:35 05/01/20. BP: 108/60. MAP: 76. HR: 76. RR: 16. O2 saturation: deferred. Temp: deferred. Pain level now: 0/10. --21:35 05/01/20 Tam Waite R.N. 22:03 05/01/2020 IV Fluids NS via IV site #1 Discontinued: bag #1 infused. Total amount infused: 1000 mL. --22:03 7/20/20 Tam Waite R.N. 22:04 05/01/2020 Pepcid IVPB via IV site #1 Discontinued: bag #1. Total amount infused: 50 mL. --22:04 05/01/20 Tam Waite R.N.DISPOSITION / DISCHARGE No learning barriers present. The patient was discharged by the physician. She was discharged home. She left ambulatory and via private vehicle. Patient driving. --22:02 05/01/20 Tam Waite R.N. 22:01 05/01/20. BP: 116/66. MAP: 82. HR: 74. RR: 18. O2 saturation: deferred. Temp: deferred. Pain level now: 0/10. --22:02 05/01/20 Tam Waite R.N. Departure time: 22:03 05/01/2020. --22:03 05/01/20 Tam Waite R.N.Locked/Released at 05/01/2020 22:04 by Tam Waite R.N. Name Value Range Interpretation Code Description Data Marilia rce(s) Supporting Document(s) ID Date Data Source [id number] 05/01/2020 06:58:00 PM EDT [facility] 1 Clinical Report - Physicians/Mid Levels [facility] Emergency Department [address] [place] [address] Phone #: ext- [phone] 05/01/2020 18:40 Patient: LIANE FIGUEROA Sex: F : 1995 Age: 24y Time Seen: 19:18 05/01/2020; initial patient contact. Arrived- By private vehicle. Historian- patient. Disposition decision: 21:49 05/01/2020.HISTORY OF PRESENT ILLNESS Chief Complaint: VOMITING. No recent travel. She has had severe nausea. She has had severe vomiting. The vomiting has occurred several times. No blood-tinged emesis, coffee-grounds emesis, frankly bloody emesis or unusually dark emesis. No diarrhea, black stools, bloody stool s, abdominal pain or constipation. No flank pain, history of possible bad food exposure, known contact with a sick individual or change in routine. Has not recently been camping or on antibiotics. This started today and is still present and worsening. It was gradual in onset and has been constant. The illness is described as severe. (pt is 7w2d). Similar symptoms previously. Patient has had similar symptoms occasionally. Recent medical care: The patient was seen recently at this facility. ( 04-27-20 for same; workup was done; UA nml; pelvic US showed IUP of 6w5d).REVIEW OF SYSTEMSNo fever, difficulty with urination, dark urine, headache or dizziness. No sore throat, cough, chest pain,difficulty breathing or excessive urination. No skin rash, jaundice, back pain, fainting episodes or blurredvision. Currently : LNMP: EDC: December 15 2020 7w2d In 1st trimester. Recentlydiagnosed. Recent sonogram showed intrauterine . G 3. P 2. All other systems reviewed andare negat milana.PAST HISTORYSee nurses notes. Problems: Discomfort of . Psoriasis. . Additional Surgeries: C- sections. Cellulitus. . Medications: 2 Clinical Report - Physicians/Mid Levels [facility] Emergency Department [address] [place] [address] Phone #: ext- [phone] 05/01/2020 18:40 Patient: LIANE FIGUEROA Sex: F : 1995 Age: 24y None. Allergies: No Known Drug Allergy.SOCIAL HISTORYNever smoker. No alcohol use or drug use.ADDITIONAL NOTESThe nursing notes have been reviewed with agreement regarding the chief complaint, HPI, ROS, PMH andpatient medications and allergies.PHYSICAL EXAMVital Signs: 05/01/2020 18:48 BP: 103/60. MAP: 74. HR: 90. RR: 16. O2 saturation: 99%. Temp: 97.3 F.Pain level now: 12/20. Have been reviewed. Oxygen saturation normal.Appearance: Alert. Oriented X3. No acute distress. (uncomfortable).Eyes: Pupils equal, round and reactive to light. Eyes normal inspection.ENT: Ears normal. Nose normal. Pharynx normal.Neck: Normal inspection. Neck supple.CVS: Normal heart rate and rhythm. H eart sounds normal. Pulses normal.Respiratory: No respiratory distress. Painless inspiration. Breath sounds normal.Abdomen: Soft and nontender. Bowel sounds normal. No organomegaly. No mass. Femoral pulsesequal.Back: Normal inspection.Skin: Skin warm and dry. Normal skin color. No rash. Normal skin turgor.Extremities: Extremities exhibit normal ROM. No lower extremity edema.Neuro: Oriented X 3. No motor deficit. No sensory deficit. Reflexes normal.LABS, X-RAYS, AND EKGLaboratory Tests: Laboratory tests have been ordered, with results reviewed and considered in themedical decision making process. Magnesium: (ELBERT: 05/01/2020 19:37) ( [facility]09[facility] Final results Test Result Flag Units (Reference) MAGNESIUM 1.9 MG/DL (1.7 - 2.2) CBC w Diff: (ELBERT: 05/01/2020 19:37) ( [facility] 05/01/2020 20:13) Final results Test Result Flag Units (Reference) CBC W/AUTOMATED DIFF COMPLETE BLOOD COUNT WBC 8.6 10/uL (4.2 - 11.0) RBC 4.91 10/uL (4.20 - 5.40) HEMOGLOBIN 12.9 g/dL (12.0 - 16.0) HEMATOCRIT 39.8 % (37.0 - 47.0) MCV 81.1 fL (81.0 - 101) MCH 26.3 L pg (27.0 - 34.0) MCHC 32.4 g/dL (31.0 - 36.0) RDW 15.1 H % (11.5 - 14.5) PLATELETS 256 10/uL (150 - 450) 3 Clinical Report - Physicians/Mid Levels [facility] Emergency Department [address] [place] [address] Phone #: ext- [phone] 05/01/2020 18:40 Patient: LIANE FIGUEROA Sex: F : 1995 Age: 24y MPV 11.0 H fL (7.4 - 10.4) NEUT 69.4 % (37.0 - 80.0) LYMPH 21.1 L % (25.0 - 40.0) MONO 6.3 % (3.0 - 8.0) EOS 2.0 % (0.0 - 7.0) BASO 0.9 % (0.0 - 2.5) %IG 0.3 H % (0.0 - 0.0) %NRBC 0.0 % (0.0 - 0.0) #NEUT 5.95 10/uL (2.00 - 6.90) #LYMPH 1.81 10/uL (0.60 - 3.40) #MONO 0.54 10/uL (0.00 - 0.90) #EOS 0.17 10/uL (0.00 - 0.70) #BASO 0.08 10/uL (0.00 - 0.20) #IG 0.03 10/uL (0.00 - 0.10) #NRBC 0.00 10/uL (0.00 - 0.00) MANUAL DIFF NOT INDICATED RBC MORPH NOT INDICATEDCMP: (ELBERT: 05/01/2020 19:37) ( MsgRcvd 05/01/2020 20:14) Final results Test Result Flag Units (Reference) COMPREHENSIVE METABOLIC PANEL COMPREHENSIVE METABOLIC PANEL SODIUM 138 mEq/L (134 - 153) POTASSIUM 3.5 L mEq/L (3.6 - 5.0) CHLORIDE 103 mEq/L (98 - 107) CO2 23 MEQ/L (22 - 30) GLUCOSE 99 MG/DL (65 - 110) BUN 6 L MG/DL (7 - 21) CREATININE 0.6 L MG/DL (0.7 - 1.5) BUN/CREAT 10 (8 - 27) TOTAL PROTEIN 7.2 G/DL (6.3 - 8.2) ALBUMIN 4.5 G/DL (3.9 - 5.0) GLOBULIN 2.7 GM/DL (2.4 - 3.2) A/G RATIO 1.7 (0.8 - 2.0) CALCIUM 9.6 MG/DL (8.4 - 10.2) TOTAL BILI <0.7 MG/DL (0.2 - 1.3) ALKALINE PHOS 61 U/L (38 - 126) SGOT/AST 16 U/L (5 - 40) SGPT/ALT 36 U/L (7 - 56) ANION GAP 12.0 mmol/L (8.0 - 16.0) AGE 24 yrs NON-AA GFR >60 mL/min AFR AMER GFR >60 mL/min Male GFR Interprentation 20-49 yrs >60 mL/min Iinkmc49-20 yrs >56 mL/min Normal 60-69 yrs >49 mL/min Normal 70-79yrs>42 mL/min Normal 80 and above >35 mL/min Normal Female GFRInterpretation 20-39 yrs >60 mL/min Normal 40-49 yrs >58 mL/minNormal 50-59 yrs >51 mL/min Normal 60-69 yrs >45 mL/min Rjmlbz75-23 yrs >39 mL/min Normal 80 and above >32 mL/min NormalLipase: (ELBERT: 05/01/2020 19:37) ( MsgRcvd 05/01/2020 20:08) Final results Test Result Flag Units (Reference) LIPASE 13 U/L (13 - 60)Beta-HCG, Quant Serum: (ELBERT: 05/01/2020 19:37) ( MsgRcvd 05/01/2020 20:35) Final results Test Result Flag Units (Reference) HCG QUANT 586153.0 mIU/mL 4 Clinical Report - Physicians/Mid Levels [facility] Emergency Department [address] [place] [address] Phone #: ext- [phone] 05/01/2020 18:40 Patient: LIANE FIGUEROA Sex: F : 1995 Age: 24y Interpretation: Less than 5 mU/mL: Negative 6-10 mU/mL: Borderline (suggest repeat in 48 hours) >10: Positive Approx HCG range (mU/mL) Weeks post LMP 5.4-708 mU/mL 3-4 Weeks 217- 35299 mU/mL 5-6 Weeks 4059-361693 mU/mL 7-8 Weeks 88233-024250 mU/mL 9-10 Weeks 14168-92406 mU/mL 12-14 Weeks 60530-85995 mU/mL 15-16 Weeks 8240-68158 mU/mL 17-18 Weeks.PROGRESS AND PROCEDURESCourse of Care: 19:34 05/01/20. UA on 04-27-20 was nml; pelvic US showed IUP 6w5d on same day 20:23 05/01/20. workup all in and reviewed and pretty much nml, mild hypoK at 3.5; pt started to vomit again 21:47 05/01/20. pt doing much better, no more vomiting in the ER, abdomen soft, no pain; py has 1st pre- visit in 2 days; will Rx Diclegis and Reglan; d/c instructions given. Patient counseled in person regarding the patient's stable condition, test results, diagnosis and need for follow-up. Patient agrees with plan of care. Disposition: Condition: good and stable. Discharge decision based on the following: patient's condition is stable; patient's condition is improved; patient is ambulatory; patient is active; patient drinking fluids; patient's pain is controlled; patient's exam is improved; no abnormal test results; improving condition on repeat evaluation; social support is good; transportation is available; follow-up is available; clinical impression is consistent with outpatient treatment.CLINICAL IMPRESSION Mild hyperemesis gravidarum less than 21 weeks ( 7+ weeks).INSTRUCTIONS Drink plenty of fluids. Avoid alcohol and NSAIDS. NSAIDS include aspirin, ibuprofen (Advil) and naproxen (Aleve). Avoid fatty, fried/greasy, lactose- containing (such as milk, cheese and ice cream), salty and spicy foods. No alcohol. Do not smoke. Warnings: Further evaluation is necessary. It is very important to follow up with a healthcare provider. GENERAL WARNINGS: Return or contact your physician immediately if your condition worsens or changes unexpectedly, if not improving as expected, or if other problems arise. SPECIFICALLY, return if you develop pain in the abdomen or back, fever, vomiting, the inability to keep fluids down, blood in vomitus, blood in diarrhea, fainting or lightheadedness. 5 Clinical Report - Physicians/Mid Levels [facility] Emergency Department [address] [place] [address] Phone #: ext- [phone] 05/01/2020 18:40 Patient: LIANE FIGUEROA Sex: F : 1995 Age: 24y Your Current Medications: . No home medication. Prescription Medications: Diclegis 10 mg-10 mg tablet,delayed release Take 2 tablet every night for 10 days -- Dispense 20 tablet. Refills: 2. Substitution permitted. [facility] [id number] ; [place] [address]. Phone: . Reglan 10 mg tablet Take 1 tablet four times a day as needed for 7 days -- Dispense 28 tablet. Refills: 2. Substitution permitted. Pharmacy - [facility] - [id number] [address] ; [place] [address]. . Follow-up: Return to the emergency department as needed. Follow up with an arc cutter in two days as scheduled. Reason for referral: evaluation and treatment. Summary of care provided to patient via paper. Understanding of the discharge instructions verbalized by patient. Expected course of illness, discharge instructions, activity level, diet, prescriptions x2, follow-up appointment and risks and benefits of treatment reviewed with patient and understanding verbalized. Agrees to plan of care.(Electronically signed by Tati Milner M.D. 05/01/2020 22:30) Name Value Range Interpretation Code Description Data Marilia rce(s) Supporting Document(s) ID Date Data Source [id number] 05/01/2020 08:34:00 PM EDT [facility] Name Value Range Interpretation Code Description Data Marilia rce(s) Supporting Document(s) Choriogonadotropin.intact [Units/volume] in Serum or Plasma 295978. 0 mIU/mL [facility] Interpr etation: Less than 5 mU/mL: Negative 6-10 mU/mL: Borderline (suggest repeat in 48 hours) >10: Positive Approx HCG range (mU/mL) Weeks post LMP 5.4-708 mU/mL 3-4 Weeks 217-93035 mU/mL 5-6 Weeks 4059-644804 mU/mL 7-8 Weeks 59691-091898 mU/mL 9-10 Weeks 09871-28768 mU/mL 12-14 Weeks 02061-56614 mU/mL 15-16 Weeks 8240- 20315 mU/mL 17-18 Weeks ID Date Data Source [id number] 05/01/2020 08:14:00 PM EDT [facility] Name Value Range Interpretation Code Description Data [facility] rce(s) Supporting Document(s) COMPREHENSIVE METABOLIC PANEL [facility] COMPREHENSIVE METABOLIC PANEL Sodium [Moles/volume] in Serum or Plasma 138 mEq/L 134 - 153 [facility] Potassium [Moles/volume] in Serum or Plasma 3.5 mEq/L 3.6 - 5.0 L [facility] Chloride [Moles/volume] in Serum or Plasma 103 mEq/L 98 - 107 [facility] Carbon dioxide, total [Moles/volume] in Serum or Plasma 23 MEQ/L 22 - 30 [facility] Glucose [Mass/volume] in Serum or Plasma 99 MG/DL 65 - 110 [facility] BUN 6 MG/DL 7 - 21 L [facility] Creatinine [Mass/volume] in Serum or Plasma 0.6 MG/DL 0.7 - 1.5 L [facility] BUN/CREAT 10 8 - 27 [facility] Protein [Mass/volume] in Serum or Plasma 7.2 G/DL 6.3 - 8.2 [facility] Albumin [Mass/volume] in Serum or Plasma 4.5 G/DL 3.9 - 5.0 [facility] Globulin [Mass/volume] in Serum by calculation 2.7 GM/DL 2.4 - 3.2 [facility] A/G RATIO 1.7 0.8 - 2.0 [facility] Calcium [Mass/volume] in Serum or Plasma 9.6 MG/DL 8.4 - 10.2 [facility] Bilirubin.total [Mass/volume] in Serum or Plasma <0.7 MG/DL 0.2 - 1.3 [facility] Alkaline phosphatase [Enzymatic activity/volume] in Serum or Plasma 61 U/L 38 - 126 [facility] Aspartate aminotransferase [Enzymatic activity/volume] in Serum or Plasma 16 U/L 5 - 40 [facility] Alanine aminotransferase [Enzymatic activity/volume] in Seru m or Plasma 36 U/L 7 - 56 [facility] Anion gap 3 in Serum or Plasma 12.0 mmol/L 8.0 - 16.0 [facility] AGE 24 yrs [facility] NON-AA GFR >60 mL/min [facility] ital AFR AMER GFR >60 mL/min [facility] Male GFR In terprentation 20-49 yrs >60 mL/min Normal 50-59 yrs >56 mL/min Normal 60-69 yrs >49 mL/min Normal 70-79yrs >42 mL/min Normal 80 and above >35 mL/min Normal Female GFR Interpretation 20-39 yrs >60 mL/min Normal 40-49 yrs >58 mL/min Normal 50-59 yrs >51 mL/min Normal 60-69 yrs >45 mL/min Normal 70-79 yrs >39 mL/min Normal 80 and above >32 mL/min Normal ID Date Data Source [id number] 05/01/2020 08:10:00 PM EDT [facility] Name Value Range Interpretation Code Description Data Marilia rce(s) Supporting Document(s) CBC W/AUTOMATED DIFF [facility] COMPLETE BLOOD COUNT Leukocytes [#/volume] in Blood by Automated count 8.6 10^3/uL 4.2 - 1 1.0 [facility] Erythrocytes [#/volume] in Blood by Automated count 4.91 10^6/uL 4. 20 - 5.40 [facility] Hemoglobin [Mass/volume] in Blood 12.9 g/dL 12.0 - 16.0 [facility] Hematocrit [Volume Fraction] of Blood by Automated count 39.8 % 3 7.0 - 47.0 [facility] Erythrocyte mean corpuscular volume [Entitic volume] by Auto mated count 81.1 fL 81.0 - 101 [facility] Erythrocyte mean corpuscular hemoglobin [Entitic mass] by Automated count 26.3 pg 27.0 - 34.0 L [facility] Erythrocyte mean corpuscular hemoglobin concentration [Mass/volume] by Automated count 32.4 g/dL 31.0 - 36.0 [facility] Erythrocyte distribution width [Ratio] by Automated count 15.1 % 11.5 - 14.5 H [facility] Platelets [#/volume] in Blood by Automated count 256 10^3/uL 150 - 45 0 [facility] Platelet mean volume [Entitic volume] in Blood by Automated count 11.0 fL 7.4 - 10.4 H [facility] Neutrophils/100 leukocytes in Blood by Automated count 69.4 % 37. 0 - 80.0 [facility] Lymphocytes/100 leukocytes in Blood by Manual count 21.1 % 25.0 - 40.0 L [facility] Monocytes/100 leukocytes in Blood by Automated count 6.3 % 3.0 - 8.0 [facility] Eosinophils/100 leukocytes in Blood by Automated count 2.0 % 0.0 - 7.0 [facility] Basophils/100 leukocytes in Blood by Automated count 0.9 % 0.0 - 2.5 [facility] %IG 0.3 % 0.0 - 0.0 H [facility] Hospit al %NRBC 0.0 % 0.0 - 0.0 [facility] al Neutrophils [#/volume] in Blood by Automated count 5.95 10^3/uL 2.00 - 6.90 [facility] Lymphocytes [#/volume] in Blood by Automated count 1.81 10^3/uL 0.60 - 3.40 [facility] Monocytes [#/volume] in Blood by Automated count 0.54 10^3/uL 0.00 - 0.90 [facility] Eosinophils [#/volume] in Blood by Automated count 0.17 10^3/uL 0.00 - 0.70 [facility] Basophils [#/volume] in Blood by Automated count 0.08 10^3/uL 0.00 - 0.20 [facility] #IG 0.03 10^3/uL 0.00 - 0.10 [facility] #NRBC 0.00 10^3/uL 0.00 - 0.00 [facility] MANUAL DIFF NOT INDICATED [facility] RBC MORPH NOT INDICATED [facility] ID Date Data Source [id number] 05/01/2020 08:08:00 PM EDT [facility] Name Value Range Interpretation Code Description Data Marilia rce(s) Supporting Document(s) Magnesium [Mass/volume] in Serum or Plasma 1.9 MG/DL 1.7 - 2.2 [facility] ID Date Data Source [id number] 05/01/2020 08:08:00 PM EDT [facility] Name Value Range Interpretation Code Description Data Marilia rce(s) Supporting Document(s) Lipase [Enzymatic activity/volume] in Serum or Plasma 13 U/L 13 - 60 [facility] ID Date Data Source [id number] 04/27/2020 06:07:00 PM EDT [facility] 1 OrderSheet [facility] Emergency Department [address] [place] [address] Phone #: ext- [phone] 04/27/2020 18:05 Patient: LIANE FIGUEROA Sex: F : 1995 Age: 24yWEIGHT:73.0 kg (S) HEIGHT:66 inches (S) BMI:26.0ALLERGIES: NoneCHIEF COMPLAINT: abd painDIAGNOSIS: O/E - dehydrated, HypokalemiaLAB ORDERSOrder Description Priority Entered Acknowledged InitialedCBC w Diff STAT 18:33 04/27/2020 18:37 Abigail Castañeda MD; seam closer, Chun ER [id number] STAT 18:33 04/27/2020 18:37 Abigail Castañeda MD; seam closer, Chun ER [id number] STAT 18:33 04/27/2020 18:37 Abigail Castañeda MD; seam closer, Chun ER [id number] (Clean STAT 18:33 04/27/2020 18:33 Ciro,Catch) Abigail Rodriguez MD; Cristina R.N.Magnesium STAT 18:40 04/27/2020 18:44 Arnav Tanner Norma MD; Cristina R.N.DIAGNOSTIC STUDY ORDERSOrder Description Priority Entered Acknowledged InitialedUS OB 1ST TRI UP STAT 18:33 04/27/2020 18:33 Ciro,TO 14 WEEKS Abigail Rodriguez MD; Cristina R.N.(Oxygen?(No))(IV?(Yes)) Reason for Study: abdominal painMEDICATION/IV/DRIP/FLUID ORDERSOrder Description Priority Entered Acknowledged InitialedIV NS 1000 mL 18:33 04/27/2020 18:45 Ciro,Bolus : Bolus 1000 Abigail Rodriguez MD; Cristina R.N.mL (X1)Zofran IVP 4 mg 18:33 04/27/2020 18:45 Arnav Tanner Norma MD; Cristina R.N.IV NS 1000 mL 19:53 04/27/2020 20:23 Ciro,Bolus : Bolus 1000 Abigail Rodriguez MD; Cristina R.N. 2 OrderSheet [facility] Emergency Department [address] [place] [address] Phone #: ext- [phone] 04/27/2020 18:05 Patient: LIANE FIGUEROA Sex: F : 1995 Age: 24ymL (X1)Potassium Chloride 19:54 04/27/2020 20:26 Ciro,Liquid PO 40 meq Abigail Rodriguez MD; Cristina Go(NOW x1)GENERAL ORDERSOrder Description Priority Entered Acknowledged Initialed[Electronically signed by Cristina Tanner R.N. (04/27/2020)][Electronically signed by Abigail Rodriguez MD (01:18 04/30/2020)][Electronically locked by Cristina Tanner R.N. (04/27/2020)] Name Value Range Interpretation Code Description Data Marilia rce(s) Supporting Document(s) ID Date Data Source [id number] 04/27/2020 06:07:00 PM EDT [facility] 1 Medication Reconciliation Report [facility] Emergency Department [address] [place] [address] Phone #: ext- [phone] 04/27/2020 18:05 Patient: LIANE FIGUEROA Sex: F : 1995 Age: 24yWeight: 73.0 kgHeight/Length: 66 in.BMI: 26.0ALLERGIES: NoneThe patient's Home Medications are listed below:NONE.The source(s) of the original Home Medication information:Not obtained.The following Medications were given to the patient in the Emergency Department:NS [IV] IV Fluids bolus 1000 mL wide open, administered: 04/27/2020 6:45:00 PMZofran [IVP] IVP 4 mg, administered: 04/27/2020 6:45:00 PMNS [IV] IV Fluids bolus 1000 mL wide open, administered: 04/27/2020 8:23:00 PMPOTASSIUM CHLORIDE LIQUID PO PO 40 meq, administered: 04/27/2020 8:26:00 PMThe following Medications were prescribed to the patient:None. Name Value Range Interpretation Code Description Data Marilia rce(s) Supporting Document(s) ID Date Data Source [id number] 04/27/2020 06:07:00 PM EDT [facility] 1 Medication Administration Record [facility] Emergency Department [address] [place] [address] Phone #: ext- [phone] 04/27/2020 18:05 Patient: LIANE FIGUEROA Sex: F : 1995 Age: 24yWeight: 73.0 kgHeight/Length: 66 inBMI: 26ALLERGIES: None Date/Time Medication Administered Medication OrderedStart NS [IV] IV NS 1000 mL Bolus : Bolus [id number] 04/27/2020 Dose: IV Fluids mL (X1)Cristina Tanner RAnastacio Bolus: 1000 mL wide open---- Dispensed: 1000 mL bagStop Site: #1 left wrist20:26 04/27/2020Cristina Tanner RAnastacioGiven ZOFRAN [IVP] (ONDANSETRON HCL) Zofran IVP 4 mg18:45 04/27/2020 Dose: 4 mg IVPMattCristina ludwig R.N. Site: #1 left wristStart NS [IV] IV NS 1000 mL Bolus : Bolus [id number] 04/27/2020 Dose: IV Fluids mL (X1)Cristina Tanner R.N. Bolus: 1000 mL wide open---- Dispensed: 1000 mL bagStop Site: #1 left wrist21:27 04/27/2020Cristina Tanner R.N.Given POTASSIUM CHLORIDE LIQUID PO Potassium Chloride Liquid PO 4020:26 04/27/2020 Dose: 40 meq Oral Suspension PO meq (NOW x1)Cristina Tanner R.N. Name Value Range Interpretation Code Description Data Marilia rce(s) Supporting Document(s) ID Date Data Source [id number] 04/27/2020 06:07:00 PM EDT [facility] 1 General Instructions [facility] Emergency Department [address] [place] [address] Phone #: ext- [phone] 04/27/2020 18:05 Patient: LIANE FIGUREOA Sex: F : 1995 Age: 24yMild dehydrationHypokalemiaINSTRUCTIONSNo strenuous activity.Your Current Medications: .No home medication.Understanding of the discharge instructions verbalized by patient. ADDITIONAL INFORMATIONDehydration (Adult)Dehydration occurs when your body loses too much fluid. This may be the result of prolongedvomiting or diarrhea, excessive sweating, or a high fever. It may also happen if you don't drinkenough fluid when you're sick or out in the heat. Misuse of diuretics (water pills) can also be a cause.Symptoms include thirst and decreased urine output. You may also feel dizzy, weak, fatigued, or verydrowsy. The diet described below is usually enough to treat dehydration. In some cases, you mayneed medicine.Home care Drink at least 12 8-ounce glasses of fluid every day to resolve the dehydration. Fluid may include water; orange juice; lemonade; apple, grape, or cranberry juice; clear fruit drinks; electrolyte replacement and sports drinks; and teas and coffee without caffeine. Don't drink alcohol. If you have been diagnosed with a kidney disease, ask your doctor how much and what types of fluids you should drink to prevent dehydration. If you have kidney disease, fluid can build up in the body. This can be dangerous to your health. If you have a fever, muscle aches, or a headache as a result of a cold or flu, you may take acetaminophen or ibuprofen, unless another medicine was prescribed. If you have chronic liver or kidney disease, or have ever had a stomach ulcer or gastrointestinal bleeding, talk with your healthcare provider before using these medicines. Don't take aspirin if you are younger than 18 2 General Instructions [facility] Emergency Department [address] [place] [address] Phone #: ext- [phone] 04/27/2020 18:05 Patient: LIANE FIGUEROA Sex: F : 1995 Age: 24y and have a fever. Aspirin raises the chance for severe liver injury.Follow-up careFollow up with your healthcare provider, or as advised.When to seek medical adviceCall your healthcare provider right away if any of these occur: Continued vomiting Frequent diarrhea (more than 5 times a day); blood (red or black color) or mucus in diarrhea Blood in vomit or stool Swollen abdomen or increasing abdominal pain Weakness, dizziness, or fainting Unusual drowsiness or confusion Reduced urine output or extreme thirst Fever of 100.4F (38C) or higher 4724-7920 [employer]. [address] [place] [address]. All rights reserved. This information is not intended as asubstitute for professional medical care. Always follow your healthcare professional's instructions.HypokalemiaHypokalemia means a low level of potassium in the blood. This most often occurs in people who takewater pills (diuretics). It can also occur because of severe vomiting or diarrhea. You may also have itif you take laxatives for long periods of time. It sometimes happens if you have low magnesium(hypomagnesemia). If you have this, your healthcare provider will treat the low magnesium first.A mild case of hypokalemia usually causes no symptoms. It is only found with blood testing. Moresevere potassium loss causes overall weakness, muscle or abdominal cramps, rapid or irregularheartbeats (heart palpitations), low blood pressure, and muscle weakness.Home care Take any potassium supplements as prescribed. Eat foods rich in potassium. The highest amount is found in avocado, baked potatoes, spinach, cantaloupe, cod, halibut, salmon, and scallops. White, red, or urias beans are also ve ry good sources. A modest amount of potassium is found in orange juice, bananas, carrots, 3 General Instructions [facility] Emergency Department [address] [place] [address] Phone #: ext- [phone] 04/27/2020 18:05 Patient: LIANE FIGUEROA Sex: F : 1995 Age: 24y and tomato juice. If you take certain types of diuretics, you will also need to take potassium supplements. If you take a diuretic, discuss potassium supplements with your doctor.Follow-up careFollow up with your healthcare provider for a repeat blood test within the next week, or as advised byour staff.When to seek medical adviceCall your healthcare provider right away if any of the following occur: Increased weakness, fatigue, or muscle cramps DizzinessCall 911Call 911 if any of the following occur: Irregular heartbeat, extra beats, or very fast heart rate Loss of consciousness [id number] [employer] [place] [address], [place] [address]. All rights reserved. This information is not intended as asubstitute for professional medical care. Always follow your healthcare professional's instructions. You have been given the following additional information: Dehydration (Adult) Hypokalemia No strenuous activity.(Electronically signed by Abigail Rodriguez MD 04/30/2020 01:18) Name Value Range Interpretation Code Description Data Marilia rce(s) Supporting Document(s) ID Date Data Source [id number] 04/27/2020 06:07:00 PM EDT [facility] 1 Clinical Report - Nurses [facility] Emergency Department [address] [place] [address] Phone #: ext- [phone] 04/27/2020 18:05 Patient: LIAEN FIGUEROA Sex: F : 1995 Age: 24yTRIAGEArrived by private vehicle. Historian: patient. Unaccompanied. ( 7 weeks with vomit).Acuity: LEVEL 3.Chief Complaint: ABDOMINAL PAIN and (vomit).Alert. No acute distress.This started last night. Onset. (1899). She has had vomiting.Treatment FRATERNITY ADVISER:None.SEPSIS SCREEN: SIRS Screen negative. Sepsis Screen negative. No suspected or confirmed signs ofinfection present. --18:24 04/27/20 Tracey Arzola R.N.18:21 04/27/20. BP: 130/66. MAP: 87. HR: 64. RR: 18. O2 saturation: 100% on room air. Temp: 98.2 F.Pain level now: 510. --18:24 04/27/20 Tracey Arzola R.N.Weight: 73 kg stated. Height/Length: 66 inches Per Patient. BMI: 26. --18:20 04/27/20 Tracey Arzola R.N.MedicationsNone. --18:22 04/27/20 Tracey Arzola R.N.AllergiesNone. --18:22 04/27/20 Tracey Arzola R.N.PROBLEMS:Psoriasis.. --18:22 04/27/20 Tracey Arzola R.N.ADDITIONAL SURGERIES: (X2).Elbow wash out. --18:22 04/27/20 Tracey Arzola R.N.HistoryPAST MEDICAL HX: Immunizations: up-to-date. Last normal menstrual period- March 10. 4. Para2. OB history: G 4; P 2.SOCIAL HX: Never smoker. No alcohol use or drug use. She was offered HIV testing but declined andhepatitis C testing but declined. She has not traveled outside the [place]Infectious disease exposure: No infectious disease exposure. Patient is not a known carrier of tuberculosis,hepatitis, HIV, MRSA or VRE. Patient is not a known carrier of CRE. 2 Clinical Report - Nurses [facility] Emergency Department [address] [place] [address] Phone #: ext- [phone] 04/27/2020 18:05 Patient: LIANE FIGUEROA Sex: F : 1995 Age: 24y SELF HARM ASSESSMENT: Self harm assessment was performed. The patient answered "no" to the question(s) "Have you recently felt down, depressed, or hopeless?", "Do you have thoughts of harming or killing yourself?", "Do you have a plan for harming or killing yourself?", "Have you recently had thoughts about harming or killing others?", "Do you have any dangerous items in your possession?", "Have you noticed less interest or pleasure in doing things?", "Are you here because you tried to hurt yourself?" and "Have you ever tried to hurt yourself before today?". ABUSE ASSESSMENT: Abuse assessment. Abuse denied. No suspicion of abuse. No report of abuse. NUTRITIONAL RISK ASSESSMENT: The nutritional risk assessment revealed no deficiencies. FUNCTIONAL ASSESSMENT: Functional assessment: no impairments noted. LEARNING NEEDS ASSESSMENT: The learning needs assessment revealed no barriers. FALL RISK ASSESSMENT: Fall risk assessment completed. No risk factors identified. SKIN INTEGRITY ASSESSMENT: Skin integrity risk assessment completed. No skin integrity risk identified. --18:24 04/27/20 Tracey Arzola R.N. Interventions Identification band on patient. To treatment room. --18:24 04/27/20 Tracey Arzola R.N.PHYSICAL ASSESSMENTGENERAL / NEURO / PSYCH: Alert. Oriented X 4.RESPIRATORY: Respirations not labored.GI / : Abdomen soft and nontender. Bowel sounds within normal limits.EXTREMITIES: No lower extremity edema.SKIN: Skin is warm and dry. --18:49 04/27/20 Cristina Tanner R.N.NURSING PROGRESS NOTESPatient gowned. Reassurance given. Two patient identifiers checked. Call light placed in reach. Siderails up x 2. Bed placed in lowest position. Patient ready for evaluation- ED physician and PA notified.--18:24 04/27/20 Tracey Arzola R.N. 18:45 04/27/2020 Site #1 started via IV in the left wrist with an 20g angiocath, with aseptic technique and good blood return; one attempt. Saline lock flushed with 10 mL saline. --18:45 04/27/20 Cristina Tanner R.N. 18:45 04/27/2020 Started bag #1 1000 mL IV Fluids NS; bolus of 1000 mL wide open via site #1 via IV pump. Allergies verified and confirmed 5 rights. IV patency established. IV site checked: no pain, redness, or swelling. IV flushed thoroughly pre- and post-medication administration. Information reviewed with patient. Verbalizes understanding. --18:45 04/27/20 Cristina Tanner R.N. 3 Clinical Report - Nurses [facility] Emergency Department [address] [place] [address] Phone #: ext- [phone] 04/27/2020 18:05 Patient: LIANE FIGUEROA Sex: F : 1995 Age: 24y 18:45 04/27/2020 Zofran (Ondansetron HCl) IVP 4 mg given over 5 minute(s) via site #1. Allergies verified and confirmed 5 rights. IV patency established. IV site checked: no pain, redness, or swelling. IV flushed thoroughly pre- and po st-medication administration. Information reviewed with patient. Verbalizes understanding. --18:45 04/27/20 Cristina Tanner R.N. 20:23 04/27/2020 Started bag #1 1000 mL IV Fluids NS; bolus of 1000 mL wide open via site #1 via IV pump. Allergies verified and confirmed 5 rights. IV patency established. IV site checked: no pain, redness, or swelling. IV flushed thoroughly pre- and post- medication administration. Information reviewed with patient. Verbalizes understanding. --20:04/27/20 Cristina Tanner R.N. 20:04/27/2020 POTASSIUM CHLORIDE LIQUID PO PO Oral Suspension 40 meq given. Allergies verified and confirmed 5 rights. Information reviewed with patient. Verbalizes understanding. --20:04/27/20 Cristina Tanner R.N. 20:04/27/2020 IV Fluids NS via IV site #1 Discontinued. Total amount infused: 1000 mL. IV patency established. IV site checked: no pain, redness, or swelling. IV flushed thoroughly. --20:04/27/20 Cristina Tanner R.N. 21:04/27/2020 IV Fluids NS via IV site #1 Discontinued. Total amount infused: 1000 mL. IV patency established. IV site checked: no pain, redness, or swelling. IV flushed thoroughly. --:04/27/20 Cristina Tanner R.N.DISPOSITION / DISCHARGE Departure time: :04/27/2020. No learning barriers present. Discharge instructions provided and reviewed with the patient. Reviewed diet. Patient verbalized understanding. Written instructions provided in Armenian. The patient was discharged home. She left ambulatory and via private vehicle. Patient driving. --:04/27/20 Cristina Tanner R.N. 21:04/27/20. BP: 109/76. HR: 55. RR: 16. O2 saturation: 99%. Temp: 97.8 F. Pain level now 0/10. --21:04/27/20 Cristina Tanner R.N.Locked/Released at 04/27/2020 21:28 by Cristina Tanner R.N. Name Value Range Interpretation Code Description Data Marilia rce(s) Supporting Document(s) ID Date Data Source [id number] 04/27/2020 06:07:00 PM EDT [facility] 1 Clinical Report - Physicians/Mid Levels [facility] Emergency Department [address] [place] [address] Phone #: ext- [phone] 04/27/2020 18:05 Patient: LIANE FIGUEROA Sex: F : 1995 Age: 24y Arrived- By private vehicle. Historian- patient. Disposition decision: 21:12 04/27/2020.HISTORY OF PRESENT ILLNESS Chief Complaint: vomiting. This started today and is still present. No contractions, pelvic pain, vaginal bleeding or discharge or complaint of leakage of fluid. (pt is a who presents for evaluation of her nausea/vomiting. she states that she has mild abdominal cramps which are primarily during her vomiting episodes. she states she feels slightly dizzy. she denies any vaginal bleeding, diarrhea). Similar symptoms previously. Recent medical care: Not recently seen/assessed.REVIEW OF SYSTEMSThe patient has had nausea. She has had vomiting, nausea and vomiting. No diarrhea, black stools orstools, bloody stools or headache. No double vision or vision, fainting episodes, fever or eye discomfort.No eye discharge, sore throat or throat, cough or difficulty breathing. No chest pain or pain, skin rash,chills or joint pain. No chills, fever, ear drainage, nasal congestion or sinus pain. No calf pain, cough,difficulty breathing, constipation or diarrhea. No hematuria, back pain, neck pain, headache or diabeticsymptoms. No easy bruising, difficulty with urination or anxiety. She has had abdominal pain (crampsduring vomiting).PAST HISTORYSee nurses notes. Problems: . Additional Surgeries: . Elbow wash out. Medications: None. Allergies: None.SOCIAL HISTORYNo alcohol use or drug use. 2 Clinical Report - Physicians/Mid Levels [facility] Emergency Department [address] [place] [address] Phone #: ext- [phone] 04/27/2020 18:05 Patient: LIANE FIGUEROA Sex: F : 1995 Age: 24yADDITIONAL NOTESThe nursing notes have been reviewed.PHYSICAL EXAMVital Signs: 04/27/2020 18:21 BP: 130/66. MAP: 87. HR: 64. RR: 18. O2 saturation: 100% on room air.Temp: 98.2 F. Pain level now: 10. Have been reviewed and appear to be correct. Hypertensive.Mean arterial pressure- normal. Heart rate normal. Respiratory rate normal. Temperature normal.Oxygen saturation normal.Appearance: Alert. Oriented X3. No acute distress.HEENT: Normal external inspection.ENT: Pharynx normal.Neck: Neck supple.CVS: Heart sounds normal.Respiratory: No respiratory distress. Painless inspiration. Breath sounds normal. Chest nontender.Abdomen: Soft and nontender. Bowel sounds normal. No m ass.Back: Normal external inspection.Skin: Skin warm and dry. Normal skin color. No rash. Normal skin turgor.Extremities: Extremities nontender. No pathologic edema.Neuro: Oriented X 3. Mood/affect normal. No motor deficit.LABS, X-RAYS, AND EKGLaboratory Tests: US OB TRANSVAGINAL NAS: (ELBERT: 04/27/2020 19:08) ( MsgRcvd 04/27/2020 20:54) In Progress US TRANSVAGINAL NAS REASON FOR OBS: ABDOMINAL PAIN TRANSPORTATION: A IV? N O2? N STATUS: YES ISOLATION N Magnesium: (ELBERT: 04/27/2020 18:47) ( MsgRcvd 04/27/2020 19:16) Final results Test Result Flag Units (Reference) MAGNESIUM 1.8 MG/DL (1.7 - 2.2) CBC w Diff: (ELBERT: 04/27/2020 18:47) ( MsgRcvd 04/27/2020 18:57) Final results Test Result Flag Units (Reference) CBC W/AUTOMATED DIFF COMPLETE BLOOD COUNT WBC 9.2 10/uL (4.2 - 11.0) RBC 4.62 10/uL (4.20 - 5.40) HEMOGLOBIN 12.1 g/dL (12.0 - 16.0) HEMATOCRIT 37.7 % (37.0 - 47.0) MCV 81.6 fL (81.0 - 101) MCH 26.2 L pg (27.0 - 34.0) MCHC 32.1 g/dL (31.0 - 36.0) RDW 15.5 H % (11.5 - 14.5) PLATELETS 220 10/uL (150 - 450) MPV 11.0 H fL (7.4 - 10.4) NEUT 61.8 % (37.0 - 80.0) 3 Clinical Report - Physicians/Mid Levels [facility] Emergency Department [address] [place] [address] Phone #: ext- [phone] 04/27/2020 18:05 Patient: LIANE FIGUEROA Sex: F : 1995 Age: 24y LYMPH 20.5 L % (25.0 - 40.0) MONO 5.7 % (3.0 - 8.0) EOS 11.0 H % (0.0 - 7.0) BASO 0.7 % (0.0 - 2.5) %IG 0.3 H % (0.0 - 0.0) %NRBC 0.0 % (0.0 - 0.0) #NEUT 5.69 10/uL (2.00 - 6.90) #LYMPH 1.89 10/uL (0.60 - 3.40) #MONO 0.52 10/uL (0.00 - 0.90) #EOS 1.01 H 10/uL (0.00 - 0.70) #BASO 0.06 10/uL (0.00 - 0.20) #IG 0.03 10/uL (0.00 - 0.10) #NRBC 0.00 10/uL (0.00 - 0.00) MANUAL DIFF NOT INDICATED RBC MORPH NOT INDICATEDCMP: (ELBERT: 04/27/2020 18:47) ( MsgRcvd 04/27/2020 19:32) Final results Test Result Flag Units (Reference) COMPREHENSIVE METABOLIC PANEL COMPREHENSIVE METABOLIC PANEL SODIUM 136 mEq/L (134 - 153) POTASSIUM 3.4 L mEq/L (3.6 - 5.0) CHLORIDE 103 mEq/L (98 - 107) CO2 21 L MEQ/L (22 - 30) GLUCOSE 96 MG/DL (65 - 110) BUN 4 L MG/DL (7 - 21) CREATININE 0.6 L MG/DL (0.7 - 1.5) BUN/CREAT 7 L (8 - 27) TOTAL PROTEIN 6.5 G/DL (6.3 - 8.2) ALBUMIN 4.3 G/DL (3.9 - 5.0) GLOBULIN 2.2 L GM/DL (2.4 - 3.2) A/G RATIO 2.0 (0.8 - 2.0) CALCIUM 9.0 MG/DL (8.4 - 10.2) TOTAL BILI <0.7 MG/DL (0.2 - 1.3) ALKALINE PHOS 54 U/L (38 - 126) SGOT/AST 12 U/L (5 - 40) SGPT/ALT 11 U/L (7 - 56) ANION GAP 12.0 mmol/L (8.0 - 16.0) AGE 24 yrs NON-AA GFR >60 mL/min AFR AMER GFR >60 mL/min Male GFR Interprentation 20-49 yrs >60 mL/min Kyrokb87-91 yrs >56 mL/min Normal 60-69 yrs >49 mL/min Normal 70-79yrs>42 mL/min Normal 80 and above >35 mL/min Normal Female GFRInterpretation 20-39 yrs >60 mL/min Normal 40-49 yrs >58 mL/minNormal 50-59 yrs >51 mL/min Normal 60-69 yrs >45 mL/min Cmzhrl84-54 yrs >39 mL/min Normal 80 and above >32 mL/min NormalLipase: (ELBERT: 04/27/2020 18:47) ( MsgRcvd 04/27/2020 19:16) Final results Test Result Flag Units (Reference) LIPASE 13 U/L (13 - 60)Urinalysis: (ELBERT: 04/27/2020 19:30) ( MsgRcvd 04/27/2020 19:59) Final results Test Result Flag Units (Reference) URINALYSIS URINALYSIS 4 Clinical Report - Physicians/Mid Levels [facility] Emergency Department [address] [place] [address] Phone #: ext- [phone] 04/27/2020 18:05 Patient: LIANE FIGUEROA Sex: F : 1995 Age: 24y SOURCE R COLOR yellow (NORMAL: Yello CLARITY clear (NORMAL: Clear SPEC GRAVITY 1.010 (1.001 - 1.030 pH 8 (5 - 9) GLUCOSE NORM (NORMAL: Negat BILIRUBIN NEG (NORMAL: Negat KETONE 15 A (NORMAL: Negat PROTEIN NEG (NORMAL: Negat NITRITE NEG (NORMAL: Negat BLOOD NEG (NORMAL: Negat LEUK EST NEG (NORMAL: Negat UROBILINOGEN NOR (less than 1.0 MICROSCOPIC Not Indicate US OB 1ST TRI UP TO 14 WEEKS: (ELBERT: 04/27/2020 18:33) ( MsgRcvd 04/27/2020 20:54) In Progress US OB 1ST TRI UP TO 14 WEEKS Reason(s): abdominal pain TRANSPORTATION: S IV? IV?(Yes) O2? Oxygen ?(No) Ro.PROGRESS AND PROCEDURESCourse of Care: pt is approx 8 weeks . she has not seen her ob doctor yet. she has her firstappt on 05/18. she states she has been vomiting. she has mild abdominal cramps during emesis. labsshow dehydration. mild hypokalemia. pt given po potassium and 2 L NS. pt felt better. urine shows noevidence of infection but has ketones. US shows iup 6 weeks 5 days. hr 130. I discussed results withpt. pt discharged. I encouraged pt to f/u with ob before 05/18. pt also encouraged to return if worse or anynew symptoms. 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 Patient/family counseled. Disposition: Discharged. Condition: good and stable.CLINICAL IMPRESSION Mild dehydration HypokalemiaINSTRUCTIONS No strenuous activity. Your Current Medications: . No home medication. 5 Clinical Report - Physicians/Mid Levels [facility] Emergency Department [address] [place] [address] Phone #: ext- [phone] 04/27/2020 18:05 Patient: LIANE FIGUEROA Sex: F : 1995 Age: 24y Understanding of the discharge instructions verbalized by patient.(Electronically signed by Abigail Rodriguez MD 04/30/2020 01:18) Name Value Range Interpretation Code Description Data Marilia rce(s) Supporting Document(s) ID Date Data Source [id number] 04/28/2020 03:15:00 [place] [address] PHONE: [phone] FAX: [phone] Name .................. : CAROLINA Pope Acct Number.................. : [id number] ROOM. ................. : [place] MR Number ................... : [id number] Stay type ............. : E/R Discharge Date......... ... : 04/27/20 Admit Date ......... : 04/27/20 Admit Phys .................... : COONEYNORM Date of ....... : 1995 Family Phys ................... : UNKNOWN Phone .................. : [phone] Age ................................ : 24 Film# .................. .:[id number] Sex ................................. : F Unsigned transcriptions are preliminary reports and do not represent a medical or legal document [place] [id number] COMPLETE:04/27/20 20:54 ADB [id number] (REASON FOR OBS: ABDOMINAL PAIN TR ANSVAGINAL OB ULTRASOUND: HISTORY: Abdominal pain. FINDINGS: There is a single viable intrauterine with mean gestational age of 6 weeks 5 days. EDC is 12/16/20. There are no abnormalities at the implantation site. There are 2 small Nabothian cysts noted. heart rate is 130 beats per minute. IMPRESSION: Single viable intrauterine with mean gestational age of 6 weeks 5 days. Electronically Reviewed and Signed By Tutu Ramachandran MD , 04/28/20 15:15, MRA Transcribe Initials: DZ , Transcribe Date: 04/28/20 01:28, Dictation Date: Copy for: EMERGENCY DEPT via modem Copy for: 710 MED REC DISCHARGED Page 1 of 1 Name Value Range Interpretation Code Description Data Marilia rce(s) Supporting Document(s) ID Date Data Source [id number] 04/28/2020 03:15:00 PM EDT [facility] [address] [place] [address] PHONE: [phone] FAX: [phone] Name .................. : CAROLINA LIANE Pope Acct Number.................. : [id number] ROOM. ................. : VT-02 Number ................... : [id number] Stay type ............. : E/R Discharge Date......... ... : 04/27/20 Admit Date ......... : 04/27/20 Admit Phys .................... : COONEYNORM Date of ....... : 1995 Family Phys ................... : UNKNOWN Phone .................. : [phone] Age ................................ : 24 Film# .................. .:[id number] Sex ................................. : F Unsigned transcriptions are preliminary reports and do not represent a medical or legal document US OB 1ST TRI UP TO 14 WEEKS 71538 COMPLETE:04/27/20 20:54 ADB [id number] Reason(s): abdominal pain TRANSABDOMINAL OB ULTRASOUND: HISTORY: Abdominal pain. COMPARISON: 04/18/20 FINDINGS: There is a single viable intrauterine with mean gestational age of 6 weeks 2 days. EDC is 12/19/20. heart rate is 130 beats per minute. IMPRESSION: Single viable intrauterine with mean gestational age of 6 weeks 2 days. Normal growth has occurred. Electronically Reviewed and Signed By Tutu Ramachandran MD , 04/28/20 15:15, MRA Transcribe Initials: MYRNA , Transcribe Date: 04/28/20 01:26, Dictation Date: Copy for: EMERGENCY DEPT via modem Copy for: 710 MED REC DISCHARGED Page 1 of 1 Name Value Range Interpretation Code Description Data Marilia rce(s) Supporting Document(s) ID Date Data Source [id number] 04/27/2020 07:59:00 PM EDT [facility] Name Value Range Interpretation Code Description Data Marilia rce(s) Supporting Document(s) [facility] SOURCE R [facility] COLOR yellow NORMAL: Yellow [facility] CLARITY clear NORMAL: Clear [facility] Specific gravity of Urine by Test strip 1.010 1.001 - 1.030 [facility] pH 8 5 - 9 [facility] Glucose [Mass/volume] in Urine by Test strip NORM NORMAL: Negat [facility] Bilirubin.total [Presence] in Urine by Test strip NEG NORMAL: Negative [facility] Ketones [Presence] in Urine by Test strip 15 NORMAL: Negative A [facility] Protein [Mass/volume] in Urine by Test strip NEG NORMAL: Negat [facility] Nitrite [Presence] in Urine by Test strip NEG NORMAL: Negative [facility] BLOOD NEG NORMAL: Negative [facility] Leukocyte esterase [Presence] in Urine by Test strip NEG ABIGAIL L: Negative [facility] Urobilinogen [Mass/volume] in Urine by Test strip NOR less jeromy n 1.0 mg/dL [facility] MICROSCOPIC Not Indicate [facility] ID Date Data Source [id number] 04/27/2020 07:32:00 PM EDT [facility] Name Value Range Interpretation Code Description Data Marilia rce(s) Supporting Document(s) COMPREHENSIVE METABOLIC PANEL [facility] COMPREHENSIVE METABOLIC PANEL Sodium [Moles/volume] in Serum or Plasma 136 mEq/L 134 - 153 [facility] Potassium [Moles/volume] in Serum or Plasma 3.4 mEq/L 3.6 - 5.0 L [facility] Chloride [Moles/volume] in Serum or Plasma 103 mEq/L 98 - 107 [facility] Carbon dioxide, total [Moles/volume] in Serum or Plasma 21 MEQ/L 22 - 30 L [facility] Glucose [Mass/volume] in Serum or Plasma 96 MG/DL 65 - 110 [facility] BUN 4 MG/DL 7 - 21 L [facility] Creatinine [Mass/volume] in Serum or Plasma 0.6 MG/DL 0.7 - 1.5 L [facility] BUN/CREAT 7 8 - 27 L [facility] Protein [Mass/volume] in Serum or Plasma 6.5 G/DL 6.3 - 8.2 [facility] Albumin [Mass/volume] in Serum or Plasma 4.3 G/DL 3.9 - 5.0 [facility] Globulin [Mass/volume] in Serum by calculation 2.2 GM/DL 2.4 - 3.2 L [facility] A/G RATIO 2.0 0.8 - 2.0 [facility] Calcium [Mass/volume] in Serum or Plasma 9.0 MG/DL 8.4 - 10.2 [facility] Bilirubin.total [Mass/volume] in Serum or Plasma <0.7 MG/DL 0.2 - 1.3 [facility] Alkaline phosphatase [Enzymatic activity/volume] in Serum or Plasma 54 U/L 38 - 126 [facility] Aspartate aminotransferase [Enzymatic activity/volume] in Serum or Plasma 12 U/L 5 - 40 [facility] Alanine aminotransferase [Enzymatic activity/volume] in Seru m or Plasma 11 U/L 7 - 56 [facility] Anion gap 3 in Serum or Plasma 12.0 mmol/L 8.0 - 16.0 [facility] AGE 24 yrs [facility] NON-AA GFR >60 mL/min [facility] AFR AMER GFR >60 mL/min [facility] Male GFR In terprentation 20-49 yrs >60 mL/min Normal 50-59 yrs >56 mL/min Normal 60-69 yrs >49 mL/min Normal 70-79yrs >42 mL/min Normal 80 and above >35 mL/min Normal Female GFR Interpretation 20-39 yrs >60 mL/min Normal 40-49 yrs >58 mL/min Normal 50-59 yrs >51 mL/min Normal 60-69 yrs >45 mL/min Normal 70-79 yrs >39 mL/min Normal 80 and above >32 mL/min Normal ID Date Data Source [id number] 04/27/2020 07:16:00 PM EDT [facility] Name Value Range Interpretation Code Description Data Marilia rce(s) Supporting Document(s) Magnesium [Mass/volume] in Serum or Plasma 1.8 MG/DL 1.7 - 2.2 [facility] ID Date Data Source [id number] 04/27/2020 07:16:00 PM T [facility] Name Value Range Interpretation Code Description Data Marilia rce(s) Supporting Document(s) Lipase [Enzymatic activity/volume] in Serum or Plasma 13 U/L 13 - 60 [facility] ID Date Data Source [id number] 04/27/2020 06:57:00 PM T [facility] Name Value Range Interpretation Code Description Data Marilia rce(s) Supporting Document(s) CBC W/AUTOMATED DIFF [facility] COMPLETE BLOOD COUNT Leukocytes [#/volume] in Blood by Automated count 9.2 10^3/uL 4.2 - 1 1.0 [facility] Erythrocytes [#/volume] in Blood by Automated count 4.62 10^6/uL 4. 20 - 5.40 [facility] Hemoglobin [Mass/volume] in Blood 12.1 g/dL 12.0 - 16.0 [facility] Hematocrit [Volume Fraction] of Blood by Automated count 37.7 % 3 7.0 - 47.0 [facility] Erythrocyte mean corpuscular volume [Entitic volume] by Auto mated count 81.6 fL 81.0 - 101 [facility] Erythrocyte mean corpuscular hemoglobin [Entitic mass] by Automated count 26.2 pg 27.0 - 34.0 L [facility] Erythrocyte mean corpuscular hemoglobin concentration [Mass/volume] by Automated count 32.1 g/dL 31.0 - 36.0 [facility] Erythrocyte distribution width [Ratio] by Automated count 15.5 % 11.5 - 14.5 H [facility] Platelets [#/volume] in Blood by Automated count 220 10^3/uL 150 - 45 0 [facility] Platelet mean volume [Entitic volume] in Blood by Automated count 11.0 fL 7.4 - 10.4 H [facility] Neutrophils/100 leukocytes in Blood by Automated count 61.8 % 37. 0 - 80.0 [facility] Lymphocytes/100 leukocytes in Blood by Manual count 20.5 % 25.0 - 40.0 L [facility] Monocytes/100 leukocytes in Blood by Automated count 5.7 % 3.0 - 8.0 [facility] Eosinophils/100 leukocytes in Blood by Automated count 11.0 % 0.0 - 7.0 H [facility] Basophils/100 leukocytes in Blood by Automated count 0.7 % 0.0 - 2.5 [facility] %IG 0.3 % 0.0 - 0.0 H [facility] al %NRBC 0.0 % 0.0 - 0.0 [facility] al Neutrophils [#/volume] in Blood by Automated count 5.69 10^3/uL 2.00 - 6.90 [facility] Lymphocytes [#/volume] in Blood by Automated count 1.89 10^3/uL 0.60 - 3.40 [facility] Monocytes [#/volume] in Blood by Automated count 0.52 10^3/uL 0.00 - 0.90 [facility] Eosinophils [#/volume] in Blood by Automated count 1.01 10^3/uL 0.00 - 0.70 H [facility] Basophils [#/volume] in Blood by Automated count 0.06 10^3/uL 0.00 - 0.20 [facility] #IG 0.03 10^3/uL 0.00 - 0.10 [facility] #NRBC 0.00 10^3/uL 0.00 - 0.00 [facility] MANUAL DIFF NOT INDICATED [facility] RBC MORPH NOT INDICATED [facility] ID Date Data Source [id number] 04/19/2020 09:15:00 AM EDT [facility] [address] [place] [address] PHONE: [phone] FAX: [phone] Name .................. : CAROLINA Pope Acct Number.................. : [id number] ROOM. ................. : TR-05 Number ................... : [id number] Stay type ............. : E/R Discharge Date......... ... : Admit Date ......... : 04/18/20 Admit Phys .................... : DEEPAK Date of ....... : 1995 Family Phys ................... : UNKNOWN Phone .................. : [phone] Age ................................ : 24 Film# .................. .:[id number] Sex ................................. : F Unsigned transcriptions are preliminary reports and do not represent a medical or legal document OB 1ST TRI UP TO 14 WEEKS 17636 COMPLETE:04/18/20 22:46 [facility] [address]17 Reason(s): Abd Pain FIRST TRIMESTER OB ULTRASOUND: INDICATION: Abdominal pain. FINDINGS: The uterus measures 4.3 x 5.8 x 7.9 cm. There is an intrauterine gestational sac. Based on mean sac diameter, the estimated gestational age is 5 weeks 4 days. No live is visualized. The bilateral ovaries are sonographically normal. IMPRESSION: Intrauterine gestational sac visualized. There is no evidence of a live at this time. This may be due to early . Consider follow up beta hCG levels and follow up ultrasound for further evaluation. Transvaginal technique may be required. Electronically Reviewed and Signed By Luis Mckoy M.D. , 04/19/20 09:15, RIY Transcribe Initials: MYRNA , Transcribe Date: 04/18/20 22:51, Dictation Date: Copy for: DEEPAK [facility]HE[facility] via fax Copy for: EMERGENCY DEPT via modem Copy for: 710 MED REC DISCHARGED Page 1 of 1 Name Value Range Interpretation Code Description Data Marilia rce(s) Supporting Document(s) ID Date Data Source [id number] 04/18/2020 09:32:00 PM EDT [facility] 1 OrderSheet [facility] Emergency Department [address] [place] [address] Phone #: ext- [phone] 04/18/2020 21:24 Patient: LIANE FIGUEROA Sex: F : 1995 Age: 24yWEIGHT:72.5 kg (S) HEIGHT:66 inches (S) BMI:25.8ALLERGIES: No Known Drug AllergyCHIEF COMPLAINT: pelvic pain, abd painDIAGNOSIS: Discomfort of pregnancyLAB ORDERSOrder Description Priority Entered Acknowledged InitialedCBC w Diff STAT 22: 020 22:37 Zo, January Alfonso BANKS;Chlamydia/GC STAT 22:14 04/18/2020 22:37 Zoss, January Alfonso BANKS; NOTES: urineCMP STAT 22:04/18/2020 22:37 Zo, January Alfonso BANKS;Culture, Urine STAT 22:04/18/2020 22:37 Zoss, January(Urine, Clean Alfonso Ross R.N.Catch) PA;Type Rh STAT 22:04/18/2020 22:37 Zo, January Alfonso BANKS;Urinalysis (Clean STAT 22:04/18/2020 22:37 Zoss, JanuaryCatch) Alfonso BANKS;HCG Serum Quant STAT 22:04/18/2020 22:37 Zo, January Alfonso BANKS;DIAGNOSTIC STUDY ORDERSOrder Description Priority Entered Acknowledged InitialedUS OB 1ST TRI UP STAT 22:14 04/18/2020 22:37 Zo, JanuaryTO 14 WEEKS Alfonso Ross R.N.(Oxygen?(No)) DARREN;(IV?(Yes)) Reason for Study: Abd Pain 2 OrderSheet [facility] Emergency Department [address] [place] [address] Phone #: ext- [phone] 04/18/2020 21:24 Patient: LIANE FIGUEROA Sex: F : 1995 Age: 24yMEDICATION/IV/DRIP/FLUID ORDERSOrder Description Priority Entered Acknowledged InitialedIV NS : Bolus 1000 22:14 04/18/2020 22:59 Mera,mL, then 150 mL/hr Alfonso BANKS;Zofran IVP 8 mg 22:14 04/18/2020 22:58 Alfonso Mera R.N.;GENERAL ORDERSOrder Description Priority Entered Acknowledged InitialedNPO 22:14 04/18/2020 22:37 Jennifer, Chana BANKS;Saline Lock 22:14 04/18/2020 22:57 Alfonso Mera R.N.;[Electronically signed by Alex Mera R.N. (00:11 04/19/2020)][Electronically signed by Alfonso Ross (06:58 04/19/2020)][Electronically locked by Alex Mera R.N. (00:11 04/19/2020)] Name Value Range Interpretation Code Description Data Marilia rce(s) Supporting Document(s) ID Date Data Source [id number] 04/18/2020 09:32:00 PM EDT [facility] 1 Medication Reconciliation Report [facility] Emergency Department [address] [place] [address] Phone #: ext- [phone] 04/18/2020 21:24 Patient: LIANE FIGUEROA Sex: F : 1995 Age: 24yWeight: 72.5 kgHeight/Length: 66 in.BMI: 25.8ALLERGIES: No Known Drug AllergyThe patient's Home Medications are listed below:NONE.The source(s) of the original Home Medication information:Not obtained.The following Medications were given to the patient in the Emergency Department:Zofran [IVP] IVP 8 mg, administered: 04/18/2020 10:58:00 PMIV NS IV Fluids bolus 1000 mL wide open, administered: 04/18/2020 10:58:00 PMThe following Medications were prescribed to the patient:None. Name Value Range Interpretation Code Description Data Marilia rce(s) Supporting Document(s) ID Date Data Source [id number] 04/18/2020 09:32:00 PM EDT [facility] 1 Medication Administration Record [facility] Emergency Department [address] [place] [address] Phone #: [phone]- [phone] 04/18/2020 21:24 Patient: LIANE FIGUEROA Sex: F : 1995 Age: 24yWeight: 72.5 kgHeight/Length: 66 inBMI: 25.8ALLERGIES: No Known Drug Allergy Date/Time Medication Administered Medication OrderedStart IV NS IV NS : Bolus 1000 mL, then 21958:58 04/18/2020 Dose: IV Fluids mL/hrSAlex anderson R.N. Bolus: 1000 mL wide open---- Dispensed: 1000 mL bagStop Site: #1 left AC00:10 04/19/2020Alex Mera R.N.Given ZOFRAN [IVP] (ONDANSETRON HCL) Zofran IVP 8 mg22:58 04/18/2020 Dose: 8 mg IVPSAlex anderson R.N. Site: #1 left AC Name Value Range Interpretation Code Description Data Marilia rce(s) Supporting Document(s) ID Date Data Source [id number] 04/18/2020 09:32:00 PM EDT [facility] 1 General Instructions [facility] Emergency Department [address] [place] [address] Phone #: ext- [phone] 04/18/2020 21:24 Patient: LIANE FIGUEROA Sex: F : 1995 Age: 24yFirst trimester discomforts of - nausea and vomiting. Positive test in the emergencydepartment.INSTRUCTIONSDrink plenty of fluids.Warnings: GENERAL WARNINGS: Return or contact your physician immediately if your conditionworsens or changes unexpectedly, if not improving as expected, or if other problems arise. Specificallyreturn if pain, bleeding or fever.Your Current Medications: .No home medication.Follow-up:Follow up with do ctor OB.Understanding of the discharge instructions verbalized by patient.Follow-up with: [facility] Res[facility] Team [place], , , [address], , [place], [address] Follow up. Call for an appointment. Reason for referral: evaluation and treatment. Summary of careprovided to patient. ADDITIONAL INFORMATIONPregnancy 2 General Instructions [facility] Emergency Department [address] [place] [address] Phone #: ext- [phone] 04/18/2020 21:24 Patient: LIANE FIGUEROA Sex: F : 1995 Age: 24yYour exam today shows that you are . symptomsDuring your body's hormones change. This causes physical and emotional changes. Thisis normal. Knowing what to expect is important for your piece of mind and so you know when to seekhelp for a problem. Here are some of the most common symptoms: Morning sickness or nausea. This can happen any time of the day or night. Tender, swollen breasts Need to urinate frequently Tiredness or fatigue Dizziness Indigestion or heartburn Food cravings or turn-offs Constipation Emotional changes. This can range from anxiety to excitement to depression.General care for a healthy pregnancyHere are things you can do to help make sure your baby is born healthy: 3 General Instructions [facility] Emergency Department [address] [place] [address] Phone #: ext- [phone] 04/18/2020 21:24 Patient: LIANE FIGUEROA Sex: F : 1995 Age: 24y Rest when you feel tired. This is especially true in the later months of . Drink more fluids. Your body needs more fluids than you may be used to. Drink 8 to10 glasses of juice, milk, or water every day. Eat well-balanced meals. Eat at regular times to give your body enough protein. You can expect to gain about 30 pounds during the . Don't try to diet or lose weight while you are . Take a vitamin every day. This helps you meet the extra nutritional needs of . Don't take any other medicine during your unless your healthcare provider tells you to. This includes prescription medicines and those you buy over the counter. Many medicines can harm the growing baby. If you have nausea or vomiting, don't eat greasy or fried foods. Eat several smaller meals throughout the day rather than 3 large meals. If you smoke, you must stop. The nicotine you breathe in goes right to the baby. Stay away from alcohol, even in moderate amounts. Daily drinking will harm your baby and can cause permanent brain damage. Don't use recreational drugs, especially cocaine, crack, and heroin. These will harm your baby. Also avoid marijuana. If you were using recreational drugs or prescribed medicine when you found out that you were , talk with your healthcare provider about possible effects on your growing baby. If you have medical problems that you need to take medicine for, talk with your healthcare provider.Follow-up careCall your healthcare provider to arrange for care. care is important. You can seeyour family provider, a specialist (arc cutter), or a primary care clinic.When to seek medical adviceCall your healthcare provider right away if any of these occur: Vaginal bleeding Pain in your belly (abdomen) or back that is moderate or severe Lots of vomiting, or you can't keep any fluids down for 6 hours 4 General Instructions [facility] Emergency Department [address] [place] [address] Phone #: ext- [phone] 04/18/2020 21:24 Patient: LIANE FIGUEROA Sex: F : 1995 Age: 24y Burning feeling when you urinate Headache, dizziness, or rapid weight gain Fever Vision changes or blurred vision [id number] [employer] [place] [address]. All rights reserved. This information is not intended as asubstitute for professional medical care. Always follow your healthcare professional's instructions.Established , Normal SymptomsYou are and are having symptoms that worry you. During , it's normal to havemany kinds of symptoms. Here is a list of common symptoms that happen during .Head and mouth 5 General Instructions [facility] Emergency Department [address] [place] [address] Phone #: ext- [phone] 04/18/2020 21:24 Patient: LIANE FIGUEROA Sex: F : 1995 Age: 24y Bleeding gums Dizziness and fainting Extra saliva Headaches Nosebleeds Skin color changes on your face Stuffy nose Mild blurriness of vision, especially if you wear contact lensesBreasts Darkening of nipples Yellow or white discharge from the nipples Sore breasts and nipples Swollen breastsBack, arms, and legs Back, hip, or thigh pain Leg cramps that come and go Numbness and tingling in your hands and fingers Swollen hands, legs, and feet Swollen leg veinsBelly (abdomen) and pelvis Constipation Feeling of pressure on your bladder and stomach Need to urinate often Gas and bloating Heartburn Anal itching, swelling, and bleeding (hemorrhoids) 6 General Instructions [facility] Emergency Department [address] [place], [place] [address] Phone #: ext- [phone] 04/18/2020 21:24 Patient: LIANE FIGUEROA Sex: F : 1995 Age: 24y Leaking urine Mild pressure or cramping in your belly Nausea and vomiting throughout the day or night (morning sickness) Swollen belly Clear to whit e vaginal dischargeOther symptoms Dry, itchy skin Forgetfulness Less interest in sex Mood swings Tiredness Trouble sleepingHome careHere is information that may help relieve some common symptoms.Sore and swollen breasts Wear a support bra that fits properly.Nausea and indigestion Eat smaller meals or snacks more often. Eat bland foods, such as bananas, crackers, or rice. Stay away from spicy, fatty, or fried foods. Stay away from alcohol, caffeine, and tobacco. Don't lie down right after eating. Raise your head with pillows when you lie down. Eat foods or beverages that have nat. If you drink nat clari, be sure to make sure it has real nat and not just nat flavoring. 7 General Instructions [facility] Emergency Department [address] [place] [address] Phone #: ext- [phone] 04/18/2020 21:24 Patient: LIANE FIGUEROA Sex: F : 1995 Age: 24yLeg swelling and varicose veins Wear elastic support hose. Put your feet up as often as possible.Constipation Eat more fresh fruits and vegetables and more whole grains. Drink more clear liquids.Joint and muscle pains Avoid heavy lifting. Pick things up by bending at your knees, not at your waist. Use acetaminophen for joint and muscle pain. Don't use aspirin, ibuprofen, or naproxen.Mouth and nose dryness or bleeding Drink more liquids. Use a vaporizer or humidifier in your bedroom.Don't take medicines or use remedies that your healthcare provider hasn't approved. If you havesymptoms that are severe or sudden, call your healthcare provider.Call 911Call 911 if any of these occur: New chest, arm, shoulder, neck, or upper back pain Trouble breath ing Severe belly pain or very heavy bleeding Severe lightheadedness, passing out, or fainting Rapid heart rate Confusion or difficulty waking upWhen to seek medical adviceCall your healthcare provider right away if any of these occur: Burning or pain when you urinate Depression or severe anxiety Desire to eat or drink nonfood items such as paper, dirt, or cleaning products Diarrhea that lasts more than 24 hours 8 General Instructions [facility] Emergency Department [address] [place] [address] Phone #: ext- [phone] 04/18/2020 21:24 Patient: LIANE FIGUEROA Sex: F : 1995 Age: 24y Fast heartbeat or heart palpitations Fever of 100.4F (38C) or higher, or as directed by your healthcare provider You can't keep fluids down for 6 hours without vomiting Severe or ongoing vomiting Little or no urine Major vision changes Moderate or severe belly pain Severe back pain Severe constipation Severe cramping or swelling in a leg, especially if it's just on one side Severe headache Sudden swelling of your face, hands, feet, or ankles Vaginal bleeding Very itchy skin that doesn't get better [id number] [employer]. [address] [place] [address]. All rights reserved. This information is not intended as asubstitute for professional medical care. Always follow your healthcare professional's instructions. You have been given the following additional information: , New Dx , Established, Normal Symptoms(Electronically signed by DARREN Mcmahan 04/19/2020 06:58) Name Value Range Interpretation Code Description Data Marilia rce(s) Supporting Document(s) ID Date Data Source [id number] 04/18/2020 09:32:00 PM EDT [facility] 1 Clinical Report - Nurses [facility] Emergency Department [address] [place] [address] Phone #: ext- [phone] 04/18/2020 21:24 Patient: LIANE FIGUEROA Sex: F : 1995 Age: 24yTRIAGEHistorian: patient.Triage time: 21:25 04/18/2020. Acuity: LEVEL 3.Chief Complaint: NAUSEA and VOMITING.Alert. No acute distress.( pt present with n/v today, states early in . pt c/o dizziness with standing.).SEPSIS SCREEN: Sepsis Screen negative. No suspected or confirmed signs of infection present. --21:January, R.N.21:24 04/18/20. BP: 124/74. MAP: 90. HR: 80. RR: 16. O2 saturation: 100%. Temp: 98.7 F. Pain levelnow: 0/10. --21:28 04/18/20January, R.N.Weight: 72.5 kg stated. Height/Length: 66 inches Per Patient. BMI: 25.8. --21:24 04/18/20January, R.N.MedicationsNone. --21:04/18/20January, R.N.AllergiesNo Known Drug Allergy. --21:25 04/18/20January, R.N.PROBLEMS:Psoriasis. --21:04/18/20 Jennifer, January, R.N.ADDITIONAL SURGERIES: (X2).Elbow wash out. --21:04/18/20, Chana, RHerminiaN.HistoryPAST MEDICAL HX: Last normal menstrual period- March 06. 4. Para 2. Abortions 1. Currently.SOCIAL HX: Never smoker. No alcohol use or drug use. She was offered HIV testing but declined. Shehas not traveled outside the [place]Infectious disease exposure: No infectious disease exposure. (covid screen neg). Patient is not a knowncarrier of tuberculosis, hepatitis, HIV, MRSA or VRE. Patient is not a known carrier of CRE .SELF HARM ASSESSMENT: Self harm assessment was performed. The patient answered "no" to thequestion(s) "Have you recently felt down, depressed, or hopeless?", "Do you have thoughts of harming orkilling yourself?", "Do you have a plan for harming or killing yourself?", "Have you recently had thoughts 2 Clinical Report - Nurses [facility] Emergency Department [address] [place] [address] Phone #: [phone]- [phone] 04/18/2020 21:24 Patient: LIANE FIGUEROA Sex: F : 1995 Age: 24y about harming or killing others?", "Do you have any dangerous items in your possession?", "Have you noticed less interest or pleasure in doing things?", "Are you here because you tried to hurt yourself?" and "Have you ever tried to hurt yourself before today?". ABUSE ASSESSMENT: Ab use assessment. yes. The patient had positive responses to the question(s) "Do you feel safe in your home?". No report of abuse. NUTRITIONAL RISK ASSESSMENT: The nutritional risk assessment revealed no deficiencies. FUNCTIONAL ASSESSMENT: Functional assessment: no impairments noted. LEARNING NEEDS ASSESSMENT: The learning needs assessment revealed no barriers. FALL RISK ASSESSMENT: Fall risk assessment completed. No risk factors identified. SKIN INTEGRITY ASSESSMENT: Skin integrity risk assessment completed. No skin integrity risk identified. --21:28 04/18/20 Chana Rodriguez, RAshwini. ABUSE ASSESSMENT: Abuse assessment. yes. The patient had positive responses to the question(s) "Do you feel safe in your home?". No suspicion of abuse. No report of abuse. --21:31 04/18/20 Jennifer January RAshwini. Interventions To treatment room. --21:28 04/18/20 Jennifer January RAshwini.PHYSICAL ASSESSMENTGENERAL / NEURO / PSYCH: Alert. Oriented X 4. Appears in no acute distress.HEENT: Mucous membranes are pink.RESPIRATORY: Respirations not labored. Breath sounds within normal limits.CVS: Normal sinus rhythm noted. Capillary refill less than 2 seconds.GI / : The patient has had nausea. Emesis noted. Has vomited several times (at home not in ED).Abdomen soft and nontender. Bowel sounds within normal limits. Normal genitalia.SKIN: Skin is warm and dry. --23:04 04/18/20 Alex Mera R.N.NURSING PROGRESS NOTESHead of bed elevated. Reassurance given. Two patient identifiers checked. Bed placed in lowestposition. Brakes of bed on. Patient ready for evaluation- PA notified. --21:28 04/18/20 Jennifer JanuaryDarryl. Patient returned by wheelchair with [employer]. (). --22:37 04/18/20 Kasia, JanuaryAbbi 22:58 04/18/2020 Site #1 started via IV in the left antecubital space with an 20g angiocath, with aseptic technique and good blood return; one attempt. Blood drawn: rainbow set and blood bank tube. Labeled in the presence of the patient and sent to the lab. Saline lock flushed with 10 mL saline. --22:58 04/18/20 Alex Mera R.N. 3 Clinical Report - Nurses [facility] Emergency Department [address] [place] [address] Phone #: ext- [phone] 04/18/2020 21:24 Patient: LIANE FIGUEROA Sex: F : 1995 Age: 24y22:58 04/18/2020 Zofran (Ondansetron HCl) IVP 8 mg given over 2 minute(s) via site # 1. Allergies verifiedand confirmed 5 rights. IV patency established. IV site checked: no pain, redness, or swelling. IV flushedthoroughly pre- and post- medication administration. IVP given by RN. Information reviewed with patientincluding reason for taking this medication, signs of allergic reaction and precautions. Verbalizesunderstanding. --22:58 04/18/20 Alex Mera R.N.22:58 04/18/2020 Started bag #1 1000 mL IV Fluids IV NS; bolus of 1000 mL wide open via site #1 via IVpump. Allergies verified and confirmed 5 rights. IV patency established. IV site checked: no pain, redness,or swelling. IV flushed thoroughly pre- and post-medication administration. Information reviewed withpatient including reason for taking this medication, signs of allergic reaction and precautions. Verbalizesunderstanding. --22:59 04/18/20 Alex Mera R.N.( warm blankets provided, pt feeling better, no vomiting since arrival, ivf infusing per pump, spouse atbedside. waiting on lab results.). --23:22 04/18/20 Chana Rodriguez R.N.23:24 04/18/20. BP: 109/64. MAP: 79. HR: 52. RR: 16. O2 saturation: 100%. Temp: 97.8 F. Pain levelnow: 0/10. --23:26 04/18/20 Alex Mera R.N.Head of bed elevated 30 degrees. Reassessment acuity: LEVEL 3.Rounding: Pain: assessed pain level. Position: states comfortable. Personal care / toileting: denies toiletingneeds and mouth care. Proximity of possessions / care items: call light within easy reach. Plug ins: assuredIV pump plugged in; checked status of equipment in use; located all cords, tubes, and lines to prevent fallhazard. Set expectations: advised patient of rounding protocol timing and asked if they needed anythingelse at this time. Overall patient status is improved- she states feels better.GI / : Abdomen soft and nontender. Bowel sounds within normal limits.SKIN: Skin is warm and dry. Skin color within normal limits. Two patient identifiers checked. Call lightplaced in reach. Side rails up x 2. Bed placed in lowest position. Brakes of bed on. --23:26 04/18/20Alex anderson R.N.23:28 04/18/2020 Zofran IVP Response: no adverse reaction pain is improving. Symptoms have improvedthe patient feels better. --23:28 04/18/20 Alex Mera R.N.00:04/19/2020 IV Fluids IV NS via IV site # 1 Response: no adverse reaction pain is improving.Symptoms have improved the patient feels better. --00:04/19/20 Alex Mera R.N.00:04/19/2020 Site #1 removed upon discharge. Pressure dressing and bandaid applied. --00: Alex Mera R.N.00:04/19/2020 IV Fluids IV NS via IV site #1 Discontinued: completed upon discharge. Total amountinfused: 1000 mL. IV patency established. IV site checked: no pain, redness, or swelling. IV flushedthoroughly. --00:04/19/20 Alex Mera R.N. 4 Clinical Report - Nurses [facility] Emergency Department [address] [place] [address] Phone #: ext- [phone] 04/18/2020 21:24 Patient: LIANE FIGUEROA Sex: F : 1995 Age: 24yDISPOSITION / DISCHARGE No learning barriers present. Discharge instructions provided and reviewed with the patient. Reviewed warnings. Reviewed medication(s). Treatments reviewed. Reviewed referrals. Patient and spouse verbalized understanding. Written instructions provided in Armenian. The patient was discharged by the physician learning support assistant. She was discharged home and accompan ied by spouse. She left ambulatory and via private vehicle. Spouse driving. Patient has no belongings. --00:11 04/19/20 Alex Mera R.N. 00:10 04/19/20. BP: 113/72. MAP: 85. HR: 60. RR: 16. O2 saturation: 100%. Temp: 98 F. Pain level now: 0. --00:11 04/19/20 Alex Mera R.N. Departure time: 00:11 04/19/2020. --00:11 04/19/20 Alex Mera R.N.Locked/Released at 04/19/2020 00:11 by Alex Mera R.N. Name Value Range Interpretation Code Description Data Marilia rce(s) Supporting Document(s) ID Date Data Source [id number] 04/18/2020 09:32:00 PM EDT [facility] 1 Clinical Report - Physicians/Mid Levels [facility] Emergency Department [address] [place] [address] Phone #: ext- [phone] 04/18/2020 21:24 Patient: LIANE FIGUEROA Sex: F : 1995 Age: 24y Time Seen: 22:00 04/18/2020. Arrived- By private vehicle. Historian- patient and family.HISTORY OF PRESENT ILLNESS Chief Complaint: PELVIC PAIN. ABDOMINAL PAIN Nausea and vomiting. This started today. She has had pelvic pain. Is still present. It was abrupt in onset. Last normal menstrual period- March 06. EDC is December. Gestational age is 6 weeks. (pt present with n/v today, states early in . pt c/o dizziness with standing.). Similar symptoms previously. Patient has had similar symptoms several times. Recent medical care: Not recently seen/assessed.REVIEW OF SYSTEMSThe patient has had nausea. She has had vomiting. No diarrhea, black stools, bloody stools, headacheor double vision. No fainting episodes, fever, eye discomfort, eye discharge or sore throat. No cough,difficulty breathing, chest pain, skin rash or chills. No joint pain.PAST HISTORYG 4; P 2; Ab 1. Problems: . Psoriasis. Additional Surgeries: . Elbow wash out. Medications: None. Allergies: No Known Drug Allergy.SOCIAL HISTORYNever smoker. No alcohol use or drug use.PHYSICAL EXAMVital Signs: 04/18/2020 21:24 BP: 124/74. MAP: 90. HR: 80. RR: 16. O2 saturation: 100%. Temp: 98.7 F. 2 Clinical Report - Physicians/Mid Levels [facility] Emergency Department [address] [place] [address] Phone #: ext- [phone] 04/18/2020 21:24 Patient: LIANE FIGUEROA Sex: F : 1995 Age: 24y Pain level now: 0/10. Have been reviewed as normal. Oxygen saturation normal. Appearance: Alert. Oriented X3. No acute distress. HEENT: Normal external inspection. ENT: Pharynx normal. Neck: Neck supple. CVS: Heart sounds normal. Respiratory: No respiratory distress. Breath sounds normal. Chest nontender. Abdomen: Soft. Mild tenderness diffusely. Bowel sounds normal. No mass. Back: Normal external inspection. Skin: Skin warm and dry. Normal skin color. No rash. Normal skin turgor. Extremities: Extremities nontender. No pathologic edema. Neuro: Oriented X 3.LABS, X-RAYS, AND EKGLaboratory Tests: Laboratory tests have been ordered, with results reviewed and considered in themedical decision making process. CBC w Diff: (ELBERT: 04/18/2020 22:55) ( MsgRcvd 04/18/2020 23:00) Final results Test Result Flag Units (Reference) C BC W/AUTOMATED DIFF COMPLETE BLOOD COUNT WBC 7.7 10/uL (4.2 - 11.0) RBC 5.04 10/uL (4.20 - 5.40) HEMOGLOBIN 13.2 g/dL (12.0 - 16.0) HEMATOCRIT 41.0 % (37.0 - 47.0) MCV 81.3 fL (81.0 - 101) MCH 26.2 L pg (27.0 - 34.0) MCHC 32.2 g/dL (31.0 - 36.0) RDW 15.4 H % (11.5 - 14.5) PLATELETS 245 10/uL (150 - 450) MPV 11.3 H fL (7.4 - 10.4) NEUT 56.1 % (37.0 - 80.0) LYMPH 34.0 % (25.0 - 40.0) MONO 5.8 % (3.0 - 8.0) EOS 3.0 % (0.0 - 7.0) BASO 1.0 % (0.0 - 2.5) %IG 0.1 H % (0.0 - 0.0) %NRBC 0.0 % (0.0 - 0.0) #NEUT 4.34 10/uL (2.00 - 6.90) #LYMPH 2.63 10/uL (0.60 - 3.40) #MONO 0.45 10/uL (0.00 - 0.90) #EOS 0.23 10/uL (0.00 - 0.70) #BASO 0.08 10/uL (0.00 - 0.20) #IG 0.01 10/uL (0.00 - 0.10) #NRBC 0.00 10/uL (0.00 - 0.00) MANUAL DIFF NOT INDICATED RBC MORPH NOT INDICATED CMP: (ELBERT: 04/18/2020 22:55) ( MsgRcvd 04/18/2020 23:17) Final results Test Result Flag Units (Reference) COMPREHENSIVE METABOLIC PANEL COMPREHENSIVE METABOLIC PANEL 3 Clinical Report - Physicians/Mid Levels [facility] Emergency Department [address] [place] [address] Phone #: ext- [phone] 04/18/2020 21:24 Patient: LIANE FIGUEROA Sex: F : 1995 Age: 24y SODIUM 136 mEq/L (134 - 153) POTASSIUM 3.7 mEq/L (3.6 - 5.0) CHLORIDE 103 mEq/L (98 - 107) CO2 22 ME Q/L (22 - 30) GLUCOSE 99 MG/DL (65 - 110) BUN 6 L MG/DL (7 - 21) CREATININE 0.6 L MG/DL (0.7 - 1.5) BUN/CREAT 10 (8 - 27) TOTAL PROTEIN 7.1 G/DL (6.3 - 8.2) ALBUMIN 4.6 G/DL (3.9 - 5.0) GLOBULIN 2.5 GM/DL (2.4 - 3.2) A/G RATIO 1.8 (0.8 - 2.0) CALCIUM 9.4 MG/DL (8.4 - 10.2) TOTAL BILI <0.7 MG/DL (0.2 - 1.3) ALKALINE PHOS 57 U/L (38 - 126) SGOT/AST 18 U/L (5 - 40) SGPT/ALT 17 U/L (7 - 56) ANION GAP 11.0 mmol/L (8.0 - 16.0) AGE 24 yrs NON-AA GFR >60 mL/min AFR AMER GFR >60 mL/min Male GFR Interprentation 20-49 yrs >60 mL/min Auldfu28-40 yrs >56 mL/min Normal 60-69 yrs >49 mL/min Normal 70-79yrs>42 mL/min Normal 80 and above >35 mL/min Normal Female GFRInterpretation 20-39 yrs >60 mL/min Normal 40-49 yrs >58 mL/minNormal 50-59 yrs >51 mL/min Normal 60-69 yrs >45 mL/min Iwdiev16-10 yrs >39 mL/min Normal 80 and above >32 mL/min NormalType Rh: (ELBERT: 04/18/2020 22:55) ( [facility] 04/18/2020 23:23) Final results Test Result Flag Units (Reference) ABO GROUP A RH TYPE POSITIVE { ABO/RH REENTER A POSITIVEUrinalysis: (ELBERT: 04/18/2020 22:21) ( [facility] 04/18/2020 22:38) Final results Test Result Flag Units (Reference) URINALYSIS URINALYSIS SOURCE R COLOR yellow (NORMAL: Yello CLARITY hazy (NORMAL: Clear SPEC GRAVITY 1.020 (1.001 - 1.030 pH 6 (5 - 9) GLUCOSE NORM (NORMAL: Negat BILIRUBIN NEG (NORMAL: Negat KETONE 50 A (NORMAL: Negat PROTEIN NEG (NORMAL: Negat NITRITE NEG (NORMAL: Negat BLOOD NEG (NORMAL: Negat LEUK EST NEG (NORMAL: Negat UROBILINOGEN NOR (less than 1.0 MICROSCOPIC Not IndicateBeta-HCG, Quant Serum: (ELBERT: 04/18/2020 22:55) ( [facility] 04/18/2020 23:31) Final results Test Result Flag Units (Reference) HCG QUANT 56408.0 mIU/mL 4 Clinical Report - Physicians/Mid Levels [facility] Emergency Department [address] [place] [address] Phone #: ext- [phone] 04/18/2020 21:24 Patient: LIANE FIGUEROA Sex: F : 1995 Age: 24y Interpretation: Less than 5 mU/mL: Negative6-10 mU/mL: Borderline (suggest repeat in 48 hours) >10: PositiveApprox HCG range (mU/mL) Weeks post LMP 5.4-708 mU/mL 3-4 Oyvjv918-63447 mU/mL 5-6 Weeks 4059-789988 mU/mL 7-8 Hpkih43801-867932 mU/mL 9-10 Weeks 34715-18813 mU/mL 12-14 Nokem40157-96263 mU/mL 15-16 Weeks 8240-61854 mU/mL 17-18 WeeksUS OB 1ST TRI UP TO 14 WEEKS: (ELBERT: 04/18/2020 22:14) ( MsgRcvd 04/18/2020 22:53) In ProgressUS OB 1ST TRI UP TO 14 WEEKSReason(s): Abd PainTRANSPORTATION: WC IV? IV?(Yes) O2? Oxygen?(No) Ro Exam US OB 1ST TRI UP TO 14 WEEKS [facility] [address] [place] [address] PHONE: [phone] FAX: [phone] Name .................. : CAROLINA Pope Acct Number.................. : [id number] ROOM. ................. : TR-05 Number ................... : [id number] Stay type ............. : E/R Discharge Date......... ... : Admit Date ......... : 04/18/20 Admit Phys ...... .............. : DEEPAK Date of ....... : 1995 Family Phys ................... : UNKNOWN Phone .................. : [phone] Age ................................ : 24 Film# .................. .:[id number] Sex ................................. : F Unsigned transcriptions are preliminary reports and do not represent a medical or legal document OB 1ST TRI UP TO 14 WEEKS [id number] COMPLETE:04/18/20 22:46 [facility] [id number] Reason(s): Abd Pain FIRST TRIMESTER OB ULTRASOUND: INDICATION: Abdominal pain. FINDINGS: The uterus measures 4.3 x 5.8 x 7.9 cm. There is an intrauterine gestational sac. Based on mean sac diameter, the estimated gestational age is 5 weeks 4 days. No live is visualized. The bilateral ovaries are sonographically normal. IMPRESSION: Intrauterine gestational sac visualized. There is no evidence of a live at this ti me. This may be due to early . Consider follow up beta hCG levels and follow up ultrasound for further evaluation. Transvaginal technique may be required. Electronically Reviewed and Signed By DCTNAME , SIGNDATE, [facility] Transcribe Initials: MYRNA , Transcribe Date: 04/18/20 22:51, Dictation Date: <<REPDIST>> 5 Clinical Report - Physicians/Mid Levels [facility] Emergency Department [address] [place] [address] Phone #: ext- [phone] 04/18/2020 21:24 Patient: LIANE FIGUEROA Sex: F : 1995 Age: 24y Page 1 of 1 . Note - Tests: (OB US- Intrauterine gestational sac visualized. There is no evidence of a live at this time. 5W4D. This may be due to early . Consider follow up beta hCG levels and follow up ultrasound for further evaluation.).PROGRESS AND PROCEDURESCourse of Care: 23:55 Apr 18 2020. Evaluat ion after observation. (Discussed risks, benefits, options andpt is agreeable with dx and tx plan.). Patient and spouse counseled in person regarding the patient's stable condition, test results, diagnosis and need for follow-up. Patient and spouse agrees with plan of care. 23:55 Apr 18 2020. Disposition: Discharged home in good and improved condition (23:56 Apr 18 2020).CLINICAL IMPRESSION First trimester discomforts of - nausea and vomiting. Positive test in the emergency department.INSTRUCTIONS Drink plenty of fluids. Warnings: GENERAL WARNINGS: Return or contact your physician immediately if your condition worsens or changes unexpectedly, if not improving as expected, or if other problems arise. Specifically return if pain, bleeding or fever. Your Current Medications: . No home medication. Follow-up: Follow up with doctor OB. Understanding of the discharge instructions verbalized by patient. [facility] with: [facility] Respective Team Manny [place], , , [id number] [address] 6 Clinical Report - Physicians/Mid Levels [facility] Emergency Department [address] [place] [address] Phone #: ext- [phone] 04/18/2020 21:24 Patient: LIANE FIGUEROA Sex: F : 1995 Age: 24y [place], , [place], [address] Follow up. Call for an appointment. Reason for referral: evaluation and treatment. Summary of care provided to patient.(Electronically signed by DARREN Mcmahan 04/19/2020 06:58) Name Value Range Interpretation Code Description Data Marilia rce(s) Supporting Document(s) ID Date Data Source [id number] 04/18/2020 11:31:00 PM EDT [facility] Name Value Range Interpretation Code Description Data Marilia rce(s) Supporting Document(s) Choriogonadotropin.intact [Units/volume] in Serum or Plasma 25142.0 mIU/mL [facility] Interpr etation: Less than 5 mU/mL: Negative 6-10 mU/mL: Borderline (suggest repeat in 48 hours) >10: Positive Approx HCG range (mU/mL) Weeks post LMP 5.4-708 mU/mL 3-4 Weeks 217-55078 mU/mL 5-6 Weeks 4059-703725 mU/mL 7-8 Weeks 58045-605951 mU/mL 9-10 Weeks 44166-28391 mU/mL 12-14 Weeks 60068-71423 mU/mL 15-16 Weeks 8240- 22066 mU/mL 17-18 Weeks ID Date Data Source [id number] 04/18/2020 11:23:00 PM EDT [facility] Name Value Range Interpretation Code Description Data Marilia rce(s) Supporting Document(s) ABO group [Type] in Blood A [facility] Rh [Type] in Blood POSITIVE [facility] { ABO/RH REENTER A POSITIVE ID Date Data Source [id number] 04/18/2020 11:17:00 PM EDT [facility] Name Value Range Interpretation Code Description Data Marilia rce(s) Supporting Document(s) COMPREHENSIVE METABOLIC PANEL [facility] COMPREHENSIVE METABOLIC PANEL Sodium [Moles/volume] in Serum or Plasma 136 mEq/L 134 - 153 [facility] Potassium [Moles/volume] in Serum or Plasma 3.7 mEq/L 3.6 - 5.0 [facility] Chloride [Moles/volume] in Serum or Plasma 103 mEq/L 98 - 107 [facility] Carbon dioxide, total [Moles/volume] in Serum or Plasma 22 MEQ/L 22 - 30 [facility] Glucose [Mass/volume] in Serum or Plasma 99 MG/DL 65 - 110 [facility] BUN 6 MG/DL 7 - 21 L [facility] Creatinine [Mass/volume] in Serum or Plasma 0.6 MG/DL 0.7 - 1.5 L [facility] BUN/CREAT 10 8 - 27 [facility] Protein [Mass/volume] in Serum or Plasma 7.1 G/DL 6.3 - 8.2 [facility] Albumin [Mass/volume] in Serum or Plasma 4.6 G/DL 3.9 - 5.0 [facility] Globulin [Mass/volume] in Serum by calculation 2.5 GM/DL 2.4 - 3.2 [facility] A/G RATIO 1.8 0.8 - 2.0 [facility] al Calcium [Mass/volume] in Serum or Plasma 9.4 MG/DL 8.4 - 10.2 [facility] Bilirubin.total [Mass/volume] in Serum or Plasma <0.7 MG/DL 0.2 - 1.3 [facility] Alkaline phosphatase [Enzymatic activity/volume] in Serum or Plasma 57 U/L 38 - 126 [facility] Aspartate aminotransferase [Enzymatic activity/volume] in Serum or Plasma 18 U/L 5 - 40 [facility] Alanine aminotransferase [Enzymatic activity/volume] in Seru m or Plasma 17 U/L 7 - 56 [facility] Anion gap 3 in Serum or Plasma 11.0 mmol/L 8.0 - 16.0 [facility] AGE 24 yrs [facility] al NON-AA GFR >60 mL/min [facility] ital AFR AMER GFR >60 mL/min [facility] spital Male GFR In terprentation 20-49 yrs >60 mL/min Normal 50-59 yrs >56 mL/min Normal 60-69 yrs >49 mL/min Normal 70-79yrs >42 mL/min Normal 80 and above >35 mL/min Normal Female GFR Interpretation 20-39 yrs >60 mL/min Normal 40-49 yrs >58 mL/min Normal 50-59 yrs >51 mL/min Normal 60-69 yrs >45 mL/min Normal 70-79 yrs >39 mL/min Normal 80 and above >32 mL/min Normal ID Date Data Source [id number] 04/18/2020 11:00:00 PM EDT [facility] Name Value Range Interpretation Code Description Data Marilia rce(s) Supporting Document(s) CBC W/AUTOMATED DIFF [facility] COMPLETE BLOOD COUNT Leukocytes [#/volume] in Blood by Automated count 7.7 10^3/uL 4.2 - 1 1.0 [facility] Erythrocytes [#/volume] in Blood by Automated count 5.04 10^6/uL 4. 20 - 5.40 [facility] Hemoglobin [Mass/volume] in Blood 13.2 g/dL 12.0 - 16.0 [facility] Hematocrit [Volume Fraction] of Blood by Automated count 41.0 % 3 7.0 - 47.0 [facility] Erythrocyte mean corpuscular volume [Entitic volume] by Auto mated count 81.3 fL 81.0 - 101 [facility] Erythrocyte mean corpuscular hemoglobin [Entitic mass] by Automated count 26.2 pg 27.0 - 34.0 L [facility] Erythrocyte mean corpuscular hemoglobin concentration [Mass/volume] by Automated count 32.2 g/dL 31.0 - 36.0 [facility] Erythrocyte distribution width [Ratio] by Automated count 15.4 % 11.5 - 14.5 H [facility] Platelets [#/volume] in Blood by Automated count 245 10^3/uL 150 - 45 0 [facility] Platelet mean volume [Entitic volume] in Blood by Automated count 11.3 fL 7.4 - 10.4 H [facility] Neutrophils/100 leukocytes in Blood by Automated count 56.1 % 37. 0 - 80.0 [facility] Lymphocytes/100 leukocytes in Blood by Manual count 34.0 % 25.0 - 40.0 [facility] Monocytes/100 leukocytes in Blood by Automated count 5.8 % 3.0 - 8.0 [facility] Eosinophils/100 leukocytes in Blood by Automated count 3.0 % 0.0 - 7.0 [facility] Basophils/100 leukocytes in Blood by Automated count 1.0 % 0.0 - 2.5 [facility] %IG 0.1 % 0.0 - 0.0 [facility] %NRBC 0.0 % 0.0 - 0.0 [facility] al Neutrophils [#/volume] in Blood by Automated count 4.34 10^3/uL 2.00 - 6.90 [facility] Lymphocytes [#/volume] in Blood by Automated count 2.63 10^3/uL 0.60 - 3.40 [facility] Monocytes [#/volume] in Blood by Automated count 0.45 10^3/uL 0.00 - 0.90 [facility] Eosinophils [#/volume] in Blood by Automated count 0.23 10^3/uL 0.00 - 0.70 [facility] Basophils [#/volume] in Blood by Automated count 0.08 10^3/uL 0.00 - 0.20 [facility] #IG 0.01 10^3/uL 0.00 - 0.10 [facility] H ospital #NRBC 0.00 10^3/uL 0.00 - 0.00 [facility] ospital MANUAL DIFF NOT INDICATED [facility] RBC MORPH NOT INDICATED [facility] Ho spital ID Date Data Source [id number] 04/25/2020 06:08:00 AM EDT [facility] Name Value Range Interpretation Code Description Data Marilia rce(s) Supporting Document(s) Chlamydia trachomatis rRNA [Presence] in Unspecified specimen by Probe and target amplification method Negative Negative [facility] Neisseria gonorrhoeae rRNA [Presence] in Unspecified specimen by Probe and target amplification method Negative Negative [facility] ID Date Data Source [id number] 04/23/2020 11:33:00 AM EDT [facility] Name Value Range Interpretation Code Description Data Marilia rce(s) Supporting Document(s) CULTURE URINE [facility] spital _CULTURE URINE_$$[id number]$$[id number]$$[id number]$$[id number]$$[id number]$$[id number]$$[id number]$$[id number]$$[id number]$$ [id number]$$[id number]$$[id number]$$250003$$[id number]$$[id number]$$[id number]$$[id number]$$[id number]$$415533$$ [id number]$$980789$$801822$$150455$$114163$$[id number]$$[id number]$$[id number] -- Continued on next page --Patient: CAROLINA Pope Order: [id number] Page 2Culture: CULTURE URINE Status: Final ==== -- Continued on next page --Patient: CAROLINA Pope Order: [id number] Page 2Culture: CULTURE URINE Status: Prelim =====$$[id number] DATE/TIME: 04/23/2020 11:05Culture: CULTURE URINE Status: FinalUrine Culture,Comprehensive: P1No growth in 36 - 48 hours. Previous result entered on 04/21/2020 02:56 ET No growth after 18-24 hours.P1 Test performed by: [facility] BRITO #: [id number] [address] [place] [address] [id number] [facility] [id number] Director : Hero Lezama MD NPI #:Lab Di marc : [id number] REF 04/23/[id number].[email or web address] REF ID Date Data Source [id number] 04/18/2020 10:38:00 PM EDT [facility] Name Value Range Interpretation Code Description Data Marilia rce(s) Supporting Document(s) URINALYSIS [facility] Hos[facility] elías URINALYSIS SOURCE R [facility] COLOR yellow NORMAL: Yellow [facility] CLARITY hazy NORMAL: Clear [facility] Specific gravity of Urine by Test strip 1.020 1.001 - 1.030 [facility] pH 6 5 - 9 [facility] Glucose [Mass/volume] in Urine by Test strip NORM NORMAL: Negat [facility] Bilirubin.total [Presence] in Urine by Test strip NEG NORMAL: Negative [facility] Ketones [Presence] in Urine by Test strip 50 NORMAL: Negative A [facility] Protein [Mass/volume] in Urine by Test strip NEG NORMAL: Negat milana [facility] Nitrite [Presence] in Urine by Test strip NEG NORMAL: Negative [facility] BLOOD NEG NORMAL: Negative [facility] Leukocyte esterase [Presence] in Urine by Test strip NEG ABIGAIL L: Negative [facility] Urobilinogen [Mass/volume] in Urine by Test strip NOR less jeromy n 1.0 mg/dL [facility] MICROSCOPIC Not Indicate [facility] Procedure Vital Signs ID Date Data Source [id number] 11/17/2020 02:38:49 PM EST [facility] Name Value Range Interpretation Code Description Data Source(s) WEIGHT RECORDED 190.00 pounds 190.00 pounds [facility] Height 66 Inches 066 Inches [facility] ID Date Data Source [id number] 05/16/2020 07:40:09 PM EDT [facility] Name Value Range Interpretation Code Description Data Source(s) WEIGHT RECORDED 160.70 pounds 160.70 pounds [facility] Height 66 Inches 066 Inches [facility]
[2020-11-24] MEDS ORDERED: BICITRA 30ML SOLN UDC As Ordered ONE (06:17)
[2020-11-24] MEDS ORDERED: ceFAZolin 2 GM/D5W 50 ML IV BAG (J0690 PER 500MG) As Ordered ONE (06:17)
[2020-11-24] MEDS ORDERED: BUPIVACAINE HCL 0.25% 10ML VIAL As Ordered ONE (06:20)
[2020-11-24] MEDS ORDERED: AZITHROMYCIN INJ 500MG VIAL (J0456 PER 500MG) As Ordered ONE (06:21)
[2020-11-24 06:33] LABS: HEMATOCRIT 32.1 % (36.0-47.0); HEMOGLOBIN 9.4 g/dl (12.0-15.5); MEAN CORPUSCULAR HEMOGLOBIN 21.8 pg (27.0-33.0); MEAN CORPUSCULAR HGB CONC 29.3 g/dl (32.0-36.5); MEAN CORPUSCULAR VOLUME 74.5 fl (80.0-96.0); PLATELET COUNT, AUTOMATED 276 10^3/uL (150-450); RED BLOOD COUNT 4.31 10^6/uL (4.00-5.40); WHITE BLOOD COUNT 12.6 10^3/uL (4.0-10.0)
[2020-11-24] MEDS ORDERED: BUPIVACAINE HCL 0.25% 10ML VIAL XX ONE (06:45)
[2020-11-24] MEDS ORDERED: ACETAMINOPHEN 650 MG SUPP PR ONE (06:45)
[2020-11-24] MEDS ORDERED: LR 1,000 ML IV ONE (06:45)
[2020-11-24] MEDS ORDERED: ceFAZolin SOD 2 GM in IV 1 EA IV ONE (06:45)
[2020-11-24] MEDS ORDERED: BICITRA 30ML SOLN UDC PO ONE (06:45)
[2020-11-24] MEDS ORDERED: AZITHROMYCIN INJ 500 MG, VIAL MATE ADAPTER 1 EACH in D5W 250 ML IV ONE (06:45)
[2020-11-24] MEDS ORDERED: LR 1,000 ML IV SCH ×2 (06:45→09:30)
[2020-11-24] MEDS ORDERED: OXYTOCIN INJ 10 UNITS/ML VIAL (J2590) As Ordered ONE ×3 (07:16→08:22)
[2020-11-24] MEDS ORDERED: MORPHINE PRES-FREE INJ 10 MG/10 ML VIAL (J2274) As Ordered ONE (07:16)
[2020-11-24] MEDS ORDERED: NALOXONE INJ 0.4MG/1ML VIAL (J2310 PER 1MG) IV PRN ×2 (07:43)
[2020-11-24] MEDS ORDERED: diphenhydrAMINE 50MG/ML VIAL (J1200) IV PRN (07:43)
[2020-11-24] MEDS ORDERED: ONDANSETRON 4MG/2ML VIAL IV PRN ×2 (07:43→09:30)
[2020-11-24] MEDS ORDERED: METOCLOPRAMIDE INJ 10MG/2ML VIAL (J2765 PER 1) IV PRN ×2 (07:43→09:30)
[2020-11-24] MEDS ORDERED: GLYCOPYRROLATE INJ 0.2 MG/ML 2 ML VIAL As Ordered ONE (07:47)
[2020-11-24] MEDS ORDERED: ONDANSETRON 4MG/2ML VIAL As Ordered ONE (08:21)
[2020-11-24] MEDS ORDERED: dexameTHASONE 4 MG/ML 1ML VIAL (J1100 PER 1MG) As Ordered ONE (08:21)
[2020-11-24 08:36] LABS: CORD GAS ABE A -4.5; CORD GAS HCO3 A 22.9 MEQ/L; CORD GAS O2 SAT A 35.9 %; CORD GAS PCO2 A 51.1 mmHg; CORD GAS PH A 7.27 UNITS; CORD GAS PO2 A 17.8 mmHg; CORD GAS SBC A 19.3 MEQ/L; CORD GAS TCO2 A 24.5 MEQ/L
[2020-11-24] MEDS ORDERED: KETOROLAC 60MG 2ML VIAL As Ordered ONE (08:38)
[2020-11-24 08:39] LABS: CORD GAS ABE V -3.3; CORD GAS HCO3 V 22.5 MEQ/L; CORD GAS O2 SAT V 69.1 %; CORD GAS PCO2 V 43.3 mmHg; CORD GAS PH V 7.334 UNITS; CORD GAS PO2 V 29.2 mmHg; CORD GAS TCO2 V 23.9 MEQ/L
[2020-11-24] MEDS ORDERED: ePHEDrine SULFATE 25 MG/5 ML(5MG/ML) SYRINGE As Ordered ONE (08:49)
[2020-11-24] MEDS ORDERED: fentaNYL 100 MCG/2 ML INJECTION (J3010) As Ordered ONE (08:52)
[2020-11-24] MEDS ORDERED: fentaNYL 100 MCG/2 ML INJECTION (J3010) IV PRN (09:30)
[2020-11-24] MEDS ORDERED: PERCOCET 5MG/325MG TAB PO PRN (09:30)
[2020-11-24] MEDS ORDERED: IBUPROFEN 600MG TAB PO PRN (09:45)
[2020-11-24] MEDS ORDERED: DOCUSATE SODIUM 100MG CAPSULE PO PRN (09:45)
[2020-11-24] MEDS ORDERED: MEASLES,MUMPS,RUBELLA VACCINE INJ (MMR-II) (90707) SC SCH (09:45)
[2020-11-24] MEDS ORDERED: OXYTOCIN DRIP 30 UNITS in IV 1 EA IV ONE (09:45)
[2020-11-24] MEDS ORDERED: ACETAMINOPHEN 650 MG SUPP PR PRN (09:45)
[2020-11-24] MEDS ORDERED: OXYTOCIN INJ 10 UNITS/ML VIAL (J2590) IV ONE (09:45)
[2020-11-24] MEDS ORDERED: MOM 30ML SUSPENSION UDC PO PRN (09:45)
[2020-11-24] MEDS ORDERED: ACETAMINOPHEN TAB 650MG DOSE (2X325MG) PO PRN (09:45)
[2020-11-24] MEDS ORDERED: RHOGAM 300 MCG (1500 IU) INJ (J2790) IM SCH (09:45)
[2020-11-24] MEDS ORDERED: ANUSOL HC CREAM 30GM TOP PRN (09:45)
[2020-11-24] MEDS ORDERED: ACETAMINOPHEN 500 MG TAB PO PRN (09:45)
[2020-11-24] MEDS ORDERED: METHYLERGONOVINE MALEATE 0.2 MG TAB PO PRN (09:45)
[2020-11-24] MEDS ORDERED: OXYTOCIN 30 UNITS IN 0.9% NaCl 500ML IV BAG (J2590) As Ordered ONE (10:48)
--- NOTE | 2020-11-24 11:52 | RO ---
OPERATIVE NOTE DATE OF OPERATION: 11/24/2020 This is a 25-year-old 4, para 2 admitted for repeat section at 36 weeks and 6 days gestation. She has had two previous sections and she has cholestasis of which is significant in that she has elevated liver enzymes and bile salts. PREOPERATIVE DIAGNOSIS: Repeat section x3, cholestasis of . POSTOPERATIVE DIAGNOSIS: Repeat section x3, cholestasis of . OPERATION PROPOSED: Repeat section. PROCEDURE PERFORMED: Repeat section. SURGEON: Kendrick Do MD TOUCH UP PAINTER: Dr. Morrison for extraction, retraction and visualization without which the procedure could not be completed. ANESTHESIA: Spinal plus local anesthetic for intraperitoneal procedures. ESTIMATED BLOOD LOSS: 400 mL. DESCRIPTION OF PROCEDURE: After adequate time out prepped and draped in supine position, Zamorano catheter in the bladder draining clear urine, Acetaminophen suppository 1300 mg per rectum, sequentials in place, appropriate antibiotics preoperatively, a Pfannenstiel incision was made through the two previous Pfannenstiel incisions, passing through abdominal layers, securing hemostasis, opening the peritoneal cavity. We noticed that this lady had a huge varicosity on her left side and had a very thin lower uterine segment. A Mobius was placed in the abdomen. The bladder flap was developed. Small transverse incision into the uterus was made, ARM, draining clear lochia. We delivered a livebirth female infant, 7 pounds 0 ounces, 3170 gm, Apgars of 8 and 9 at 1 and 5 minutes respectively, cord x1 around the neck and around the ankle. Arterial pH 7.27, base excess -4.5, venous pH 7.33, base excess -3.3. Placenta was manually removed, three vessels of the cord, membranes and tissues intact. The uterus contracted well down under Pitocin. The lower segment was oversewn in usual fashion in two layers and reperitonealization was performed. With instrument and pad count correct we viewed the left side. She still had the varicosities, we did remove the Mobius and evaluated the left side, seemed to be stable. We then closed the abdomen with running stitch for peritoneum, same for the fascia, irrigation to subcu, subcuticular stitch was placed. Marcaine 0.25% 10 mL to the incision site. The Mepore dressing was placed. The patient was sent to recovery in good condition.
[2020-11-24] MEDS: KETOROLAC 30 MG/ML 1ML VIAL IV SCH ×2 (15:14→21:13)
[2020-11-25 02:00] VITALS: BP 102/51
[2020-11-25] MEDS: KETOROLAC 30 MG/ML 1ML VIAL IV SCH (03:51)
[2020-11-25 06:00] VITALS: BP 116/55
[2020-11-25 06:55] LABS: HEMATOCRIT 28.4 % (36.0-47.0); HEMOGLOBIN 8.3 g/dl (12.0-15.5); MEAN CORPUSCULAR HEMOGLOBIN 22.3 pg (27.0-33.0); MEAN CORPUSCULAR HGB CONC 29.2 g/dl (32.0-36.5); MEAN CORPUSCULAR VOLUME 76.1 fl (80.0-96.0); PLATELET COUNT, AUTOMATED 231 10^3/uL (150-450); RED BLOOD COUNT 3.73 10^6/uL (4.00-5.40); WHITE BLOOD COUNT 12.7 10^3/uL (4.0-10.0)
--- NOTE | 2020-11-25 07:52 | IPNPDOC ---
Text Note Date of Service The patient was seen on 11/25/20. NOTE Item Value Date Time White Blood Count 12.7 10^3/uL H 11/25/20 0635 Red Blood Count 3.73 10^6/uL L 11/25/20 0635 Hemoglobin 8.3 g/dl L 11/25/20 0635 Hematocrit 28.4 % L 11/25/20 0635 Mean Corpuscular Volume 76.1 fl L 11/25/20 0635 Mean Corpuscular Hemoglobin 22.3 pg L 11/25/20 0635 Mean Corpuscular Hemoglobin Concent 29.2 g/dl L 11/25/20 0635 Red Cell Distribution Width 15.0 % H 11/25/20 0635 Platelet Count 231 10^3/uL 11/25/20 0635 Nucleated Red Blood Cells % (auto) 0.0 % 11/25/20 0635 White Blood Count 12.6 10^3/uL H 11/24/20 0550 Red Blood Count 4.31 10^6/uL 11/24/20 0550 Hemoglobin 9.4 g/dl L 11/24/20 0550 Hematocrit 32.1 % L 11/24/20 0550 Mean Corpuscular Volume 74.5 fl L 11/24/20 0550 Mean Corpuscular Hemoglobin 21.8 pg L 11/24/20 0550 Mean Corpuscular Hemoglobin Concent 29.3 g/dl L 11/24/20 0550 Red Cell Distribution Width 14.9 % H 11/24/20 0550 Platelet Count 276 10^3/uL 11/24/20 0550 Nucleated Red Blood Cells % (auto) 0.0 % 11/24/20 0550 11/25/20 0700 POST OP DAY 1 FOR REPEAT CS X 3 AND CHOLESTASIS IN . POST UNABLE TO VOID SCANNED 600 ML MERRILL REPLACED NOW 0700 REMOVED. FEELING WELL MOBILIZING BREAST FEEDING . PLAN TO VOID HOPEFULLY DISCHARGE TOMORROW Yue SHIPLEY, I+O VSYue I+O Laboratory Tests 11/25/20 06:35 Vital Signs Date Time Temp Pulse Resp B/P (MAP) Pulse Ox O2 Delivery O2 Flow Rate FiO2 11/25/20 06:00 97.4 45 18 116/55 (75) 99 Room Air I&O- Last 24 Hours up to 6 AM 11/25/20 06:00 Intake Total 2405 ml Output Total 1900 ml Balance 505 ml Kendrick Do MD Nov 25, 2020 07:51
[2020-11-25] MEDS: PRENATAL VITAMINS CHEWABLE TABLET PO SCH (09:00)
[2020-11-25 10:00] VITALS: BP 124/66
[2020-11-25] MEDS: IBUPROFEN 800 MG TAB PO SCH ×2 (10:12→18:19)
[2020-11-25 14:00] VITALS: BP 128/63
[2020-11-25] MEDS: PERCOCET 5MG/325MG TAB PO PRN ×2 (15:05→19:34)
[2020-11-25 18:00] VITALS: BP 130/74
[2020-11-25 22:00] VITALS: BP 131/61
[2020-11-26 02:00] VITALS: BP 119/65
[2020-11-26] MEDS: IBUPROFEN 800 MG TAB PO SCH ×2 (03:35→10:43)
[2020-11-26 06:00] VITALS: BP 132/74
[2020-11-26] MEDS: PRENATAL VITAMINS CHEWABLE TABLET PO SCH (08:03)
--- NOTE | 2020-11-26 09:55 | IPNPDOC ---
Progress Note Date of Service: Nov 26, 2020 Day#: 2 Progress Note SUBJECT: Carey is a 25 -year-old 4 now Para 2-1-1-3 POD2 S/P RCD at 36- 6/7 weeks of 7 pounds 0 ounces, 3170 gm, Apgars of 8 and 9 at 1 and 5 minute respectively, cord x1 around the neck and around the ankle. Arterial pH 7.27, base excess -4.5, venous pH 7.33, base excess -3.3. She has been ambulating, voiding spontaneously without issue and tolerating regular diet. Breast feeding without issue. Reports lochia is like a normal period. OBJECTIVE: VITAL SIGNS: Within normal limits, afebrile. Alert and oriented times three. normal work of breathing. Heart rate: Regular rate and rhythm Abdomen: Fundus firm at U-2. ASSESSMENT: Carey is a 25 -year-old 4 now Para 2-1-1-3 POD2 S/P RCD at 36-6/7 weeks of 7 pounds 0 ounces, 3170 gm, Apgars of 8 and 9 at 1 and 5 minute respectively, cord x1 around the neck and around the ankle. Arterial pH 7.27, base excess -4.5, venous pH 7.33, base excess -3.3. Vitals within normal limits, afebrile, hemodynamically stable with no evidence of infection. PLAN: 1. Discharge to home today. 2. Has pain meds at home. 3. Encourage breast feeding and ambulation. 4. Wants the patch for contraception- start after 4 weeks 5. Routine PP visit in 2 and 6 weeks in clinic. 6. Discussed return precautions at length. VS, I&O, 24H, Fishbone Vital Signs/I&O Vital Signs Date Time Temp Pulse Resp B/P (MAP) Pulse Ox O2 Delivery O2 Flow Rate FiO2 11/26/20 06:00 98.4 76 18 132/74 (93) 99 Room Air I&O- Last 24 Hours up to 6 AM 11/26/20 06:00 Output Total 675 ml Balance -675 ml TRISTAN GA MD Nov 26, 2020 09:55
[2020-11-26 10:00] VITALS: BP 122/64
== END 2020-11-26 11:40 | disposition home or self-care (01) | DRG 771 ==
LOC: M LDI 05:23 → M OBS 11:01
PROVIDERS: ADMIT Obstetrics & Gynecology; ATTEND Obstetrics & Gynecology
PROC: 10D00Z1 Extraction of Products of Conception, Low, Open Approach (ICD-10-PCS; principal; 2020-11-24 07:30)
DX: O26.62 Liver and biliary tract disorders in childbirth (principal); K83.1 Obstruction of bile duct; O34.211 Maternal care for low transverse scar from previous cesarean delivery; Z3A.36 36 weeks gestation of pregnancy; O69.81X0 Labor and delivery complicated by cord around neck, without compression, not applicable or unspecified; O69.82X0 Labor and delivery complicated by other cord entanglement, without compression, not applicable or unspecified; D64.9 Anemia, unspecified; O99.02 Anemia complicating childbirth; Z37.0 Single live birth